=== PATIENT | male | born 1945 | race Caucasian/White ===

== ENCOUNTER 2020-11-17 13:34 | Emergency (ER) | payer OTHER ==
--- OUTSIDE RECORDS SUMMARY | 2020-11-17 13:42 | XMS REPORT | Continuity of Care Document ---
:1945 Author Organization [facility] t Address [address] [place] [address] Care Team Providers Name Role Phone Unavailable Unavailable Unavailable Problems Condition Condition Condition Status Onset Resolution Last Treating Co mments Source Name Details Category Date Date Treatment Clinician Date Incomplete Incomplete Diagnosis Active [facility] empt[facility]ying [facility] - of bladder of bladder Me moria l [facility] Elevated Elevated Diagnosis Active [facility] PSA PSA [facility] Allergies, Adverse Reactions, Alerts Allergy Allergy Status Severity Reaction(s) Onset Inactive Treating Comm ents Source Name Type Date Date Clinician Phenerga Adverse Active Info Not [facility] n Reaction Available [facility] Medications Ordered Filled Start Stop Current Ordering Indication Dosage Frequency Signature Comments Components Source Medication Medication Date Date Medication? Clinician (SIG) Name Name Gabapentin Gabapentin Yes Doris [address] [facility] [place] [facility] - [facility] Potassium Potassium Yes Doris [address] [facility] Bicarb-Citr Bicarb-Citr Luigi Lukes - ic Acid ic Acid Memoria l [facility] Losartan Losartan Yes Doris [address] Potassium-H Potassium-H [place] [facility] - CTZ CTZ Memoria l [facility] Coenzyme Coenzyme Yes Doris [address] Q-10 Q-10 [place] with a Lukes - meal Memoria l [facility] Tamsulosin Tamsulosin Yes Doris [address] HCl HCl [place] [facility] - [facility] Metoprolol Metoprolol Yes Doris [address] [facility] [address] Tartrate Tartrate [place] with food [facility] - Memoria l [facility] Zetia Zetia Yes Doris [address] [facility] [place] [facility] - [facility] Aspirin Aspirin Yes Doris [address] [facility] [place] [facility] - Memoria l [facility] Furosemide Furosemide Yes Doris [address] [facility] [place] [facility] Baclofen Baclofen Yes Doris not [facility] [place] defined [facility] Soma Soma Yes Doris not [facility] Compound Compound [place] defined [facility] Levothyroxi Levothyroxi Yes Doris [address] [facility] ne Sodium ne Sodium [place] on an [facility] - empty [facility] stomach [facility] Plavix Plavix Yes Doris [address] [facility] [place] [facility] Procedures This patient has no known procedures. Encounters Start End Encounter Admission Attending Care Care Encounter Source Date/Time Date/Time Type Type Clinicians Facility Department ID 2019-06-24 2019-06-24 Outpatient Iza Duron [id number] [facility] 13:15:00 13:15:00 t Specialty/U Suzanna kes - Specialty rology [facility] Results This patient has no known results.
--- NOTE | 2020-11-17 15:18 | RAD REPORT ---
EXAM DESCRIPTION: Gloria Single View11/17/2020 3:09 pm CLINICAL HISTORY: Shortness of breath COMPARISON: 2019 FINDINGS: The lungs appear grossly clear. Heart is normal size
[2020-11-17 15:33] LABS: Absolute Lymphocytes (CBC) 1.9 K/uL (0.7-4.9); Basophils % 0.9 % (0-1.3); Lymphocytes % 22.9 % (15.3-44.8); MPV 6.7 fL (7.6-11.3); RBC Red Blood Cell Count 4.11 M/uL (4.33-5.43)
[2020-11-17 15:45] LABS: Protime INR 1.03
[2020-11-17] MEDS ORDERED: Ringers Lactate 1,000 ML IV ONE (15:49)
[2020-11-17 15:50] LABS: ALT/SGPT 19 U/L (12-78); AST/SGOT 13 U/L (15-37); Albumin 3.1 g/dL (3.4-5.0); Alkaline Phosphatase 61 U/L (45-117); BUN Blood Urea Nitrogen 19 mg/dL (7-18); Bicarbonate 35 mmol/L (21-32); Bilirubin Direct 0.1 mg/dL (0-0.2); Bilirubin Total 0.4 mg/dL (0.2-1.0); Glucose Level 125 mg/dL (74-106); Magnesium 2.1 mg/dL (1.8-2.4); NT PRO-BNP 70 pg/mL (<450); Potassium 3.7 mmol/L (3.5-5.1); Protein, Total 7.5 g/dL (6.4-8.2); Sodium Level 135 mmol/L (136-145); Troponin (Emerg Dept Use Only) < 0.02 ng/mL (0.0-0.045)
[2020-11-17 16:22] LABS: Arterial Blood Carboxyhemoglob 1.3 % (0-1.5); Blood Gas Oxyhemoglobin 96.4 % (94-97); Blood O2 Saturation 98.7 % (92-98.5)
--- NOTE | 2020-11-17 17:23 | RAD REPORT ---
EXAM DESCRIPTION: CT - Abdomen Pelvis W Contrast - 11/17/2020 4:56 pm CLINICAL HISTORY: Abdominal pain COMPARISON: none. TECHNIQUE: Computed axial tomography of the abdomen pelvis was obtained. 100 cc Isovue-300 was admin istered intravenously. Oral contrast was not requested which limits evaluation of bowel. All CT scans are performed using dose optimization technique as appropriate and may include automated exposure control or mA/KV adjustment according to patient size. FINDINGS: Images are degraded by patient motion artifact The liver, spleen, pancreas, adrenal and right kidney appear unremarkable. 2.8 centimeter left renal cyst. There is no evidence of diverticulitis. Normal appendix. Post surgical changes involve the spine. Degenerative changes Increased density is present within the posterior subcutaneous tissues in the perianal region. IMPRESSION: Increased density is present within the posterior subcutaneous tissues in the perianal r egion. This may indicate inflammation and should be correlated clinically
--- NOTE | 2020-11-17 18:08 | EDPHYS ---
Physician Documentation [facility] Name: Alessandro Mckeon Age: 75 yrs Sex: Male : 1945 Arrival Date: 11/17/2020 Time: 13:37 Bed 26 Private MD: ED Physician Antolin Mcqueen HPI: 11/17 15:48 This 75 yrs old Male presents to ER via Wheelchair with complaints of General jr8 Weakness, Diarrhea. 15:48 For the past month patient has been suffering from persistent diarrhea. Stated that he jr8 has taken a round of Abx by PCP and had a telemedicine visit with Dr. Lombardo. Has not been able to produce stool sample for them for culture. Now to the point where he is getting short of breath at rest and very fatigued . Severity of symptoms: At their worst the symptoms were moderate in the emergency department the symptoms are unchanged. The patient has not experienced similar symptoms in the past. The patient has been recently seen by a physician:. Historical: - Allergies: 13:54 promethazine HCl; ll1 13:54 Phenergan; ll1 - PMHx: 13:54 Hypothyroidism; Hypertensive disorder; ll1 - PSHx: 13:54 7 heart stents; ll1 - Immunization history:: Flu vaccine is not up to date. - Social history:: Smoking status: Patient denies any tobacco usage or history of. ROS: 15:48 Eyes: Negative for injury, pain, redness, and discharge, ENT: Negative for injury, jr8 pain, and discharge, Neck: Negative for injury, pain, and swelling, Cardiovascular: Negative for chest pain, palpitations, and edema, Back: Negative for injury and pain, MS/Extremity: Negative for injury and deformity, Skin: Negative for injury, rash, and discoloration. 15:48 Neuro: Negative for headache, focal weakness, numbness, tingling, and seizure. 15:48 Constitutional: Positive for fatigue, malaise. 15:48 Respiratory: Positive for shortness of breath, at rest. 15:48 Abdomen/GI: Positive for diarrhea, abdominal cramps, Negative for nausea, vomiting. Exam: 15:48 Eyes: Pupils equal round and reactive to light, extra-ocular motions intact. Lids and jr8 lashes normal. Conjunctiva and sclera are non-icteric and not injected. Cornea within normal limits. Periorbital areas with no swelling, redness, or edema. ENT: Nares patent. No nasal discharge, no septal abnormalities noted. Tympanic membranes are normal and external auditory canals are clear. Oropharynx with no redness, swelling, or masses, exudates, or evidence of obstruction, uvula midline. Mucous membranes moist. Neck: Trachea midline, no thyromegaly or masses palpated, and no cervical lymphadenopathy. Supple, full range of motion without nuchal rigidity, or vertebral point tenderness. No Meningismus. Cardiovascular: Regular rate and rhythm with a normal S1 and S2. No gallops, murmurs, or rubs. Normal PMI, no JVD. No pulse deficits. Respiratory: Lungs have equal breath sounds bilaterally, clear to auscultation and percussion. No rales, rhonchi or wheezes noted. No increased work of breathing, no retractions or nasal flaring. Abdomen/GI: Soft, non-tender, with normal bowel sounds. No distension or tympany. No guarding or rebound. No evidence of tenderness throughout. Skin: Warm, dry with normal turgor. Normal color with no rashes, no lesions, and no evidence of cellulitis. Decubitus wound with dressing noted to buttock MS/ Extremity: Pulses equal, no cyanosis. Neurovascular intact. Full, normal range of motion. Neuro: Awake and alert, GCS 15, oriented to person, place, time, and situation. Cranial nerves II-XII grossly intact. Motor strength 5/5 in all extremities. Sensory grossly intact. Vital Signs: 13:56 BP 108 / 52; Pulse 73; Resp 20; Temp 96.4(O); Pulse Ox 91% ; Weight 113.4 kg; Height 5 ll1 ft. 11 in. (180.34 cm); Pain 6/10; 14:35 BP 124 / 74; Pulse 65; Resp 20; Pulse Ox 91% on 2 lpm NC; zb 15:36 BP 105 / 58; Pulse 55; Resp 18; Pulse Ox 92% on 2 lpm NC; zb 17:38 Pulse 70; Resp 18; Pulse Ox 96% on 2 lpm NC; zb 17:45 BP 126 / 61; Pulse 78; Resp 20; Pulse Ox 96% 2 lpm ; zb 13:56 Body Mass Index 34.87 (113.40 kg, 180.34 cm) ll1 MDM: 14:22 Patient medically screened. jr8 18:03 Data reviewed: vital signs, nurses notes, lab test result(s), EKG, radiologic studies, jr8 CT scan, plain films. Data interpreted: Pulse oximetry: on room air is 95 %. Interpretation: acceptable. 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 Response to treatment: the patient's symptoms have mildly improved after treatment. ED course: Patient hydrated for clinical concern for dehydration. No extreme electrolyte abnormality noted. Renal function stable. No cardiac or other blood work findings noted to suggest symptoms. CT without acute bowel process. Rest of imaging and ECG stable. Patient feeling slightly better. Could not give us a stool sample while here. Discussed with them that there is nothing we can admit on currently. Needs to eat and get that stool sample to Dr. Lombardo. If he were to worsen to come back and we would reevaluate. Patient and son understands and are good with plan . 11/17 14:43 Order name: Basic Metabolic Panel; Complete Time: 15:55 11/17 14:43 Order name: CBC with Diff; Complete Time: 15:46 11/17 14:43 Order name: LFT's; Complete Time: 15:55 11/17 14:43 Order name: Magnesium; Complete Time: 15:55 11/17 14:43 Order name: NT PRO-BNP; Complete Time: 15:55 11/17 14:43 Order name: PT-INR; Complete Time: 15:46 11/17 14:43 Order name: Troponin (emerg Dept Use Only); Complete Time: 15:55 11/17 14:43 Order name: XRAY Chest (1 view); Complete Time: 15:38 11/17 14:43 Order name: EKG; Complete Time: 14:44 11/17 14:43 Order name: Cardiac monitoring; Complete Time: 15:32 11/17 15:55 Order name: ABG; Complete Time: 16:58 11/17 16:31 Order name: CT Abd/Pelvis - IV Contrast Only; Complete Time: 17:31 11/17 14:43 Order name: EKG - Nurse/Tech; Complete Time: 15:32 11/17 14:43 Order name: IV Saline Lock; Complete Time: 15:32 11/17 14:43 Order name: Labs collected and sent; Complete Time: 15:32 11/17 14:43 Order name: O2 Per Protocol; Complete Time: 15:32 11/17 14:43 Order name: O2 Sat Monitoring; Complete Time: 15:32 Administered Medications: 15:29 Drug: Ringers - Lactated Ringers Solution 1000 ml Route: IV; Rate: bolus; Site: right zb antecubital; 18:25 Follow up: Response: No adverse reaction; IV Status: Completed infusion; IV Intake: zb 1000ml Disposition Summary: 11/17/20 18:07 Discharge Ordered Location: Home [facility] Problem: new jr8 Symptoms: have improved jr8 Condition: Stable jr8 Diagnosis - Diarrhea, unspecified jr8 - Dehydration jr8 Followup: jr8 - With: Shaheed Lombardo MD - When: 2 - 3 days - Reason: Recheck today's complaints, Continuance of care, Re-evaluation by your physician Discharge Instructions: - Discharge Summary Sheet jr8 - Dehydration, Adult jr8 - Diarrhea, Adult jr8 Forms: - Medication Reconciliation Form jr8 - Thank You Letter jr8 - Antibiotic Education jr8 - Prescription Opioid Use jr8 Addendum: 11/20/2020 13:49 Co-signature as Attending Physician, Antolin Mcqueen MD I agree with the assessment and k dr plan of care. Signatures: Dispatcher [employer] EDFL Antolin Mcqueen MD MD kdr Roszak, Josh, PA PA jr8 Marcel Baker RN RN ll1 Betina Arreola RN RN zb Corrections: (The following items were deleted from the chart) 11/17 14:54 14:44 Chest Single View+RAD.RAD.BRZ ordered. EDFL EDMS 15:55 15:48 Eyes: Pupils equal round and reactive to light, extra-ocular motions intact. Lids jr8 and lashes normal. Conjunctiva and sclera are non-icteric and not injected. Cornea within normal limits. Periorbital areas with no swelling, redness, or edema. ENT: Nares patent. No nasal discharge, no septal abnormalities noted. Tympanic membranes are normal and external auditory canals are clear. Oropharynx with no redness, swelling, or masses, exudates, or evidence of obstruction, uvula midline. Mucous membranes moist. Neck: Trachea midline, no thyromegaly or masses palpated, and no cervical lymphadenopathy. Supple, full range of motion without nuchal rigidity, or vertebral point tenderness. No Meningismus. Cardiovascular: Regular rate and rhythm with a normal S1 and S2. No gallops, murmurs, or rubs. Normal PMI, no JVD. No pulse deficits. Respiratory: Lungs have equal breath sounds bilaterally, clear to auscultation and percussion. No rales, rhonchi or wheezes noted. No increased work of breathing, no retractions or nasal flaring. Abdomen/GI: Soft, non-tender, with normal bowel sounds. No distension or tympany. No guarding or rebound. No evidence of tenderness throughout. Skin: Warm, dry with normal turgor. Normal color with no rashes, no lesions, and no evidence of cellulitis. MS/ Extremity: Pulses equal, no cyanosis. Neurovascular intact. Full, normal range of motion. Neuro: Awake and alert, GCS 15, oriented to person, place, time, and situation. Cranial nerves II-XII grossly intact. Motor strength 5/5 in all extremities. Sensory grossly intact. jr8 16:14 15:56 Abdomen Pelvis W Con+CT.RAD.BRZ ordered. EDMS EDMS
--- NOTE | 2020-11-17 18:08 | ER ---
Nurse's Notes [facility] Name: Alessandro Mckeon Age: 75 yrs Sex: Male : 1945 Arrival Date: 11/17/2020 Time: 13:37 Bed 26 Private MD: Diagnosis: Diarrhea, unspecified;Dehydration Presentation: 11/17 13:56 Chief complaint: Patient states: Weakness, fatigue, diarrhea for 3 days. Chronic ll1 buttocks wound he gets wound care for. Labored breathing noted per son. Coronavirus screen: Client denies travel out of the [place] in the last 14 days. At this time, the client does not indicate any symptoms associated with coronavirus-19. Ebola Screen: Patient denies travel to an Ebola-affected area in the 21 days before illness onset. Initial Sepsis Screen: Does the patient meet any 2 criteria? No. Patient's initial sepsis screen is negative. Does the patient have a suspected source of infection? No. Patient's initial sepsis screen is negative. Risk Assessment: Do you want to hurt yourself or someone else? Patient reports no desire to harm self or others. Onset of symptoms was November 15, 2020. 13:56 Method Of Arrival: Wheelchair ll1 13:56 Acuity: RAVEN 3 ll1 Historical: - Allergies: 13:54 promethazine HCl; ll1 13:54 Phenergan; ll1 - PMHx: 13:54 Hypothyroidism; Hypertensive disorder; ll1 - PSHx: 13:54 7 heart stents; ll1 - Immunization history:: Flu vaccine is not up to date. - Social history:: Smoking status: Patient denies any tobacco usage or history of. Screenin:16 Abuse screen: Denies threats or abuse. Denies injuries from another. Nutritional zb screening: No deficits noted. Tuberculosis screening: No symptoms or risk factors identified. Fall Risk Fall in past 12 months (25 points). Secondary diagnosis (15 points) impaired mobility, IV access (20 points). Ambulatory Aid- None/Bed Rest/Nurse Assist (0 pts). Gait- Normal/Bed Rest/Wheelchair (0 pts) Mental Status- Oriented to own ability (0 pts). Total Saldaña Fall Scale indicates High Risk Score (45 or more points). Fall prevention measures have been instituted. Side Rails Up X 2 Placed Close to Nursing Station Frequent Obs/Assessments Occuring Family Present and informed to notify staff if the need to leave the bedside As available patient and family educated on Fall Prevention Program and Strategies. Assessment: 14:17 General: Appears in no apparent distress. Behavior is calm, cooperative, appropriate zb for age, Reports fatigue for >3 days. Pain: Complains of pain in buttocks and abdomen Pain began gradually, 4 weeks. Neuro: Level of Consciousness is awake, alert, obeys commands, Oriented to person, place, time, situation. Cardiovascular: Patient's skin is warm and dry. Respiratory: Airway is patent Respiratory effort is labored, Respiratory pattern is regular, symmetrical. GI: Abdomen is round distended, Abd is soft and non tender X 4 quads. Reports diarrhea. Derm: Skin is intact, is healthy with good turgor, Skin is dry, Skin is normal. Derm: Decubitus located on sacrum approximately 2.6 cm to 7.5 cm is stage III has erythematous edges is draining moderate amount serosanguinous. Musculoskeletal:. 14:37 Reassessment: ECP at bedside. zb 14:53 Reassessment: x-ray at bedside. zb 15:32 Reassessment: Patient appears in no apparent distress at this time. Patient and/or zb family updated on plan of care and expected duration. Pain level reassessed. family remains at bedside. patient remains on 2 litters of oxygen. EKG given to ECP. IV fluid intact. no issues at this time. 16:45 Reassessment: Patient appears in no apparent distress at this time. Patient and/or zb family updated on plan of care and expected duration. Pain level reassessed. 17:45 Reassessment: Patient appears in no apparent distress at this time. Patient and/or zb family updated on plan of care and expected duration. Pain level reassessed. family remains at bedside. 17:58 Reassessment: ECP at bedside discussing care with patient. zb Vital Signs: 13:56 BP 108 / 52; Pulse 73; Resp 20; Temp 96.4(O); Pulse Ox 91% ; Weight 113.4 kg; Height 5 ll1 ft. 11 in. (180.34 cm); Pain 6/10; 14:35 BP 124 / 74; Pulse 65; Resp 20; Pulse Ox 91% on 2 lpm NC; zb 15:36 BP 105 / 58; Pulse 55; Resp 18; Pulse Ox 92% on 2 lpm NC; zb 17:38 Pulse 70; Resp 18; Pulse Ox 96% on 2 lpm NC; zb 17:45 BP 126 / 61; Pulse 78; Resp 20; Pulse Ox 96% 2 lpm ; zb 13:56 Body Mass Index 34.87 (113.40 kg, 180.34 cm) ll1 ED Course: 13:37 Patient arrived in ED. wm 13:54 Arm band placed on Patient placed in an exam room, on a stretcher. ll1 13:58 Triage completed. ll1 14:00 Betina Arreola, MARY is Primary Nurse. zb 14:22 J Carlos Monroe PA is PHCP. jr8 14:22 Antolin Mcqueen MD is Attending Physician. jr8 15:09 XRAY Chest (1 view) In Process Unspecified. EDMS 15:28 Patient has correct armband on for positive identification. Call light in reach. Side zb rails up X 1. property assessment monitor on. Pulse ox on. NIBP on. Door closed. Noise minimized. 15:28 Initial lab(s) drawn, by me, sent to lab. EKG done, by ED staff, reviewed by J Carlos TALAMANTES. Inserted saline lock: 20 gauge in right antecubital area, using aseptic technique. Blood collected. 16:56 CT Abd/Pelvis - IV Contrast Only In Process Unspecified. EDMS 18:06 Shaheed Lombardo MD is Referral Physician. jr8 18:25 No provider procedures requiring assistance completed. IV discontinued, intact, zb bleeding controlled, No redness/swelling at site. Pressure dressing applied. Administered Medications: 15:29 Drug: Ringers - Lactated Ringers Solution 1000 ml Route: IV; Rate: bolus; Site: right zb antecubital; 18:25 Follow up: Response: No adverse reaction; IV Status: Completed infusion; IV Intake: zb 1000ml Intake: 18:25 IV: 1000ml; Total: 1000ml. zb Outcome: 18:07 Discharge ordered by . jr8 18:25 Discharged to home ambulatory. zb 18:25 Condition: stable 18:25 Discharge instructions given to patient, family, Instructed on discharge instructions, follow up and referral plans. Demonstrated understanding of instructions, follow-up care. 18:25 Patient left the ED. mikael Signatures: Dispatcher [employer] EDMS J Carlos Monroe PA PA jr8 Marcel Baker RN RN ll1 Betina Arreola RN RN Queenie Elizabeth
[2020-11-17 18:34] VITALS: TEMP 96.4
[2020-11-17 18:39] VITALS: O2SAT 96
[2020-11-17 18:41] VITALS: BP 126/61
--- NOTE | 2020-11-21 16:16 | EKG ---
Test Date: 2020-11-17 Test Time: 15:13:17 Material Hauler: KVNG MEASUREMENT RESULTS: Intervals: Rate: 58 [place]: 196 QRSD: 130 QT: 432 QTc: 424 [place]: P: 70 [place]: 196 QRS: 79 T: 43 INTERPRETIVE STATEMENTS: Sinus bradycardia Right bundle branch block Inferior infarct, age undetermined Abnormal ECG Compared to ECG 02/05/2017 10:44:57 Right bundle-branch block now present Sinus arrhythmia no longer present First degree AV block no longer present Myocardial infarct finding still present Electronically Signed On 11-21-20 16:09:18 CDT by Bob Galdamez
== END 2020-11-17 18:25 | disposition home or self-care (01) ==
LOC: ER 13:34
DX: E86.0 Dehydration (principal); I10 Essential (primary) hypertension; Z95.818 Presence of other cardiac implants and grafts; Z88.8 Allergy status to other drugs, medicaments and biological substances
CPT/HCPCS: 96365; 93005; 85025; 80048; 36415; 83735; 85610; 80076; 84484; 83880; 74177; 71045; 82805; 99284; 96366; Q9967; J7120

== ENCOUNTER 2020-11-29 11:17 | Inpatient (IN) | payer OTHER ==
--- OUTSIDE RECORDS SUMMARY | 2020-11-29 11:21 | XMS REPORT | Continuity of Care Document ---
:1945 Author Organization [facility] t Address [address] [place] [address] Care Team Providers Name Role Phone Unavailable Unavailable Unavailable Problems Condition Condition Condition Status Onset Resolution Last Treating Co mments Source Name Details Category Date Date Treatment Clinician Date Incomplete Incomplete Diagnosis Active [facility] emptying emptying [facility]ukes - of bladder of bladder Me moria l [facility] Elevated Elevated Diagnosis Active [facility] PSA PSA [facility] Allergies, Adverse Reactions, Alerts Allergy Allergy Status Severity Reaction(s) Onset Inactive Treating Comm ents Source Name Type Date Date Clinician Phenerga Adverse Active Info Not [facility] n Reaction Available [facility] Medications Ordered Filled Start Stop Current Ordering Indication Dosage Frequency Signature Comments Components Source Medication Medication Date Date Medication? Clinician (SIG) Name Name Gabapentin Gabapentin Yes Doris [address] [place] [facility] - [facility] Potassium Potassium Yes Doris [address] Bicarb-Citr Bicarb-Citr Luigi Lukes - ic Acid ic Acid Memoria l [facility] Losartan Losartan Yes Doris [address] Potassium-H Potassium-H Luigi Lukes - CTZ CTZ Memoria l [facility] Coenzyme Coenzyme Yes Doris [address] Q-10 Q-10 Luigi with a Lukes - meal Memoria l [facility] Tamsulosin Tamsulosin Yes Doris [address] HCl HCl [place] [facility] - [facility] Metoprolol Metoprolol Yes Doris [address] Tartrate Tartrate [place] with food [facility]ukes - Memoria l [facility] Zetia Zetia Yes Doris [address] [facility] [place] [facility] - [facility] Aspirin Aspirin Yes Doris [address] [facility] [place] [facility] - [facility] Furosemide Furosemide Yes Doris [address] [facility] [place] [facility] Baclofen Baclofen Yes Doris not [facility] [place] defined [facility] Soma Soma Yes Doris not [facility] Compound Compound [place] defined [facility] Levothyroxi Levothyroxi Yes Doris [address] [facility] ne Sodium ne Sodium [place] on an [facility] - empty [facility] stomach in l [facility] Plavix Plavix Yes Doris [address] [facility] [place] [facility] Procedures This patient has no known procedures. Encounters Start End Encounter Admission Attending Care Care Encounter Source Date/Time Date/Time Type Type Clinicians Facility Department ID 2019-06-24 2019-06-24 Outpatient Iza Duron [id number] [facility] 13:15:00 13:15:00 t Specialty/U Suzanna kes - Specialty ro[facility] Results This patient has no known results.
[2020-11-29 15:29] LABS: Absolute Lymphocytes (CBC) 2.4 K/uL (0.7-4.9); Basophils % 0.4 % (0-1.3); Hematocrit 38.6 % (39.6-49.0); Lymphocytes % 21.4 % (15.3-44.8); MPV 7.2 fL (7.6-11.3); RBC Red Blood Cell Count 4.23 M/uL (4.33-5.43)
[2020-11-29 15:30] LABS: Protime INR 1.18
--- NOTE | 2020-11-29 16:02 | EDPHYS ---
Physician Documentation [facility] Name: Alessandro Mckeon Age: 75 yrs Sex: Male : 1945 Arrival Date: 11/29/2020 Time: 11:18 Bed 26 Private MD: Leonardo Camara B ED Physician Antolin Mcqueen HPI: 11/29 14:00 This 75 yrs old Male presents to ER via Wheelchair with complaints of Wound cp Check. 14:00 decubitus ulcer. cp 14:00 Onset: The symptoms/episode began/occurred 3 month(s) ago. Associated signs and cp symptoms: Pertinent positives: drainage, Pertinent negatives: fever. patient with chronic decubitus ulcer to coccyx area for past [address] Hunter today at wound care and referred to ED for admission. Historical: - Allergies: 12:15 Phenergan; jl7 12:15 promethazine HCl; jl7 - PMHx: 12:15 Hypertensive disorder; Hypothyroidism; jl7 13:24 weakness; ap3 - PSHx: 12:15 7 heart stents; jl7 - Immunization history:: Adult Immunizations not up to date, Client reports having NOT received the Covid vaccine. - Social history:: Smoking status: Patient denies any tobacco usage or history of. ROS: 14:05 Constitutional: Negative for body aches, chills, fever, poor PO intake. cp 14:05 Eyes: Negative for injury, pain, redness, and discharge. cp 14:05 ENT: Negative for ear pain, sore throat, difficulty swallowing, difficulty handling secretions. 14:05 Cardiovascular: Negative for chest pain, palpitations. 14:05 Respiratory: Negative for cough, shortness of breath, wheezing. 14:05 Abdomen/GI: Positive for abdominal pain, Negative for vomiting, diarrhea, constipation, black/tarry stool, rectal bleeding. 14:05 : Negative for urinary symptoms. 14:05 Skin: Positive for of the coccyx, pressure ulcer. 14:05 Neuro: Negative for altered mental status. 14:05 All other systems are negative. Exam: 14:10 Constitutional: The patient appears in no acute distress, alert, awake, cp non-diaphoretic, non-toxic, well developed, well nourished. 14:10 Head/Face: Normocephalic, atraumatic. cp 14:10 Eyes: Periorbital structures: appear normal, Conjunctiva: normal, no exudate, no injection, Sclera: no appreciated abnormality, Lids and lashes: appear normal, bilaterally. 14:10 ENT: External ear(s): are unremarkable, Nose: is normal, Mouth: Lips: moist, Oral mucosa: moist, Posterior pharynx: Airway: no evidence of obstruction, patent. 14:10 Chest/axilla: Inspection: normal, Palpation: is normal, no crepitus, no tenderness. 14:10 Cardiovascular: Rate: normal. 14:10 Respiratory: the patient does not display signs of respiratory distress, Respirations: normal, no use of accessory muscles, no retractions, labored breathing, is not present, Breath sounds: are clear throughout, no decreased breath sounds. 14:10 Abdomen/GI: Inspection: abdomen appears normal, Bowel sounds: active, all quadrants, Palpation: abdomen is soft and non-tender, in all quadrants. 14:10 Skin: stage 3-4 pressure ulcer noted to area of coccyx with open area the size approximately of golf ball, scant drainage noted, moderate surrounding erythema. 14:10 Neuro: Orientation: to person, place \T\ time. Mentation: is normal. Vital Signs: 12:14 BP 131 / 64; Pulse 78; Resp 17; Temp 97.4; Pulse Ox 99% ; Weight 113.4 kg; Height 6 ft. jl7 (182.88 cm); Pain 8/10; 13:26 BP 94 / 65; Pulse 66; Resp 19; Pulse Ox 96% on R/A; Pain 8/10; ap3 14:30 BP 127 / 79; Pulse 70; Resp 18; Pulse Ox 97% on R/A; ap3 16:07 BP 107 / 73; Pulse 72; Resp 21; Pulse Ox 94% on R/A; ap3 17:54 BP 137 / 68; Pulse 68; Resp 16; Pulse Ox 99% on R/A; ap3 18:38 BP 124 / 63; Pulse 78; Resp 19; Pulse Ox 96% on R/A; ap3 20:17 BP 117 / 64; Pulse 71; Resp 16; Temp 98(O); Pulse Ox 97% on R/A; ak2 12:14 Body Mass Index 33.91 (113.40 kg, 182.88 cm) jl7 MDM: 13:46 Patient medically screened. cp 16:00 Data reviewed: vital signs, nurses notes, lab test result(s). 11/29 13:58 Order name: Basic Metabolic Panel 11/29 13:58 Order name: CBC with Diff; Complete Time: 00:12 11/30 00:12 Interpretation: Normal except: WBC 11.10; RBC 4.23; HGB 12.7; HCT 38.6; MPV 7.2; MN% cp 14.1; MNA 1.6. 11/29 13:58 Order name: LFT's; Complete Time: 00:12 11/30 00:12 Interpretation: Normal except: TP 8.4; ALB 3.0; GLOB 5.4; A/G 0.6. 11/29 13:58 Order name: Magnesium; Complete Time: 00:12 11/29 13:58 Order name: NT PRO-BNP; Complete Time: 00:12 11/29 13:58 Order name: PT-INR; Complete Time: 00:12 11/29 13:58 Order name: Troponin (emerg Dept Use Only); Complete Time: 00:12 11/29 13:58 Order name: Basic Metabolic Panel; Complete Time: 00:12 EDMS 11/30 00:12 Interpretation: Normal except: NA 134; CL 94; CO2 35; BUN 22. 11/29 14:00 Order name: Wound Culture 11/29 14:00 Order name: Procalcitonin; Complete Time: 00:12 11/29 14:00 Order name: Lactate; Complete Time: 00:12 11/29 14:00 Order name: Blood Culture Adult (2) 11/29 14:20 Order name: Urine Microscopic Only; Complete Time: 00:12 11/30 00:13 Interpretation: Normal except: UWBC TNTC; UBACT LOADED. 11/29 17:04 Order name: Urine Dipstick-Ancillary; Complete Time: 00:12 EDMS 11/30 00:13 Interpretation: Normal except: UBLD Trace-intact; U NIT Positive; UESTR 2+. 11/29 17:57 Order name: Vancomycin Level Trough; Complete Time: 00:12 EDMS 11/29 18:45 Order name: SARS-COV-2 RT PCR; Complete Time: 00:12 EDMS 11/30 04:08 Order name: CBC with Automated Diff EDMS 11/30 04:16 Order name: Lipid Profile EDMS 11/30 04:35 Order name: Protime (+INR) EDMS 11/30 12:32 Order name: CORONAVIRUS EDMS 11/30 13:30 Order name: SARS-COV-2 RT PCR EDMS 11/30 14:53 Order name: Hemoglobin A1c EDMS 12/01 06:29 Order name: CBC with Automated Diff EDMS 12/01 06:35 Order name: Basic Metabolic Panel EDMS 12/01 06:35 Order name: Phosphorus EDMS 12/01 06:35 Order name: NT PRO-BNP EDMS 12/01 06:35 Order name: Magnesium EDMS 12/01 07:29 Order name: Protime (+INR) EDMS 12/01 07:29 Order name: PTT, Activated Partial Thromb EDMS 11/29 13:58 Order name: XRAY Chest (1 view); Complete Time: 00:12 cp 11/29 13:58 Order name: EKG; Complete Time: 13:59 cp 11/29 13:58 Order name: Cardiac monitoring; Complete Time: 16:11 cp 11/29 13:58 Order name: EKG - Nurse/Tech; Complete Time: 17:54 cp 11/29 13:58 Order name: IV Saline Lock; Complete Time: 15:20 cp 11/29 13:58 Order name: Labs collected and sent; Complete Time: 15:20 11/29 13:58 Order name: O2 Per Protocol; Complete Time: 13:58 cp 11/29 13:58 Order name: O2 Sat Monitoring; Complete Time: 13:58 cp 11/29 14:51 Order name: CT Abd/Pelvis - IV Contrast Only 11/29 16:55 Order name: CT; Complete Time: 00:12 EDMS 12/01 07:52 Order name: Procalcitonin EDMS 12/01 08:12 Order name: Manual Differential EDMS 12/01 08:43 Order name: Urine Culture EDMS 12/01 11:27 Order name: Creatinine EDMS 12/01 11:27 Order name: Vancomycin Level Trough EDMS 12/01 17:36 Order name: MRI EDMS 12/02 06:03 Order name: Sedimentation Rate, [place] EDMS 12/02 06:08 Order name: CBC with Automated Diff EDMD 12/02 06:12 Order name: Basic Metabolic Panel EDMD 12/02 06:12 Order name: NT PRO-BNP EDMD 12/02 06:12 Order name: Magnesium EDMD 12/02 06:29 Order name: RAD EDMD 12/02 08:11 Order name: Procalcitonin EDMD 12/02 10:22 Order name: Wound Culture EDMD 12/02 13:51 Order name: Anaerobic Culture EDMD 12/03 09:35 Order name: CORONAVIRUS EDMD 12/03 10:30 Order name: SARS-COV-2 RT PCR EDMD 12/03 10:51 Order name: Vancomycin Level Trough EDMD 11/29 14:07 Order name: Shirley; Complete Time: 14:58 ap3 11/29 14:20 Order name: Urine Dipstick-Ancillary (obtain specimen); Complete Time: 17:07 cp Administered Medications: 15:40 Drug: NS 0.9% 500 ml Route: IV; Rate: 500 ml/hr; Site: right antecubital; ap3 17:54 Follow up: IV Status: Completed infusion; IV Intake: 500ml ap3 18:41 Follow up: IV Status: Completed infusion; IV Intake: 500ml ap3 18:37 Not Given (Physician Discretion): vancoMYCIN 1 grams IVPB once over 2 hrs ap3 18:37 Not Given (Physician Discretion): Zosyn (piperacillin-tazobactam) 3.375 grams IVPB once ap3 over 60 mins; (mix in NS 100 mL) Disposition: 12/04 06:52 Co-signature as Attending Physician, Antolin Mcqueen MD I agree with the assessment and kdr plan of care. Disposition Summary: 11/29/20 16:01 Hospitalization Ordered Hospitalization Status: Inpatient Admission cp Provider: Alona Allen cp Condition: Stable cp Problem: an ongoing problem cp Symptoms: have improved cp Bed/Room Type: Standard cp Location: Telemetry/MedSurg (Inpatient)(12/03/20 13:38) dw Room Assignment: 214(12/03/20 13:38) dw Diagnosis - Unspecified open wound of unspecified buttock, initial encounter cp - UTI/ Urinary tract infection, site not specified cp Discharge Instructions: - Discharge Summary Sheet ss Forms: - Medication Reconciliation Form cp - SBAR form cp Signatures: Dispatcher [employer] EDMS Sarah Obregon RN RN Parisa Davidson, RN RN dw Antolin Mcqueen MD MD kdr Page, Corey, PA PA cp Leal, Jahala RN RN jl7 Tequila Cross RN RN ap3 Corrections: (The following items were deleted from the chart) 11/29 14:20 14:07 Shirley ordered. [facility] 15:50 14:00 CORONAVIRUS+MR.LAB.BRZ ordered. EDMS EDMS :14 16:01 Telemetry/MedSurg (Inpatient) [facility] 20:14 16:01 [facility] 12/03 13:38 11/29 20:14 BR ER HOLD [facility] 12/03 13:38 11/29 20:14 ERHOLD- [facility]
--- NOTE | 2020-11-29 16:02 | ER ---
Nurse's Notes [facility] Name: Alessandro Mckeon Age: 75 yrs Sex: Male : 1945 Arrival Date: 11/29/2020 Time: 11:18 Bed 26 Private MD: Leonardo Camara B Diagnosis: Unspecified open wound of unspecified buttock, initial encounter;UTI/ Urinary tract infection, site not specified Presentation: 11/29 12:14 Chief complaint: Spouse and/or significant other states: Sent by Dr. Hunter for jl7 sacral wound that's not healing. Coronavirus screen: Client denies travel out of the [place] in the last 14 days. At this time, the client does not indicate any symptoms associated with coronavirus-19. Ebola Screen: No symptoms or risks identified at this time. Initial Sepsis Screen: Does the patient meet any 2 criteria? No. Patient's initial sepsis screen is negative. Does the patient have a suspected source of infection? No. Patient's initial sepsis screen is negative. Risk Assessment: Do you want to hurt yourself or someone else? Patient reports no desire to harm self or others. Onset of symptoms was August 29, 2020. 12:14 Method Of Arrival: Wheelchair jl7 12:14 Acuity: RAVEN 3 jl7 Triage Assessment: 12:15 General: Appears in no apparent distress. uncomfortable, Behavior is calm, cooperative, jl7 appropriate for age. Pain: Complains of pain in buttocks Pain currently is 8 out of 10 on a pain scale. Historical: - Allergies: 12:15 Phenergan; jl7 12:15 promethazine HCl; jl7 - PMHx: 12:15 Hypertensive disorder; Hypothyroidism; jl7 13:24 weakness; ap3 - PSHx: 12:15 7 heart stents; jl7 - Immunization history:: Adult Immunizations not up to date, Client reports having NOT received the Covid vaccine. - Social history:: Smoking status: Patient denies any tobacco usage or history of. Screenin:24 Abuse screen: Denies threats or abuse. Nutritional screening: No deficits noted. ap3 Tuberculosis screening: No symptoms or risk factors identified. Fall Risk Fall in past 12 months (25 points). Secondary diagnosis (15 points) impaired mobility, No IV (0 pts). Ambulatory Aid- Crutches/Cane/Walker (15 pts). Gait- Impaired (20 pts.). Mental Status- Oriented to own ability (0 pts). Total Saldaña Fall Scale indicates High Risk Score (45 or more points). Fall prevention measures have been instituted. Side Rails Up X 2 Placed Close to Nursing Station Frequent Obs/Assessments Occuring Family Present and informed to notify staff if the need to leave the bedside As available patient and family educated on Fall Prevention Program and Strategies. Assessment: 13:22 General: Appears in no apparent distress. Behavior is calm, cooperative, appropriate ap3 for age. Pain: Complains of pain in coccyx Pain does not radiate. Pain currently is 8 out of 10 on a pain scale. Pain began gradually, over the last couple of months Is chronic. Neuro: Level of Consciousness is awake, alert, obeys commands, Oriented to person, place, time, situation. Cardiovascular: Denies chest pain, shortness of breath, Capillary refill < 3 seconds Patient's skin is warm and dry. Respiratory: Airway is patent Respiratory effort is even, unlabored, Respiratory pattern is regular, symmetrical. GI: Patient currently denies diarrhea, nausea. : Reports inability to void, patient self caths to void. EENT: No signs and/or symptoms were reported regarding the EENT system. Derm: Wound noted coccyx. 16:06 Reassessment: Patient and/or family updated on plan of care and expected duration. Pain ap3 level reassessed. Patient is alert, oriented x 3, equal unlabored respirations, skin warm/dry/pink. 17:55 Reassessment: Patient and/or family updated on plan of care and expected duration. Pain ap3 level reassessed. pt resting. eyes closed. respirations even and unlabored. patients son is at the bedside. 20:17 General: Pan Mckeon (son):[phone]. ak2 20:59 Reassessment: clean of bm. pt wound dressed.. ak2 21:38 General: report given to rn. ak2 Vital Signs: 12:14 BP 131 / 64; Pulse 78; Resp 17; Temp 97.4; Pulse Ox 99% ; Weight 113.4 kg; Height 6 ft. jl7 (182.88 cm); Pain 8/10; 13:26 BP 94 / 65; Pulse 66; Resp 19; Pulse Ox 96% on R/A; Pain 8/10; ap3 14:30 BP 127 / 79; Pulse 70; Resp 18; Pulse Ox 97% on R/A; ap3 16:07 BP 107 / 73; Pulse 72; Resp 21; Pulse Ox 94% on R/A; ap3 17:54 BP 137 / 68; Pulse 68; Resp 16; Pulse Ox 99% on R/A; ap3 18:38 BP 124 / 63; Pulse 78; Resp 19; Pulse Ox 96% on R/A; ap3 20:17 BP 117 / 64; Pulse 71; Resp 16; Temp 98(O); Pulse Ox 97% on R/A; ak2 12:14 Body Mass Index 33.91 (113.40 kg, 182.88 cm) jl7 ED Course: 11:18 Patient arrived in ED. am2 11:18 Leonardo Camara MD is Private Physician. am2 12:15 Triage completed. jl7 12:15 Arm band placed on right wrist. Patient placed in waiting room, Patient notified of jl7 wait time. 13:11 Tequila Cross, MARY is Primary Nurse. ap3 13:25 Patient has correct armband on for positive identification. Bed in low position. Call ap3 light in reach. Side rails up X2. Adult w/ patient. Pulse ox on. NIBP on. Door closed. Noise minimized. Warm blanket given. 13:27 Epifanio Go PA is PHCP. cp 13:27 Antolin Mcqueen MD is Attending Physician. cp 13:33 Pt visited by son. ap3 13:47 Nurse Practitioner and/or Physician Manager Home Improvement to see patient. ap3 15:30 XRAY Chest (1 view) In Process Unspecified. EDMS 15:59 Alona Allen MD is Hospitalizing Provider. cp 16:17 Patient moved to [place] via wheelchair. ap3 Administered Medications: 15:40 Drug: NS 0.9% 500 ml Route: IV; Rate: 500 ml/hr; Site: right antecubital; ap3 17:54 Follow up: IV Status: Completed infusion; IV Intake: 500ml ap3 18:41 Follow up: IV Status: Completed infusion; IV Intake: 500ml ap3 18:37 Not Given (Physician Discretion): vancoMYCIN 1 grams IVPB once over 2 hrs ap3 18:37 Not Given (Physician Discretion): Zosyn (piperacillin-tazobactam) 3.375 grams IVPB once ap3 over 60 mins; (mix in NS 100 mL) Intake: 17:54 IV: 500ml; Total: 500ml. ap3 18:41 IV: 500ml; Total: 1000ml. ap3 Outcome: 16:01 Decision to Hospitalize by Provider. cp 12/03 14:42 Patient left the ED. ll1 Signatures: Dispatcher [employer] EDMS Epifanio Go PA PA cp Dorie Morales, RN RN jl7 Tequila Scott Amanda, RN RN ap3 Marcel Baker RN RN ll1 Alan Turpin
[2020-11-29 16:06] LABS: ALT/SGPT 22 U/L (12-78); AST/SGOT 17 U/L (15-37); Alkaline Phosphatase 72 U/L (45-117); BUN Blood Urea Nitrogen 22 mg/dL (7-18); Bicarbonate 35 mmol/L (21-32); Bilirubin Direct 0.2 mg/dL (0-0.2); Bilirubin Total 0.6 mg/dL (0.2-1.0); Glucose Level 106 mg/dL (74-106); Magnesium 2.3 mg/dL (1.8-2.4); NT PRO-BNP 107 pg/mL (<450); Protein, Total 8.4 g/dL (6.4-8.2); Sodium Level 134 mmol/L (136-145); Troponin (Emerg Dept Use Only) < 0.02 ng/mL (0.0-0.045)
[2020-11-29] MEDS ORDERED: NA CHLORIDE 0.9% 500 ML ONE (16:08)
[2020-11-29] MEDS ORDERED: ACETAMINOPHEN 500 MG TAB PO PRN (16:13)
[2020-11-29] MEDS ORDERED: ONDANSETRON 4 MG/2 ML VIAL IV PRN (16:13)
--- NOTE | 2020-11-29 16:25 | P.HP ---
Certification for Inpatient Patient admitted to: Inpatient With expected LOS: >2 Midnights Patient will require the following post-hospital care: None Practitioner: I am a practitioner with admitting privileges, knowledge of patient current condition, hospital course, and medical plan of care. Services: Services provided to patient in accordance with Admission requirements found in Title 42 Section 412.3 of the Code of Federal Regulations <Perla Sawyer Bridger - Last Filed: 11/30/20 04:24> Patient History Date of Service: 11/29/20 Reason for admission: Sacral wound History of Present Illness: Patient is a 75-year-old male with a past medical history significant for hypothyroidism, GERD, hypertension, obesity, CAD, neuropathy who presents with complaint of sacral wound. Patient reports that he has been having decubitus ulcer in the coccyx since August 29, 2020. Patient follows up with surgeon at the wound care center. Patient also have ulcers under his right leg and upper back. Patient followed up with surgeon at the wound care center today and was referred to the hospital for possible incision and debridement. Patient reports associated signs and symptoms of low-grade fever, sacral pain, weakness and fatigue. Patient denies any other signs or symptoms. Symptoms are aggravated or relieved by nothing. Patient decided to present to the hospital as directed by his wound care doctor. Home medications list reviewed: No - Past Medical/Surgical History Diabetic: No -: Hypothyroidism -: GERD -: HTN -: Neuropathy -: Obesity -: Claustrophobia -: CAD -: back surgery -: bilateral knee surgery -: endartarectomy -: heart stents x7 -: bladder sx - Family History Mother -: Heart disease, Diabetes Father -: Hypertension - Social History Smoking Status: Never smoker Alcohol use: No CD- Drugs: No Caffeine use: Yes Place of Residence: Home <Perla Sawyer - Last Filed: 11/30/20 04:24> Date of Service: 11/29/20 <Alona Allen - Last Filed: 12/01/20 23:48> Allergies promethazine HCl [From Phenergan] Adverse Reaction (Verified 07/04/15 05:05) "makes me go crazy" Home Medications: Clopidogrel Bisulfate [Plavix*] 75 mg PO DAILY 07/04/15 Ezetimibe [Zetia*] 10 mg PO DAILY 07/04/15 Furosemide [Lasix] 40 mg PO BID 09/07/19 Levothyroxine Sodium [Synthroid] 175 mcg PO DAILY 09/07/19 Cholestyramine/Aspartame [Cholestyramine Light Packet] 2 packet PO BEDTIME 11/30/20 Famotidine 1 tab PO BEDTIME 11/30/20 Hydralazine [Apresoline*] 1 tab PO TID 11/30/20 Metoprolol Tartrate 1 tab PO DAILY 11/30/20 Tamsulosin [Flomax*] 1 cap PO DAILY 11/30/20 Review of Systems General: Fever, Weakness, Other (Fatigue ) Eyes: Unremarkable ENT: Unremarkable Respiratory: Unremarkable Cardiovascular: Unremarkable Gastrointestinal: Unremarkable Genitourinary: Unremarkable Musculoskeletal: Unremarkable Integumentary: Unremarkable Neurological: Weakness Lymphatics: Unremarkable <Perla Sawyer E - Last Filed: 11/30/20 04:24> Physical Examination - Physical Exam General: Alert, Oriented x3 HEENT: Atraumatic, PERRLA, Mucous membr. moist/pink, EOMI, Sclerae nonicteric Neck: Supple, 2+ carotid pulse no bruit, No LAD, Without JVD or thyroid abnormality Respiratory: Clear to auscultation bilaterally, Normal air movement Cardiovascular: No edema, Regular rate/rhythm, Normal S1 S2 Capillary refill: <2 Seconds Gastrointestinal: Normal bowel sounds, No tenderness Musculoskeletal: No clubbing, No tenderness Integumentary: No rashes, Skin breakdown, Pressure ulcer Neurological: Normal gait, Normal speech, Normal strength at 5/5 x4 extr, Normal tone, Normal affect Lymphatics: No axilla or inguinal lymphadenopathy Urinary: Shirley catheter External genitalia: Deferred Rectal: Deferred - Studies Laboratory Data (last 24 hrs) 11/29/20 15:12: PT 13.6 H, INR 1.18 11/29/20 15:12: WBC 11.10 H D, Hgb 12.7 L, Hct 38.6 L, Plt Count 328 11/29/20 15:12: Sodium 134 L, Potassium 4.0, BUN 22 H, Creatinine 0.80, Glucose 106, Magnesium 2.3, Total Bilirubin 0.6, AST 17, ALT 22, Alkaline Phosphatase 72 <Perla Sawyer E - Last Filed: 11/30/20 04:24> - Studies Microbiology Data (last 24 hrs): 11/29/20 14:17 Wound - Coccyx Gram Stain - Final <Alona Allen - Last Filed: 12/01/20 23:48> Assessment and Plan - Plan --Decubitus ulcer. Blood and wound cultures pending. Patient sent from surgeon's clinic for possible I&D. Surgeon consulted. Patient placed on antibiotics. Will await further recommendations from surgeon. --Acute pain. We will manage pain with current pain medication regimen. --Hypertension. Stable. Continue home medications. --GERD. Continue Home medications. --Class I obesity. Likely secondary to excess calories intake. Patient co unseled on diet and exercise therapy. --Hypothyroidism. Continue Synthroid. --History of CAD with stents. Continue aspirin and Plavix when appropriate --Peripheral neuropathy. Continue gabapentin. --DVT prophylaxis with heparin subQ. Discharge Plan: Home Plan to discharge in: Greater than 2 days - Advance Directives Does patient have a Living Will: No Does patient have a Durable POA for Healthcare: No - Code Status/Comfort Care Code Status Assessed: Yes Code Status: Full Code Physician Review: Patient Assessed, Agree with Above Assessment and Plan Critical Care: No <Perla Sawyer - Last Filed: 11/30/20 04:24> - Problems (Diagnosis) (1) Pressure ulcer of coccygeal region, stage 3 Current Visit: No Status: Ruled-out (2) CAD (coronary artery disease) Current Visit: No Status: Acute (3) GERD (gastroesophageal reflux disease) Current Visit: No Status: Acute (4) Hx of heart artery stent Current Visit: No Status: Acute (5) Hypertension Current Visit: No Status: Acute (6) Hypothyroidism Current Visit: No Status: Acute (7) Obesity (BMI 30.0-34.9) Current Visit: No Status: Acute <Alona Allen - Last Filed: 12/01/20 23:48> Date of Service: 11/29/20 Chart reviewed; events of the last 24 hr noted. Spoke with General surgery Dr. Hunter he wants to admit the patient to the hospital for possible debridement of the wound. However, patient will need continued IV antibiotic therapy. Will Consul wound healing for assistance with management of the wound. Patient's also who recently need really does not have anyone to care for him. Patient may benefit from going to a nursing facility for shelter care including physical therapy and wound healing. <Alona Allen - Last Filed: 12/01/20 23:48>
--- NOTE | 2020-11-29 16:54 | RAD REPORT ---
EXAM DESCRIPTION: CT - Abdomen Pelvis W Contrast - 11/29/2020 4:27 pm CLINICAL HISTORY: Abdominal pain COMPARISON: none. TECHNIQUE: Computed axial tomography of the abdomen pelvis was obtained. 100 cc Isovue-300 was admin istered intravenously. Oral contrast was not requested which limits evaluation of bowel. All CT scans are performed using dose optimization technique as appropriate and may include automated exposure control or mA/KV adjustment according to patient size. FINDINGS: Decubitus ulcer posterior lower pelvis. No abscess seen The liver, spleen, pancreas, adrenal and right kidney appear unremarkable. 2.8 centimeter left renal cyst. There is no evidence of diverticulitis. Normal appendix. Post surgical changes involve the spine. Degenerative changes Shirley catheter within the the bladder. The bladder wall is thickened. IMPRESSION: Decubitus ulcer posterior lower pelvis. No abscess seen
--- NOTE | 2020-11-29 16:57 | RAD REPORT ---
EXAM DESCRIPTION: Gloria Single View11/29/2020 3:31 pm CLINICAL HISTORY: Abdominal pain COMPARISON: none FINDINGS: The lungs appear clear of acute infiltrate. The heart is normal size IMPRESSION: No acute abnormalities displayed
[2020-11-29] MEDS: HEPARIN 5000 UNIT/ML 1 ML VIAL SQ SCH (17:00)
[2020-11-29 17:04] LABS: Urine Blood Trace-intact (Negative); Urine Glucose Negative (Negative); Urine Protein Negative (Negative); Urine Specific Gravity 1.015 (1.005-1.030); Urine pH 5.5 (5.0-7.0)
[2020-11-29 17:31] LABS: Urine Bacteria LOADED /HPF (NONE SEEN); Urine RBC <5 /HPF (NONE SEEN)
[2020-11-29] MEDS ORDERED: CEFEPIME/SWI 1gm 10 ML IVP SCH (21:00)
[2020-11-29] MEDS ORDERED: CEFEPIME 1 GM/VIAL IV SCH (21:00)
[2020-11-29] MEDS ORDERED: VANCOMYCIN 1.25 GM in NA CHLORIDE 0.9% 250 ML IVPB SCH (21:00)
[2020-11-29] MEDS ORDERED: VANCOMYCIN 1 GM/VIAL ONE (22:32)
[2020-11-29] MEDS ORDERED: NA CHLORIDE 0.9% 250 ML ONE (22:32)
[2020-11-30] MEDS: HEPARIN 5000 UNIT/ML 1 ML VIAL SQ SCH ×3 (00:26→16:42)
[2020-11-30] MEDS ORDERED: HEPARIN 5000 UNIT/ML 1 ML VIAL ONE ×3 (01:22→14:02)
[2020-11-30] MEDS ORDERED: MORPHINE 4 MG/ML SYR ONE ×3 (03:42→20:42)
[2020-11-30] MEDS: MORPHINE 4 MG/ML SYR IV PRN ×3 (03:50→20:24)
[2020-11-30 03:58] LABS: Absolute Lymphocytes (CBC) 1.8 K/uL (0.7-4.9); Basophils % 0.4 % (0-1.3); Hematocrit 34.2 % (39.6-49.0); Lymphocytes % 20.9 % (15.3-44.8); MPV 7.5 fL (7.6-11.3); RBC Red Blood Cell Count 3.77 M/uL (4.33-5.43)
[2020-11-30 04:00] LABS: Protime INR 1.22
[2020-11-30] MEDS: VANCOMYCIN 2 GM in NA CHLORIDE 0.9% 500 ML IVPB SCH ×2 (10:19→23:00)
--- NOTE | 2020-11-30 17:28 | P.PN ---
Subjective Date of Service: 11/30/20 Subjective: No new changes, No C/O voiced, Improving Patient scheduled for debridement in the morning. Continue wound healing; possible placement at nursing facility. Review of Systems 10-point ROS is otherwise unremarkable Physical Examination - Vital Signs Temperature: 97.7 F Blood Pressure: 135/50 Pulse: 84 Respirations: 18 Pulse Ox (%): 98 - Physical Exam General: Alert, In no apparent distress, Oriented x3 Cardiovascular: Regular rate/rhythm, Normal S1 S2, Systolic murmur Gastrointestinal: Normal bowel sounds, Soft and benign, Non-distended, No tenderness Musculoskeletal: No clubbing, No swelling, Tenderness (Spinal tenderness) Neurological: Sensation intact, Cranial nerves 3-12 intact - Studies Laboratory Data (last 24 hrs) 11/30/20 03:09: Triglycerides 101, Cholesterol 170, HDL Cholesterol 33 L, Cholesterol/HDL Ratio 5.15 11/30/20 03:09: PT 14.1 H, INR 1.22 11/30/20 03:09: WBC 8.60 D, Hgb 11.6 L, Hct 34.2 L, Plt Count 299 11/29/20 15:12: Sodium Cancelled, Potassium Cancelled, BUN Cancelled, Creatinine Cancelled, Glucose Cancelled Microbiology Data (last 24 hrs): 11/29/20 14:17 Wound - Coccyx Gram Stain - Final Medications List Reviewed: Yes Assessment & Plan - Problems (Diagnosis) (1) Pressure ulcer of coccygeal region, stage 3 Current Visit: No Status: Ruled-out (2) CAD (coronary artery disease) Current Visit: No Status: Acute (3) GERD (gastroesophageal reflux disease) Current Visit: No Status: Acute (4) Hx of heart artery stent Current Visit: No Status: Acute (5) Hypertension Current Visit: No Status: Acute (6) Hypothyroidism Current Visit: No Status: Acute (7) Obesity (BMI 30.0-34.9) Current Visit: No Status: Acute - Plan 1. Continue with IV antibiotic 2. Continue with local wound care 3. Wound care consultation/surgical consultation appreciated 4. Gentle IV hydration 5. Monitor CBC 6. Strict blood sugar monitoring 7. Pain control 8. GI and DVT prophylaxis Discharge Plan: Home Plan to discharge in: Greater than 2 days - Advance Directives Does patient have a Living Will: Yes Does patient have a Durable POA for Healthcare: No - Code Status/Comfort Care Code Status: Full Code Physician Review: Patient Assessed, Agree with Above Assessment and Plan Critical Care: No Time Spent Managing PTS Care (In Minutes): 45
[2020-11-30 20:29] VITALS: BMI 33.9
[2020-11-30] MEDS ORDERED: MELATONIN 5 MG TABLET PO ONE (21:51)
[2020-11-30] MEDS ORDERED: NA CHLORIDE 0.9% 500 ML ONE ×3 (22:59→23:36)
[2020-11-30] MEDS ORDERED: VANCOMYCIN 1 GM/VIAL ONE ×2 (22:59→23:05)
[2020-12-01] MEDS: HEPARIN 5000 UNIT/ML 1 ML VIAL SQ SCH ×3 (01:00→17:00)
[2020-12-01] MEDS: NA CHLORIDE 0.9% 1,000 ML IV SCH ×2 (02:00→13:05)
[2020-12-01] MEDS ORDERED: HEPARIN 5000 UNIT/ML 1 ML VIAL ONE (02:43)
[2020-12-01] MEDS ORDERED: NA CHLORIDE 0.9% 1,000 ML ONE (02:43)
[2020-12-01 06:14] LABS: Absolute Lymphocytes (CBC) 1.4 K/uL (0.7-4.9); Basophils % 0.5 % (0-1.3); Hematocrit 32.4 % (39.6-49.0); MPV 6.9 fL (7.6-11.3); RBC Red Blood Cell Count 3.52 M/uL (4.33-5.43)
[2020-12-01 06:27] LABS: BUN Blood Urea Nitrogen 15 mg/dL (7-18); Bicarbonate 31 mmol/L (21-32); Glucose Level 118 mg/dL (74-106); Magnesium 2.1 mg/dL (1.8-2.4); NT PRO-BNP 188 pg/mL (<450); Phosphorus 3.4 mg/dL (2.5-4.9); Potassium 4.1 mmol/L (3.5-5.1); Sodium Level 133 mmol/L (136-145)
[2020-12-01 07:27] LABS: Protime INR 1.16
[2020-12-01 08:12] LABS: Blood Morphology Comment NOT SEEN (NOT SEEN); Platelet Estimate ADEQ
[2020-12-01] MEDS ORDERED: ACETAMINOPHEN 500 MG TAB ONE (11:27)
[2020-12-01] MEDS: VANCOMYCIN 2 GM in NA CHLORIDE 0.9% 500 ML IVPB SCH (11:44)
[2020-12-01] MEDS: BUPIVACAINE 0.5% PF 10 ML VIAL ONE ×2 (12:19→13:20)
[2020-12-01] MEDS ORDERED: ONDANSETRON 4 MG/2 ML VIAL ONE (12:54)
[2020-12-01] MEDS ORDERED: propofoL 200 MG/20 ML VIAL IV ONE (12:54)
[2020-12-01] MEDS ORDERED: LIDOCAINE 2% MPF 5 ML VIAL ONE (12:54)
[2020-12-01] MEDS ORDERED: FENTANYL CITR 100 MCG/2 ML ONE (12:54)
--- NOTE | 2020-12-01 13:00 | CON ---
Date of Consultation: 11/30/2020 This patient was seen at the ER. History Of Present Illness: This is the case of a 75-year-old patient, known by us due to history of sacral ulcer. Unfortunately in the last few months, he lost his where she used to be very atte ntive with him. Since then, his wounds are getting worse. [facility], we noticed the area is getting worse with foul smelling and need debridement. So, t he patient was admitted to the hospital with infected ulcer and plan for surgical debridement. Past Medical History: Includes thyroid disease, high blood pressure. Please see my history and phys ical [facility] with details about the history in the past. Past Surgical History: Surgeries include cardiac stents. Peripheral vascular disease. Medications: Reviewed. Allergies: PROMETHAZINE AND PHENERGAN. Review of Systems: Denied any shortness of breath, any chest pain. Ten points otherwise unremarkable. Physical Examination: General: The patient is awake, alert. HEENT: Pupils anicteric. Chest: Clear. Abdomen: Soft and depressible. Integumentary: The patient has a stage IV necrotic and infected circular ulcer. Extremities: Good capillary refill. Laboratory Data: Previous blood work reviewed. Assessment: Necrotic infected ulcer of sacral, stage IV. Procedure is excisional debridement with b enefits, alternatives, and risks including, but not limited to infection, bleeding, damage to adjacen t structures, nonhealing wound, [place], and even . He also understands the importance of nutrition, offloading and well healed this wound before, so he is capable of doing so, but obviously we underst and the social issues that happened, although sad, we still have to get control of this wound and we are going to ask him to be a little bit more attentive of the pressure. HM/MODL Voice ID: [id number] Report ID: [id number]
--- NOTE | 2020-12-01 13:00 | P.BOP ---
Preoperative diagnosis: necrotic infected sacral decubitus ulcer Postoperative diagnosis: same Primary procedure: 1. Excisional debridement necrotic infected sacral decubitus ulcer Secondary procedure: 6 x 6 x 2.5 cm Other procedure(s): 2. Pulse lavage Estimated blood loss: < 10cc Specimen: culture, necrotic tissue Findings: see dicta Anesthesia: General Complications: None Drain(s): Other Transferred to: Recovery Room Condition: Good
[2020-12-01] MEDS ORDERED: ESMOLOL HCL 10 ML IV ONE (13:45)
[2020-12-01] MEDS: ENSURE HIGH PROTEIN 237 ML CAN PO SCH ×2 (15:45→21:00)
[2020-12-01] MEDS: JUVEN PACKET PO SCH ×2 (15:45→21:00)
--- NOTE | 2020-12-01 17:35 | RAD REPORT ---
EXAM DESCRIPTION: MRI - Sacrum/Coccyx Wo Cont - 12/01/2020 5:19 pm CLINICAL HISTORY: osteo Pain and swelling to sacrum and coccyx. COMPARISON: No comparisons FINDINGS: A large, deep posterior soft tissue ulceration is present. The ulceration is 4 cm in anter ior posterior dimension, 3.5 cm transverse dimension and approximately 3 cm depth. Irregular edematou s tissue is seen extending the from the large ulceration into the presacral space. The coccygeal segm ents demonstrate diminished T1 signal with elevated T2/IR signal present. This likely indicates mild osteomyelitis. No localized fluid collection to suggest abscess. IMPRESSION: Mild osteomyelitis of the residual coccygeal segments suspected. Large posterior soft tissue ulceration.
--- NOTE | 2020-12-01 23:52 | OP ---
Date of Procedure: 12/01/2020 Surgeon: Anthony Hunter MD Preoperative Diagnosis: Necrotic infected sacral decubitus ulcer. Postoperative Diagnosis: Necrotic infected sacral decubitus ulcer. Procedure: Excisional debridement of necrotic infected decubitus ulcer on the sacrum. It is about 6 x 6 x 2.5 cm with pulse lavage treatment. Anesthesia: General plus local. Packing: Wet-to-dry. Indications: This is a case of a 75-year-old patient with necrotic sacral wound. I fully explained the benefits, alternatives, and risks of excisional debridement, which include, but not limited to in fection, bleeding, damage to adjacent structures, anesthesia complication, nonhealing wound, [place], and even . He also understands this may not relieve his symptoms. He might need more than one surg ical intervention. He will require wound care. He also require offloading and good nutrition. Procedure In Detail: The patient was brought to the operating room, placed in supine position. Anes thesia was done without complication. The patient was placed in lateral decubitus position with prop er protection. Time-out was called. An incision was made over the area. Necrotic tissue was remove d. This goes all the way to almost sacrum. All the necrotic tissue was removed and then we proceede d to use pulse lavage to help with debridement. Area was irrigated. Hemostasis was obtained. The area was packed with wet-to-dry dressing. The patient was sent to Recovery in stable condition. LEANDRO/ALISSON Voice ID: [id number] Report ID: [id number]
--- NOTE | 2020-12-02 00:02 | P.PN ---
Date of Service: 12/01/20 Subjective Patient's clinical symptoms are improving. Patient had debridement today and wound almost to the bone per General Surgeon. MRI of the sacrum detected osteomyelitis. Patient will need PICC line and IV antibiotic therapy along with long-term wound care. At this time, were working on [facility] facility placement but may benefit from going to a long-term acute care hospital. Review of Systems 10-point ROS is otherwise unremarkable Physical Examination - Vital Signs Reviewed - Physical Exam General: Alert, In no apparent distress, Oriented x3 Cardiovascular: Regular rate/rhythm, Normal S1 S2, Systolic murmur Gastrointestinal: Normal bowel sounds, Soft and benign, Non-distended, No tenderness Musculoskeletal: No clubbing, No swelling, Tenderness (Spinal tenderness) Neurological: Sensation intact, Cranial nerves 3-12 intact Assessment & Plan - Problems (Diagnosis) (1) Pressure ulcer of coccygeal region, stage 3/osteomyelitis Current Visit: No Status: Ruled-out (2) History of COVID-19 infection Current Visit: No Status: Chronic (3) GERD (gastroesophageal reflux disease) Current Visit: No Status: Chronic (4) CAD (coronary artery disease) w/ Coronary artery stent Current Visit: No Status: Chronic (5) Hypertension Current Visit: No Status: Chronic (6) Hypothyroidism Current Visit: No Status: Chronic (7) Obesity (BMI 30.0-34.9) Current Visit: No Status: Chronic - Plan Continue with plan of care as mentioned below: 1. Continue with IV antibiotic; will arrange for PICC line placement 2. Continue with local wound care 3. Wound care consultation/surgical consultation appreciated; will also get infectious disease consultation. Patient may need long-term acute care hospital placement. Will discuss with case management 4. Gentle IV hydration 5. Monitor CBC 6. Strict blood sugar monitoring 7. Pain control 8. GI and DVT prophylaxis
[2020-12-02] MEDS ORDERED: NA CHLORIDE 0.9% 500 ML ONE (00:26)
[2020-12-02] MEDS ORDERED: VANCOMYCIN 1 GM/VIAL ONE (00:26)
[2020-12-02] MEDS ORDERED: NA CHLORIDE 0.9% 1,000 ML ONE (00:38)
[2020-12-02] MEDS: HEPARIN 5000 UNIT/ML 1 ML VIAL SQ SCH ×3 (00:41→21:00)
[2020-12-02] MEDS: NA CHLORIDE 0.9% 1,000 ML IV SCH (00:41)
[2020-12-02] MEDS: VANCOMYCIN 1.5 GM in NA CHLORIDE 0.9% 500 ML IVPB SCH ×3 (00:42→23:00)
[2020-12-02] MEDS: Levofloxacin500mg IV 500 MG/100 ML BAG IV SCH (02:38)
[2020-12-02] MEDS ORDERED: Levofloxacin500mg IV 500 MG/100 ML BAG IV ONE (02:52)
[2020-12-02 06:07] LABS: Absolute Lymphocytes (CBC) 1.4 K/uL (0.7-4.9); Basophils % 0.5 % (0-1.3); Hematocrit 29.9 % (39.6-49.0); Lymphocytes % 15.5 % (15.3-44.8); RBC Red Blood Cell Count 3.25 M/uL (4.33-5.43)
[2020-12-02 06:12] LABS: BUN Blood Urea Nitrogen 18 mg/dL (7-18); Bicarbonate 33 mmol/L (21-32); Glucose Level 110 mg/dL (74-106); NT PRO-BNP 296 pg/mL (<450); Potassium 4.4 mmol/L (3.5-5.1); Sodium Level 135 mmol/L (136-145)
--- NOTE | 2020-12-02 06:16 | P.PN ---
Subjective Date of Service: 12/02/20 Chief Complaint: Sacral wound Subjective: Other (Patient doing well. Shirley catheter in place. Has wheelchair. PICC line in place) Physical Examination - Vital Signs Temperature: 97.5 F Blood Pressure: 124/57 Pulse: 101 Respirations: 20 Pulse Ox (%): 99 - Studies Microbiology Data (last 24 hrs): 11/29/20 14:17 Wound - Coccyx Gram Stain - Final Medications List Reviewed: Yes Assessment & Plan Discharge Plan: Other (Long-term acute care facility versus shelter facility) Plan to discharge in: 72 Hours Physician Review Additional Text: CT Scan: COMPARISON: none. TECHNIQUE: Computed axial tomography of the abdomen pelvis was obtained. 100 cc Isovue-300 was administered intravenously. Oral contrast was not requested which limits evaluation of bowel. All CT scans are performed using dose optimization technique as appropriate and may include automated exposure control or mA/KV adjustment according to patient size. FINDINGS: Decubitus ulcer posterior lower pelvis. No abscess seen The liver, spleen, pancreas, adrenal and right kidney appear unremarkable. 2.8 centimeter left renal cyst. There is no evidence of diverticulitis. Normal appendix. Post surgical changes involve the spine. Degenerative changes Shirley catheter within the the bladder. The bladder wall is thickened. IMPRESSION: Decubitus ulcer posterior lower pelvis. No abscess seen MRI Sacrum: COMPARISON: No comparisons FINDINGS: A large, deep posterior soft tissue ulceration is present. The ulceration is 4 cm in anterior posterior dimension, 3.5 cm transverse dimension and approximately 3 cm depth. Irregular edematous tissue is seen extending the from the large ulceration into the presacral space. The coccygeal segments demonstrate diminished T1 signal with elevated T2/IR signal present. This likely indicates mild osteomyelitis. No localized fluid collection to suggest abscess. IMPRESSION: Mild osteomyelitis of the residual coccygeal segments suspected. Large posterior soft tissue ulceration. Surgery: Date: 12/01/20 12:59 Preoperative diagnosis: necrotic infected sacral decubitus ulcer Postoperative diagnosis: same Primary procedure: 1. Excisional debridement necrotic infected sacral decubitus ulcer Secondary procedure: 6 x 6 x 2.5 cm Other procedure(s): 2. Pulse lavage Estimated blood loss: < 10cc Specimen: culture, necrotic tissue Findings: see dicta Anesthesia: General Complications: None Drain(s): Other Physical exam: General: Alert, In no apparent distress, Oriented x3 Cardiovascular: Regular rate/rhythm, Normal S1 S2, Systolic murmur Gastrointestinal: Normal bowel sounds, Soft and benign, Non-distended, No tenderness Musculoskeletal: No clubbing, No swelling, Tenderness (Spinal tenderness), wheelchair at bedside. Neurological: Sensation intact, Cranial nerves 3-12 intact Impression: Necrotic infected sacral decubitus ulcer stage III with osteomyelitis status post excisional debridement CAD Hypertension Hyperlipidemia Hypothyroidism BPH Obesity, BMI 33.9 Plan: Necrotic infected sacral decubitus ulcer stage III with osteomyelitis status post excisional debridement: Patient status post excisional debridement. Patient doing well at this time. Pain well controlled. Will continue with medication for pain as needed. Patient on Levaquin 500 mg IV daily and vancomycin 1.5 g IV twice daily. Patient will need 6 to 8 weeks of IV antibiotic therapy. PICC line in place. Pharmacy to monitor and adjust medication. Spoke with son at length concerning plan of care. Son prefers patient to go to a long-term acute care facility but if this is not an option due to his insurance then skilled placement would be the next best option for him. Patient would benefit with long-term acute care facility placement for continued IV antibiotic therapy, aggressive wound care and hyperbarics. Will discuss with social welfare research worker. Continue to monitor the patient closely. Continue current wound care. Await recommendations by infectious disease. Physical therapy and Occupational Therapy ordered to evaluate patient. Patient with wheelchair. CAD: Continue with DVT prophylaxisheparin. Restart Plavix 75 mg daily. Hypertension: Restart hydralazine 25 mg 3 times a day and metoprolol 25 mg daily. Parameters in place. Hyperlipidemia: Restart Zetia 10 mg daily. Hypothyroidism: Restart Synthroid 175 mcg daily. BPH: Restart Flomax 0.4 mg daily Obesity, BMI 33.9: Continue to address lifestyle modification education. DVT prophylaxis: Heparin CODE STATUS: Full code Advance care [id number] minutes: Spoke with son at length. Son prefers patient to go to a long-term acute care facility versus skilled placement. Will discuss with social welfare research worker to help arrange. If denied by insurance next option would be skilled placement for continued IV antibiotic therapy, wound care. Time Spent Managing Pts Care (In Minutes): 55
--- NOTE | 2020-12-02 06:29 | RAD REPORT ---
EXAM DESCRIPTION: RAD - Chest Single View - 12/02/2020 12:44 am CLINICAL HISTORY: PICC placement Right arm COMPARISON: Chest Single View dated 11/29/2020; Chest Single View dated 11/17/2020; Chest Pa And Lat (2 Views) dated 10/19/2018; Chest Single View dated 02/05/2017 FINDINGS: No evidence of edema or pneumonia. The heart size is within normal limits.No acute osseous abnormality. No significant pleural effusions or pneumothorax. IMPRESSION: No acute cardiopulmonary disease. No significant change compared with 11/29/2020.
[2020-12-02] MEDS: JUVEN PACKET PO SCH ×2 (08:29→21:00)
[2020-12-02] MEDS: ENSURE HIGH PROTEIN 237 ML CAN PO SCH ×2 (08:29→21:00)
[2020-12-02] MEDS: COLLAGENASE 30 GM OINTMENT TOP SCH (09:12)
[2020-12-02] MEDS: METOPROLOL TAR 25 MG TAB PO SCH (09:13)
[2020-12-02] MEDS: TAMSULOSIN 0.4 MG SR CAP PO SCH (09:13)
[2020-12-02] MEDS: HYDRALAZINE HCL 25 MG TABLET PO SCH ×3 (09:14→21:00)
[2020-12-02] MEDS: CLOPIDOGREL 75 MG TABLET PO SCH (09:14)
[2020-12-02] MEDS ORDERED: HEPARIN 5000 UNIT/ML 1 ML VIAL ONE ×2 (09:29→21:12)
[2020-12-02] MEDS ORDERED: HYDRALAZINE HCL 25 MG TABLET ONE ×3 (09:30→21:12)
[2020-12-02] MEDS ORDERED: CLOPIDOGREL 75 MG TABLET ONE (09:30)
[2020-12-02] MEDS ORDERED: TAMSULOSIN 0.4 MG SR CAP ONE (09:30)
[2020-12-02] MEDS ORDERED: METOPROLOL TAR 25 MG TAB ONE (09:30)
[2020-12-02] MEDS: EZETIMIBE 10 MG TAB PO SCH (10:19)
[2020-12-02] MEDS: LEVOTHYROXINE SOD 0.05 MG TABLET PO SCH (10:19)
[2020-12-02] MEDS: CHOLESTYRAMINE/ASP 4 GM/PKT PO SCH (21:00)
[2020-12-03] MEDS ORDERED: NA CHLORIDE 0.9% 250 ML ONE (00:03)
[2020-12-03] MEDS ORDERED: VANCOMYCIN 1 GM/VIAL ONE ×2 (00:03→00:13)
[2020-12-03] MEDS ORDERED: CHOLESTYRAMINE/ASP 4 GM/PKT ONE (00:18)
[2020-12-03] MEDS ORDERED: ALTEPLASE 2 MG/VIAL IV ONE (00:59)
[2020-12-03] MEDS ORDERED: WATER FOR INJ,STERILE 10 ML ONE (01:00)
[2020-12-03] MEDS: Levofloxacin500mg IV 500 MG/100 ML BAG IV SCH (05:00)
[2020-12-03] MEDS ORDERED: Levofloxacin500mg IV 500 MG/100 ML BAG IV ONE (05:22)
--- NOTE | 2020-12-03 06:08 | P.PN ---
Subjective Date of Service: 12/03/20 Chief Complaint: Sacral wound Subjective: Doing well (No complaints) Physical Examination - Vital Signs Temperature: 97.8 F Blood Pressure: 104/73 Pulse: 103 Respirations: 19 Pulse Ox (%): 97 - Studies Microbiology Data (last 24 hrs): 11/29/20 14:17 Wound - Coccyx Gram Stain - Final 11/29/20 14:17 Wound - Coccyx Culture & Sensitivity - Final 11/29/20 17:01 Clean Catch Urine [place] Count - Final >100,000 CFU/ML. 11/29/20 17:01 Clean Catch Urine - Final Citrobacter Farmeri Gram Neg Lino Medications List Reviewed: Yes Assessment & Plan Discharge Plan: LTAC Plan to discharge in: 24 Hours Physician Review Additional Text: CT Scan: COMPARISON: none. TECHNIQUE: Computed axial tomography of the abdomen pelvis was obtained. 100 cc Isovue-300 was administered intravenously. Oral contrast was not requested which limits evaluation of bowel. All CT scans are performed using dose optimization technique as appropriate and may include automated exposure control or mA/KV adjustment according to patient size. FINDINGS: Decubitus ulcer posterior lower pelvis. No abscess seen The liver, spleen, pancreas, adrenal and right kidney appear unremarkable. 2.8 centimeter left renal cyst. There is no evidence of diverticulitis. Normal appendix. Post surgical changes involve the spine. Degenerative changes Shirley catheter within the the bladder. The bladder wall is thickened. IMPRESSION: Decubitus ulcer posterior lower pelvis. No abscess seen MRI Sacrum: COMPARISON: No comparisons FINDINGS: A large, deep posterior soft tissue ulceration is present. The ulceration is 4 cm in anterior posterior dimension, 3.5 cm transverse dimension and approximately 3 cm depth. Irregular edematous tissue is seen extending the from the large ulceration into the presacral space. The coccygeal segments demonstrate diminished T1 signal with elevated T2/IR signal present. This likely indicates mild osteomyelitis. No localized fluid collection to suggest abscess. IMPRESSION: Mild osteomyelitis of the residual coccygeal segments suspected. Large posterior soft tissue ulceration. Surgery: Date: 12/01/20 12:59 Preoperative diagnosis: necrotic infected sacral decubitus ulcer Postoperative diagnosis: same Primary procedure: 1. Excisional debridement necrotic infected sacral decubitus ulcer Secondary procedure: 6 x 6 x 2.5 cm Other procedure(s): 2. Pulse lavage Estimated blood loss: < 10cc Specimen: culture, necrotic tissue Findings: see dicta Anesthesia: General Complications: None Drain(s): Other Physical exam: General: Alert, In no apparent distress, Oriented x3 Cardiovascular: Regular rate/rhythm, Normal S1 S2, Systolic murmur Gastrointestinal: Normal bowel sounds, Soft and benign, Non-distended, No tenderness Musculoskeletal: No clubbing, No swelling, Tenderness (Spinal tenderness), wheelchair at bedside. Neurological: Sensation intact, Cranial nerves 3-12 intact Impression: Necrotic infected sacral decubitus ulcer stage III with osteomyelitis status post excisional debridement CAD Hypertension Hyperlipidemia Hypothyroidism BPH Obesity, BMI 33.9 Plan: Necrotic infected sacral decubitus ulcer stage III with osteomyelitis status post excisional debridement: Patient status post excisional debridement. Patient doing well at this time. Pain well controlled. Will continue with medication for pain as needed. Patient on Levaquin 500 mg IV daily and vancomycin 1.5 g IV twice daily. Patient will need 6 to 8 weeks of IV antibiotic therapy. PICC line in place. Pharmacy to monitor and adjust medication. Spoke with son at length yesterday concerning plan of care. Son prefers patient to go to a long-term acute care facility but if this is not an option due to his insurance then skilled placement would be the next best option for him. Patient would benefit with long-term acute care facility placement for continued IV antibiotic therapy, aggressive wound care and hyperbarics. Await approval for LTAC. Social service to continue to address. Continue current wound care-[place]. Await recommendations by infectious disease. Physical therapy and Occupational Therapy ordered to evaluate patient. Patient with wheelchair. CAD: Continue with DVT prophylaxisheparin. Continue with Plavix 75 mg daily. Hypertension: Continue with hydralazine 25 mg 3 times a day and metoprolol 25 mg daily. Parameters in place. Hyperlipidemia: Continue with Zetia 10 mg daily. Hypothyroidism: Continue with Synthroid 175 mcg daily. BPH: Continue with Flomax 0.4 mg daily Obesity, BMI 33.9: Continue to address lifestyle modification education. DVT prophylaxis: Heparin CODE STATUS: Full code Advance care minutes: Spoke with son at length yesterday. Son prefers patient to go to a long-term acute care facility versus skilled placement. If denied by insurance next option would be skilled placement for continued IV antibiotic therapy, wound care, but LTAC would be the better option. Time Spent Managing Pts Care (In Minutes): 55
[2020-12-03] MEDS ORDERED: HEPARIN 5000 UNIT/ML 1 ML VIAL ONE (07:31)
[2020-12-03] MEDS ORDERED: CLOPIDOGREL 75 MG TABLET ONE (07:31)
[2020-12-03] MEDS ORDERED: TAMSULOSIN 0.4 MG SR CAP ONE (07:31)
[2020-12-03] MEDS ORDERED: METOPROLOL TAR 25 MG TAB ONE (07:31)
[2020-12-03] MEDS ORDERED: HYDRALAZINE HCL 25 MG TABLET ONE ×2 (07:31→13:13)
[2020-12-03] MEDS: TAMSULOSIN 0.4 MG SR CAP PO SCH (08:09)
[2020-12-03] MEDS: LEVOTHYROXINE SOD 0.05 MG TABLET PO SCH (08:10)
[2020-12-03] MEDS: CLOPIDOGREL 75 MG TABLET PO SCH (08:10)
[2020-12-03] MEDS: HYDRALAZINE HCL 25 MG TABLET PO SCH ×3 (08:10→21:26)
[2020-12-03] MEDS: JUVEN PACKET PO SCH ×2 (08:11→21:28)
[2020-12-03] MEDS: HEPARIN 5000 UNIT/ML 1 ML VIAL SQ SCH ×2 (08:11→21:26)
[2020-12-03] MEDS: ENSURE HIGH PROTEIN 237 ML CAN PO SCH ×2 (08:11→21:28)
[2020-12-03] MEDS: EZETIMIBE 10 MG TAB PO SCH (08:12)
[2020-12-03] MEDS: COLLAGENASE 30 GM OINTMENT TOP SCH (08:12)
[2020-12-03] MEDS: METOPROLOL TAR 25 MG TAB PO SCH (08:23)
[2020-12-03] MEDS: VANCOMYCIN 1.5 GM in NA CHLORIDE 0.9% 500 ML IVPB SCH ×2 (11:15→23:58)
[2020-12-03] MEDS: MELATONIN 5 MG TABLET PO PRN (21:26)
[2020-12-03] MEDS: CHOLESTYRAMINE/ASP 4 GM/PKT PO SCH (23:59)
[2020-12-04] MEDS: Levofloxacin500mg IV 500 MG/100 ML BAG IV SCH ×2 (00:55→23:12)
[2020-12-04 05:29] LABS: Absolute Lymphocytes (CBC) 1.2 K/uL (0.7-4.9); Basophils % 0.4 % (0-1.3); Hematocrit 28.6 % (39.6-49.0); MPV 7.1 fL (7.6-11.3); RBC Red Blood Cell Count 3.12 M/uL (4.33-5.43)
[2020-12-04 05:44] LABS: BUN Blood Urea Nitrogen 13 mg/dL (7-18); Bicarbonate 34 mmol/L (21-32); Glucose Level 99 mg/dL (74-106); Potassium 4.1 mmol/L (3.5-5.1); Sodium Level 139 mmol/L (136-145)
[2020-12-04] MEDS: LEVOTHYROXINE SOD 0.075 MG TAB PO SCH (05:53)
[2020-12-04] MEDS: LEVOTHYROXINE SOD 0.1 MG TAB PO SCH (05:53)
[2020-12-04] MEDS: MORPHINE 2 MG/ML SYR IV PRN ×2 (05:57→22:03)
--- NOTE | 2020-12-04 06:05 | P.PN ---
Subjective Date of Service: 12/04/20 Chief Complaint: Sacral wound Subjective: Doing well Physical Examination - Vital Signs Temperature: 97.3 F Blood Pressure: 108/88 Pulse: 95 Respirations: 19 Pulse Ox (%): 93 - Studies Medications List Reviewed: Yes Assessment & Plan Discharge Plan: LTAC Plan to discharge in: 48 Hours Physician Review Additional Text: CT Scan: COMPARISON: none. TECHNIQUE: Computed axial tomography of the abdomen pelvis was obtained. 100 cc Isovue-300 was administered intravenously. Oral contrast was not requested which limits evaluation of bowel. All CT scans are performed using dose optimization technique as appropriate and may include automated exposure control or mA/KV adjustment according to patient size. FINDINGS: Decubitus ulcer posterior lower pelvis. No abscess seen The liver, spleen, pancreas, adrenal and right kidney appear unremarkable. 2.8 centimeter left renal cyst. There is no evidence of diverticulitis. Normal appendix. Post surgical changes involve the spine. Degenerative changes Shirley catheter within the the bladder. The bladder wall is thickened. IMPRESSION: Decubitus ulcer posterior lower pelvis. No abscess seen MRI Sacrum: COMPARISON: No comparisons FINDINGS: A large, deep posterior soft tissue ulceration is present. The ulceration is 4 cm in anterior posterior dimension, 3.5 cm transverse dimension and approximately 3 cm depth. Irregular edematous tissue is seen extending the from the large ulceration into the presacral space. The coccygeal segments demonstrate diminished T1 signal with elevated T2/IR signal present. This likely indicates mild osteomyelitis. No localized fluid collection to suggest abscess. IMPRESSION: Mild osteomyelitis of the residual coccygeal segments suspected. Large posterior soft tissue ulceration. Surgery: Date: 12/01/20 12:59 Preoperative diagnosis: necrotic infected sacral decubitus ulcer Postoperative diagnosis: same Primary procedure: 1. Excisional debridement necrotic infected sacral decubitus ulcer Secondary procedure: 6 x 6 x 2.5 cm Other procedure(s): 2. Pulse lavage Estimated blood loss: < 10cc Specimen: culture, necrotic tissue Findings: see dicta Anesthesia: General Complications: None Drain(s): Other Physical exam: General: Alert, In no apparent distress, Oriented x3 Cardiovascular: Regular rate/rhythm, Normal S1 S2, Systolic murmur Gastrointestinal: Normal bowel sounds, Soft and benign, Non-distended, No tenderness Musculoskeletal: No clubbing, No swelling, Tenderness (Spinal tenderness), wheelchair at bedside. Neurological: Sensation intact, Cranial nerves 3-12 intact Impression: Necrotic infected sacral decubitus ulcer stage III with osteomyelitis status post excisional debridement, wound culture positive for Enterobacter and Pseudomonas CAD Hypertension Hyperlipidemia Hypothyroidism BPH Obesity, BMI 33.9 Plan: Necrotic infected sacral decubitus ulcer stage III with osteomyelitis status post excisional debridement, wound culture positive for Enterobacter and Pseudomonas: Patient status post excisional debridement. Patient doing well at this time. Pain well controlled. Sensitivities reviewed. Continue with IV Levaquin 500 mg daily and vancomycin. Patient will need 6 to 8 weeks of IV antibiotic therapy. PICC line in place. Pharmacy to monitor and adjust medication. With son at length concerning patient. Son agrees with long-term acute care facility placement to continue aggressive wound care, IV antibiotic therapy and hyperbarics. If this option fails son would agree with skilled placement. Will discuss with infectious disease. Continue with current wound care instructions by infectious disease. Case discussed at length with case management. She is wheelchair-bound. CAD: Continue with DVT prophylaxisheparin. Continue with Plavix 75 mg daily. Hypertension: Continue with hydralazine 25 mg 3 times a day and metoprolol 25 mg daily. Parameters in place. Hyperlipidemia: Continue with Zetia 10 mg daily. Hypothyroidism: Continue with Synthroid 175 mcg daily. BPH: Continue with Flomax 0.4 mg daily Obesity, BMI 33.9: Continue to address lifestyle modification education. DVT prophylaxis: Heparin CODE STATUS: Full code Advance care [id number] minutes: Spoke with son with plan of care. Son prefers to go to a long-term acute care facility to continue therapy. If this option is denied then will proceed with skilled placement. Time Spent Managing Pts Care (In Minutes): 55
[2020-12-04] MEDS: HYDRALAZINE HCL 25 MG TABLET PO SCH ×3 (09:00→21:35)
[2020-12-04] MEDS: METOPROLOL TAR 25 MG TAB PO SCH (09:00)
[2020-12-04] MEDS: TAMSULOSIN 0.4 MG SR CAP PO SCH (09:27)
[2020-12-04] MEDS: CLOPIDOGREL 75 MG TABLET PO SCH (09:29)
[2020-12-04] MEDS: EZETIMIBE 10 MG TAB PO SCH (09:29)
[2020-12-04] MEDS: HEPARIN 5000 UNIT/ML 1 ML VIAL SQ SCH ×2 (09:30→21:36)
[2020-12-04] MEDS: JUVEN PACKET PO SCH ×2 (09:31→21:35)
[2020-12-04] MEDS: COLLAGENASE 30 GM OINTMENT TOP SCH (09:31)
[2020-12-04] MEDS: ENSURE HIGH PROTEIN 237 ML CAN PO SCH ×2 (09:31→21:35)
--- NOTE | 2020-12-04 09:52 | P.CNS ---
Date of Consult: 12/04/20 Chief Complaint: Sacral wound History of Present Illness: Patient is a 75-year-old male with a past medical history of hypothyroidism, GERD, hypertension, obesity, CAD, neuropathy who presents with a stage IV coccyx decubitus ulcer. Patient states that the ulcer has been present since August 29, 2020. Patient states that he [facility] up with [facility] Patient also reported low-grade fever, coccyx pain, and weakness. MRI confirmed osteomyelitis of coccyx area. Patient underwent a surgical excision debridement on 12/01. Patient empirically started on vancomycin and Levaquin, PICC line placed. Patient currently reports pain/tenderness to sacral coccyx area of. Patient denies nausea, vomiting, diarrhea, shortness breath, chest pain. Allergies promethazine HCl [From Phenergan] Adverse Reaction (Verified 07/04/15 05:05) "makes me go crazy" Home Medications: Clopidogrel Bisulfate [Plavix*] 75 mg PO DAILY 07/04/15 Ezetimibe [Zetia*] 10 mg PO DAILY 07/04/15 Furosemide [Lasix] 40 mg PO BID 09/07/19 Levothyroxine Sodium [Synthroid] 175 mcg PO DAILY 09/07/19 Cholestyramine/Aspartame [Cholestyramine Light Packet] 2 packet PO BEDTIME 11/30/20 Famotidine 1 tab PO BEDTIME 11/30/20 Hydralazine [Apresoline*] 1 tab PO TID 11/30/20 Metoprolol Tartrate 1 tab PO DAILY 11/30/20 Tamsulosin [Flomax*] 1 cap PO DAILY 11/30/20 - Past Medical/Surgical History Diabetic: No -: Hypothyroidism -: GERD -: HTN -: Neuropathy -: Obesity -: Claustrophobia -: CAD -: back surgery -: bilateral knee surgery -: endartarectomy -: heart stents x7 -: bladder sx - Family History Mother Medical History: Heart disease, Diabetes Father Medical History: Hypertension - Social History Alcohol use: No CD- Drugs: No Caffeine use: Yes Place of Residence: Home Review of Systems 10-point ROS is otherwise unremarkable Physical Examination Temp Pulse Resp BP Pulse Ox 97.6 F 85 20 104/51 L 98 12/04/20 08:00 12/04/20 09:00 12/04/20 08:00 12/04/20 09:00 12/04/20 08:00 General: Alert, In no apparent distress, Oriented x3, Obese HEENT: Atraumatic, Normocephalic Neck: Supple, 2+ carotid pulse no bruit Respiratory: Clear to auscultation bilaterally, Normal air movement Cardiovascular: Normal pulses, Regular rate/rhythm Capillary refill: <2 Seconds Gastrointestinal: Normal bowel sounds, Non-distended Musculoskeletal: No clubbing, No contractures Integumentary: Pressure ulcer (Stage IV coccyx ulcer: Luisa wound tissue red/purple discoloration. No slough noted to base of wound, no exudate) Laboratory Last Values WBC 8.60 K/uL (4.3-10.9) D 11/30/20 03:09 RBC 3.77 M/uL (4.33-5.43) L 11/30/20 03:09 Hgb 11.6 g/dL (13.6-17.9) L 11/30/20 03:09 Hct 34.2 % (39.6-49.0) L 11/30/20 03:09 MCV 90.7 fL (80-100) 11/30/20 03:09 MCH 30.9 pg (27.0-35.0) 11/30/20 03:09 MCHC 34.1 g/dL (32.0-36.0) 11/30/20 03:09 RDW 14.0 % (12.1-15.2) 11/30/20 03:09 Plt Count 299 K/uL (152-406) 11/30/20 03:09 MPV 7.5 fL (7.6-11.3) L 11/30/20 03:09 Neutrophils % 59.8 % (41.7-73.7) 11/30/20 03:09 Lymphocytes % 20.9 % (15.3-44.8) 11/30/20 03:09 Monocytes % 14.6 % (3.3-12.3) H 11/30/20 03:09 Eosinophils % 4.3 % (0-4.4) 11/30/20 03:09 Basophils % 0.4 % (0-1.3) 11/30/20 03:09 Absolute Neutrophils 5.2 K/uL (1.8-8.0) 11/30/20 03:09 Absolute Lymphocytes 1.8 K/uL (0.7-4.9) 11/30/20 03:09 Absolute Monocytes 1.3 K/uL (0.1-1.3) 11/30/20 03:09 Absolute Eosinophils 0.4 K/uL (0-0.5) 11/30/20 03:09 Absolute Basophils 0.0 K/uL (0-0.5) 11/30/20 03:09 PT 14.1 SECONDS (9.5-12.5) H 11/30/20 03:09 INR 1.22 11/30/20 03:09 Sodium 134 mmol/L (136-145) L 11/29/20 15:12 Sodium Cancelled 11/29/20 15:12 Potassium 4.0 mmol/L (3.5-5.1) 11/29/20 15:12 Potassium Cancelled 11/29/20 15:12 Chloride 94 mmol/L (98-107) L 11/29/20 15:12 Chloride Cancelled 11/29/20 15:12 Carbon Dioxide 35 mmol/L (21-32) H 11/29/20 15:12 Carbon Dioxide Cancelled 11/29/20 15:12 BUN 22 mg/dL (7-18) H 11/29/20 15:12 BUN Cancelled 11/29/20 15:12 Creatinine 0.80 mg/dL (0.55-1.3) 11/29/20 15:12 Creatinine Cancelled 11/29/20 15:12 Estimated GFR > 90 mL/min (=/>90) 11/29/20 15:12 Estimated GFR Cancelled 11/29/20 15:12 Glucose 106 mg/dL (74-106) 11/29/20 15:12 Glucose Cancelled 11/29/20 15:12 Hemoglobin A1c 5.8 % (4.2-6.3) 11/29/20 15:12 Lactic Acid 1.2 mmol/L (0.4-2.0) 11/29/20 15:11 Calcium 9.6 mg/dL (8.5-10.1) 11/29/20 15:12 Calcium Cancelled 11/29/20 15:12 Magnesium 2.3 mg/dL (1.8-2.4) 11/29/20 15:12 Total Bilirubin 0.6 mg/dL (0.2-1.0) 11/29/20 15:12 Direct Bilirubin 0.2 mg/dL (0-0.2) 11/29/20 15:12 AST 17 U/L (15-37) 11/29/20 15:12 ALT 22 U/L (12-78) 11/29/20 15:12 Alkaline Phosphatase 72 U/L (45-117) 11/29/20 15:12 Rapid Troponin I < 0.02 ng/mL (0.0-0.045) 11/29/20 15:12 NT-Pro-B Natriuret Pep 107 pg/mL (<450) 11/29/20 15:12 Serum Total Protein 8.4 g/dL (6.4-8.2) H 11/29/20 15:12 Albumin 3.0 g/dL (3.4-5.0) L 11/29/20 15:12 Globulin 5.4 g/dL (2.3-3.5) H 11/29/20 15:12 Albumin/Globulin Ratio 0.6 (1.1-1.8) L 11/29/20 15:12 Triglycerides 101 mg/dL (<150) 11/30/20 03:09 Cholesterol 170 mg/dL (<200) 11/30/20 03:09 LDL Cholesterol, Calc 117 (<130) 11/30/20 03:09 HDL Cholesterol 33 mg/dL (40-60) L 11/30/20 03:09 Cholesterol/HDL Ratio 5.15 11/30/20 03:09 Procalcitonin < 0.05 ng/mL (<0.050) 11/29/20 15:12 Urine pH 5.5 (5.0-7.0) 11/29/20 17:02 Ur Specific Man[place] 1.015 (1.005-1.030) 11/29/20 17:02 Glucose (UA)(Auto) Negative (Negative) 11/29/20 17:02 Urine Ketones Negative (Negative) 11/29/20 17:02 Urine Blood Trace-intact (Negative) H 11/29/20 17:02 Urine Nitrite Positive (Negative) H 11/29/20 17:02 Ur Leukocyte Esterase 2+ (Negative) H 11/29/20 17:02 Urine RBC <5 /HPF (NONE SEEN) 11/29/20 17:01 Urine WBC Tntc /HPF (<5) H 11/29/20 17:01 Ur Squamous Epith Cells <5 /HPF (NONE SEEN) 11/29/20 17:01 Urine Bacteria Loaded /HPF (NONE SEEN) H 11/29/20 17:01 Urine Culture Reflexed Reflexed 11/29/20 17:01 Urine Total Protein Negative (Negative) 11/29/20 17:02 Vancomycin Trough < 0.8 ug/mL (5.0-20.0) L 11/29/20 15:12 SARS-CoV-2 RNA (RT-PCR) Negative (NEGATIVE) 11/30/20 11:45 Conclusions/Impression: Antibiotics: Vancomycin Start: 12/01 stop: -- Levaquin Start: 12/02 stop: -- Assessment: 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 Patient underwent surgical debridement on 12/01. Wound care orders change from Santyl to Medihoney with alginate due to no necrotic/slough tissue being present on base of wound. Continue to offload wound and avoid direct pressure. Reposition patient in bed every 2 hr during waking hr. Recommend air mattress. -blood cultures: Performed on 11/29 no growth to date. Wound culture taken on 12/01: Growing Enterobacter colace and Pseudomonas aeruginosa. Urine culture obtained on 11/29: Growing Citrobacter farmeri. All cultures show susceptibility to Levaquin. -antibiotics: Continue on dual therapy IV antibiotics at this time. Continue to monitor renal function. -patient started on vitamins promote wound healing including vitamin-C and zinc -protein caloric malnutrition: Recommend supplemental Ensure protein drinks -recommend transferred to [facility] to continue on wound care treatment sick and utilize hyperbaric oxygen treatment. -medical management per primary team--continue monitor CBC and BMP -continue monitor for signs infection Plan of care discussed with Dr. Ospina Thank you for consultation
[2020-12-04] MEDS: VANCOMYCIN 1.5 GM in NA CHLORIDE 0.9% 500 ML IVPB SCH ×2 (10:00→22:45)
[2020-12-04] MEDS: CHOLESTYRAMINE/ASP 4 GM/PKT PO SCH (21:35)
[2020-12-04] MEDS: LACTOBACILLUS/ACIDOPHILUS TAB PO SCH (21:35)
[2020-12-04] MEDS ORDERED: NA CHLORIDE 0.9% 250 ML ONE (22:23)
[2020-12-05 05:12] LABS: Absolute Lymphocytes (CBC) 1.6 K/uL (0.7-4.9); Basophils % 1.2 % (0-1.3); Hematocrit 28.6 % (39.6-49.0); Lymphocytes % 28.2 % (15.3-44.8); MPV 6.6 fL (7.6-11.3); RBC Red Blood Cell Count 3.14 M/uL (4.33-5.43)
[2020-12-05 05:29] LABS: BUN Blood Urea Nitrogen 13 mg/dL (7-18); Bicarbonate 33 mmol/L (21-32); Glucose Level 86 mg/dL (74-106); Potassium 3.8 mmol/L (3.5-5.1); Sodium Level 138 mmol/L (136-145)
[2020-12-05] MEDS: LEVOTHYROXINE SOD 0.075 MG TAB PO SCH (05:49)
[2020-12-05] MEDS: LEVOTHYROXINE SOD 0.1 MG TAB PO SCH (05:49)
[2020-12-05] MEDS: MORPHINE 2 MG/ML SYR IV PRN ×2 (05:55→20:39)
--- NOTE | 2020-12-05 06:08 | P.PN ---
Subjective Date of Service: 12/05/20 Chief Complaint: Sacral wound Subjective: Doing well Physical Examination - Vital Signs Temperature: 97.6 F Blood Pressure: 141/66 Pulse: 89 Respirations: 18 Pulse Ox (%): 95 - Studies Microbiology Data (last 24 hrs): 11/29/20 15:12 Blood - Blood Aerobic Blood Culture - Final No growth in 5 days. 11/29/20 15:12 Blood - Blood Anaerobic Blood Culture - Final No growth in 5 days. 11/29/20 15:03 Blood - Blood Aerobic Blood Culture - Final No growth in 5 days. 11/29/20 15:03 Blood - Blood Anaerobic Blood Culture - Final No growth in 5 days. Medications List Reviewed: Yes Assessment & Plan Discharge Plan: LTAC Plan to discharge in: 24 Hours Physician Review Additional Text: CT Scan: COMPARISON: none. TECHNIQUE: Computed axial tomography of the abdomen pelvis was obtained. 100 cc Isovue-300 was administered intravenously. Oral contrast was not requested which limits evaluation of bowel. All CT scans are performed using dose optimization technique as appropriate and may include automated exposure control or mA/KV adjustment according to patient size. FINDINGS: Decubitus ulcer posterior lower pelvis. No abscess seen The liver, spleen, pancreas, adrenal and right kidney appear unremarkable. 2.8 centimeter left renal cyst. There is no evidence of diverticulitis. Normal appendix. Post surgical changes involve the spine. Degenerative changes Shirley catheter within the the bladder. The bladder wall is thickened. IMPRESSION: Decubitus ulcer posterior lower pelvis. No abscess seen MRI Sacrum: COMPARISON: No comparisons FINDINGS: A large, deep posterior soft tissue ulceration is present. The ulceration is 4 cm in anterior posterior dimension, 3.5 cm transverse dimension and approximately 3 cm depth. Irregular edematous tissue is seen extending the from the large ulceration into the presacral space. The coccygeal segments demonstrate diminished T1 signal with elevated T2/IR signal present. This likely indicates mild osteomyelitis. No localized fluid collection to suggest abscess. IMPRESSION: Mild osteomyelitis of the residual coccygeal segments suspected. Large posterior soft tissue ulceration. Surgery: Date: 12/01/20 12:59 Preoperative diagnosis: necrotic infected sacral decubitus ulcer Postoperative diagnosis: same Primary procedure: 1. Excisional debridement necrotic infected sacral decubitus ulcer Secondary procedure: 6 x 6 x 2.5 cm Other procedure(s): 2. Pulse lavage Estimated blood loss: < 10cc Specimen: culture, necrotic tissue Findings: see dicta Anesthesia: General Complications: None Drain(s): Other Physical exam: General: Alert, In no apparent distress, Oriented x3 Cardiovascular: Regular rate/rhythm, Normal S1 S2, Systolic murmur Gastrointestinal: Normal bowel sounds, Soft and benign, Non-distended, No tenderness Musculoskeletal: No clubbing, No swelling, Tenderness (Spinal tenderness), wheelchair at bedside. 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 Patient status post excisional debridement. Patient doing well at this time. Pain well controlled. Sensitivities reviewed. Continue with IV Levaquin 500 mg daily and vancomycin. Patient will need 6 to 8 weeks of IV antibiotic therapy. PICC line in place. Pharmacy to monitor and adjust medication. With son at length concerning patient. Son agrees with long-term acute care facility placement to continue aggressive wound care, IV antibiotic therapy and hyperbarics. If this option fails son would agree with skilled placement. Agree with infectious disease. Continue with current wound care instructions by infectious disease. Case discussed at length with case management. She is wheelchair-bound. CAD: Continue with DVT prophylaxisheparin. Continue with Plavix 75 mg daily. Hypertension: Continue with hydralazine 25 mg 3 times a day and metoprolol 25 mg daily. Parameters in place. Hyperlipidemia: Continue with Zetia 10 mg daily. Hypothyroidism: Continue with Synthroid 175 mcg daily. BPH: Continue with Flomax 0.4 mg daily Obesity, BMI 33.9: Continue to address lifestyle modification education. DVT prophylaxis: Heparin CODE STATUS: Full code Advance care minutes: Spoke with son with plan of care. Son prefers to go to a long-term acute care facility to continue therapy. Continue to pursue LTAC. If this option is denied then will proceed with skilled placement. Time Spent Managing Pts Care (In Minutes): 55
[2020-12-05] MEDS ORDERED: POTASSIUM CL SA 10 MEQ TAB PO ONE (09:00)
[2020-12-05] MEDS: LACTOBACILLUS/ACIDOPHILUS TAB PO SCH ×2 (10:23→20:42)
[2020-12-05] MEDS: HYDRALAZINE HCL 25 MG TABLET PO SCH ×3 (10:23→20:41)
[2020-12-05] MEDS: ASCORBIC ACID 500 MG TABLET PO SCH (10:24)
[2020-12-05] MEDS: METOPROLOL TAR 25 MG TAB PO SCH (10:24)
[2020-12-05] MEDS: ZINC SULFATE 220 MG CAP PO SCH (10:24)
[2020-12-05] MEDS: CLOPIDOGREL 75 MG TABLET PO SCH (10:25)
[2020-12-05] MEDS: TAMSULOSIN 0.4 MG SR CAP PO SCH (10:25)
[2020-12-05] MEDS: EZETIMIBE 10 MG TAB PO SCH (10:25)
[2020-12-05] MEDS: HEPARIN 5000 UNIT/ML 1 ML VIAL SQ SCH ×2 (10:25→20:40)
[2020-12-05] MEDS: ENSURE HIGH PROTEIN 237 ML CAN PO SCH ×2 (10:26→20:43)
[2020-12-05] MEDS: VANCOMYCIN 2 GM in NA CHLORIDE 0.9% 500 ML IVPB SCH (10:27)
[2020-12-05] MEDS: JUVEN PACKET PO SCH ×2 (10:27→20:43)
[2020-12-05] MEDS: COLLAGENASE 30 GM OINTMENT TOP SCH (10:28)
--- NOTE | 2020-12-05 11:02 | P.PN ---
Subjective Date of Service: 12/05/20 Chief Complaint: Sacral wound Patient seen examined at bedside, no acute complaints. Denies nausea, vomiting, diarrhea. Awaiting insurance approval for transfer to [facility] Review of Systems 10-point ROS is otherwise unremarkable Physical Examination - Vital Signs Temperature: 97.1 F Blood Pressure: 140/73 Pulse: 98 Respirations: 18 Pulse Ox (%): 97 - Studies Laboratory Last Values WBC 8.60 K/uL (4.3-10.9) D 11/30/20 03:09 RBC 3.77 M/uL (4.33-5.43) L 11/30/20 03:09 Hgb 11.6 g/dL (13.6-17.9) L 11/30/20 03:09 Hct 34.2 % (39.6-49.0) L 11/30/20 03:09 MCV 90.7 fL (80-100) 11/30/20 03:09 MCH 30.9 pg (27.0-35.0) 11/30/20 03:09 MCHC 34.1 g/dL (32.0-36.0) 11/30/20 03:09 RDW 14.0 % (12.1-15.2) 11/30/20 03:09 Plt Count 299 K/uL (152-406) 11/30/20 03:09 MPV 7.5 fL (7.6-11.3) L 11/30/20 03:09 Neutrophils % 59.8 % (41.7-73.7) 11/30/20 03:09 Lymphocytes % 20.9 % (15.3-44.8) 11/30/20 03:09 Monocytes % 14.6 % (3.3-12.3) H 11/30/20 03:09 Eosinophils % 4.3 % (0-4.4) 11/30/20 03:09 Basophils % 0.4 % (0-1.3) 11/30/20 03:09 Absolute Neutrophils 5.2 K/uL (1.8-8.0) 11/30/20 03:09 Absolute Lymphocytes 1.8 K/uL (0.7-4.9) 11/30/20 03:09 Absolute Monocytes 1.3 K/uL (0.1-1.3) 11/30/20 03:09 Absolute Eosinophils 0.4 K/uL (0-0.5) 11/30/20 03:09 Absolute Basophils 0.0 K/uL (0-0.5) 11/30/20 03:09 PT 14.1 SECONDS (9.5-12.5) H 11/30/20 03:09 INR 1.22 11/30/20 03:09 Sodium 134 mmol/L (136-145) L 11/29/20 15:12 Sodium Cancelled 11/29/20 15:12 Potassium 4.0 mmol/L (3.5-5.1) 11/29/20 15:12 Potassium Cancelled 11/29/20 15:12 Chloride 94 mmol/L (98-107) L 11/29/20 15:12 Chloride Cancelled 11/29/20 15:12 Carbon Dioxide 35 mmol/L (21-32) H 11/29/20 15:12 Carbon Dioxide Cancelled 11/29/20 15:12 BUN 22 mg/dL (7-18) H 11/29/20 15:12 BUN Cancelled 11/29/20 15:12 Creatinine 0.80 mg/dL (0.55-1.3) 11/29/20 15:12 Creatinine Cancelled 11/29/20 15:12 Estimated GFR > 90 mL/min (=/>90) 11/29/20 15:12 Estimated GFR Cancelled 11/29/20 15:12 Glucose 106 mg/dL (74-106) 11/29/20 15:12 Glucose Cancelled 11/29/20 15:12 Hemoglobin A1c 5.8 % (4.2-6.3) 11/29/20 15:12 Lactic Acid 1.2 mmol/L (0.4-2.0) 11/29/20 15:11 Calcium 9.6 mg/dL (8.5-10.1) 11/29/20 15:12 Calcium Cancelled 11/29/20 15:12 Magnesium 2.3 mg/dL (1.8-2.4) 11/29/20 15:12 Total Bilirubin 0.6 mg/dL (0.2-1.0) 11/29/20 15:12 Direct Bilirubin 0.2 mg/dL (0-0.2) 11/29/20 15:12 AST 17 U/L (15-37) 11/29/20 15:12 ALT 22 U/L (12-78) 11/29/20 15:12 Alkaline Phosphatase 72 U/L (45-117) 11/29/20 15:12 Rapid Troponin I < 0.02 ng/mL (0.0-0.045) 11/29/20 15:12 NT-Pro-B Natriuret Pep 107 pg/mL (<450) 11/29/20 15:12 Serum Total Protein 8.4 g/dL (6.4-8.2) H 11/29/20 15:12 Albumin 3.0 g/dL (3.4-5.0) L 11/29/20 15:12 Globulin 5.4 g/dL (2.3-3.5) H 11/29/20 15:12 Albumin/Globulin Ratio 0.6 (1.1-1.8) L 11/29/20 15:12 Triglycerides 101 mg/dL (<150) 11/30/20 03:09 Cholesterol 170 mg/dL (<200) 11/30/20 03:09 LDL Cholesterol, Calc 117 (<130) 11/30/20 03:09 HDL Cholesterol 33 mg/dL (40-60) L 11/30/20 03:09 Cholesterol/HDL Ratio 5.15 11/30/20 03:09 Procalcitonin < 0.05 ng/mL (<0.050) 11/29/20 15:12 Urine pH 5.5 (5.0-7.0) 11/29/20 17:02 Ur Specific [place] 1.015 (1.005-1.030) 11/29/20 17:02 Glucose (UA)(Auto) Negative (Negative) 11/29/20 17:02 Urine Ketones Negative (Negative) 11/29/20 17:02 Urine Blood Trace-intact (Negative) H 11/29/20 17:02 Urine Nitrite Positive (Negative) H 11/29/20 17:02 Ur Leukocyte Esterase 2+ (Negative) H 11/29/20 17:02 Urine RBC <5 /HPF (NONE SEEN) 11/29/20 17:01 Urine WBC Tntc /HPF (<5) H 11/29/20 17:01 Ur Squamous Epith Cells <5 /HPF (NONE SEEN) 11/29/20 17:01 Urine Bacteria Loaded /HPF (NONE SEEN) H 11/29/20 17:01 Urine Culture Reflexed Reflexed 11/29/20 17:01 Urine Total Protein Negative (Negative) 11/29/20 17:02 Vancomycin Trough < 0.8 ug/mL (5.0-20.0) L 11/29/20 15:12 SARS-CoV-2 RNA (RT-PCR) Negative (NEGATIVE) 11/30/20 11:45 Microbiology Data (last 24 hrs): 11/29/20 15:12 Blood - Blood Aerobic Blood Culture - Final No growth in 5 days. 11/29/20 15:12 Blood - Blood Anaerobic Blood Culture - Final No growth in 5 days. 11/29/20 15:03 Blood - Blood Aerobic Blood Culture - Final No growth in 5 days. 11/29/20 15:03 Blood - Blood Anaerobic Blood Culture - Final No growth in 5 days. Medications List Reviewed: Yes Assessment And Plan - Plan Physical Exam: General: Alert, In no apparent distress, Oriented x3, Obese HEENT: Atraumatic, Normocephalic Neck: Supple, 2+ carotid pulse no bruit Respiratory: Clear to auscultation bilaterally, Normal air movement Cardiovascular: Normal pulses, Regular rate/rhythm Capillary refill: <2 Seconds Gastrointestinal: Normal bowel sounds, Non-distended Musculoskeletal: No clubbing, No contractures Integumentary: Pressure ulcer (Stage IV coccyx ulcer: Luisa wound tissue red/purple discoloration. 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 Patient underwent surgical debridement on 12/01. Wound care orders change from Santyl to Medihoney with alginate due to no necrotic/slough tissue being present on base of wound. Pack with alginate. Continue to offload wound and avoid direct pressure. Reposition patient in bed every 2 hr during waking hr. Recommend air mattress. -blood cultures: Performed on 11/29 no growth to date. Wound culture taken on 12/01: Growing Enterobacter colace and Pseudomonas aeruginosa. Urine culture obtained on 11/29: Growing Citrobacter farmeri. All cultures show susceptibility to Levaquin. Started on probiotic -antibiotics: Continue on dual therapy IV antibiotics at this time. Continue to monitor renal function. -patient started on vitamins promote wound healing including vitamin-C and zinc -protein caloric malnutrition: Recommend supplemental Ensure protein drinks -recommend transferred to [facility] to continue on wound care treatment sick and utilize hyperbaric oxygen treatment--pending insurance approval. -medical management per primary team--continue monitor CBC and BMP -continue monitor for signs infection Plan of care discussed with Dr. Ospina Thank you for consultation Physician Review: Patient Assessed, Agree with Above Assessment and Plan Physician Review Additional Text: CT Scan: COMPARISON: none. TECHNIQUE: Computed axial tomography of the abdomen pelvis was obtained. 100 cc Isovue-300 was administered intravenously. Oral contrast was not requested which limits evaluation of bowel. All CT scans are performed using dose optimization technique as appropriate and may include automated exposure control or mA/KV adjustment according to patient size. FINDINGS: Decubitus ulcer posterior lower pelvis. No abscess seen The liver, spleen, pancreas, adrenal and right kidney appear unremarkable. 2.8 centimeter left renal cyst. There is no evidence of diverticulitis. Normal appendix. Post surgical changes involve the spine. Degenerative changes Shirley catheter within the the bladder. The bladder wall is thickened. IMPRESSION: Decubitus ulcer posterior lower pelvis. No abscess seen MRI Sacrum: COMPARISON: No comparisons FINDINGS: A large, deep posterior soft tissue ulceration is present. The ulceration is 4 cm in anterior posterior dimension, 3.5 cm transverse dimension and approximately 3 cm depth. Irregular edematous tissue is seen extending the from the large ulceration into the presacral space. The coccygeal segments demonstrate diminished T1 signal with elevated T2/IR signal present. This likely indicates mild osteomyelitis. No localized fluid collection to suggest abscess. IMPRESSION: Mild osteomyelitis of the residual coccygeal segments suspected. Large posterior soft tissue ulceration. Surgery: Date: 12/01/20 12:59 Preoperative diagnosis: necrotic infected sacral decubitus ulcer Postoperative diagnosis: same Primary procedure: 1. Excisional debridement necrotic infected sacral decubitus ulcer Secondary procedure: 6 x 6 x 2.5 cm Other procedure(s): 2. Pulse lavage Estimated blood loss: < 10cc Specimen: culture, necrotic tissue Findings: see dicta Anesthesia: General Complications: None Drain(s): Other Physical exam: General: Alert, In no apparent distress, Oriented x3 Cardiovascular: Regular rate/rhythm, Normal S1 S2, Systolic murmur Gastrointestinal: Normal bowel sounds, Soft and benign, Non-distended, No tenderness Musculoskeletal: No clubbing, No swelling, Tenderness (Spinal tenderness), wheelchair at bedside. Neurological: Sensation intact, Cranial nerves 3-12 intact Impression: Necrotic infected sacral decubitus ulcer stage III with osteomyelitis status post excisional debridement, wound culture positive for Enterobacter and Pseudomonas CAD Hypertension Hyperlipidemia Hypothyroidism BPH Obesity, BMI 33.9 Plan: Necrotic infected sacral decubitus ulcer stage III with osteomyelitis status post excisional debridement, wound culture positive for Enterobacter and Pseudomonas: Patient status post excisional debridement. Patient doing well at this time. Pain well controlled. Sensitivities reviewed. Continue with IV Levaquin 500 mg daily and vancomycin. Patient will need 6 to 8 weeks of IV antibiotic therapy. PICC line in place. Pharmacy to monitor and adjust medication. With son at length concerning patient. Son agrees with long-term acute care facility placement to continue aggressive wound care, IV antibiotic therapy and hyperbarics. If this option fails son would agree with skilled placement. Will discuss with infectious disease. Continue with current wound care instructions by infectious disease. Case discussed at length with case cosme cadet. She is wheelchair-bound. CAD: Continue with DVT prophylaxisheparin. Continue with Plavix 75 mg daily. Hypertension: Continue with hydralazine 25 mg 3 times a day and metoprolol 25 mg daily. Parameters in place. Hyperlipidemia: Continue with Zetia 10 mg daily. Hypothyroidism: Continue with Synthroid 175 mcg daily. BPH: Continue with Flomax 0.4 mg daily Obesity, BMI 33.9: Continue to address lifestyle modification education. DVT prophylaxis: Heparin CODE STATUS: Full code [facility] care [id number] minutes: Spoke with son with plan of care. Son prefers to go to a long-term acute care facility to continue therapy. If this option is denied then will proceed with skilled placement.
[2020-12-05] MEDS: MELATONIN 5 MG TABLET PO PRN (20:40)
[2020-12-05] MEDS: CHOLESTYRAMINE/ASP 4 GM/PKT PO SCH (20:41)
[2020-12-06] MEDS: Levofloxacin500mg IV 500 MG/100 ML BAG IV SCH (00:40)
[2020-12-06] MEDS: LEVOTHYROXINE SOD 0.075 MG TAB PO SCH (05:32)
[2020-12-06] MEDS: LEVOTHYROXINE SOD 0.1 MG TAB PO SCH (05:32)
[2020-12-06 06:00] LABS: Absolute Lymphocytes (CBC) 1.6 K/uL (0.7-4.9); Basophils % 0.7 % (0-1.3); Hematocrit 27.6 % (39.6-49.0); Lymphocytes % 27.1 % (15.3-44.8); MPV 6.7 fL (7.6-11.3); RBC Red Blood Cell Count 3.02 M/uL (4.33-5.43)
[2020-12-06 06:07] LABS: BUN Blood Urea Nitrogen 16 mg/dL (7-18); Bicarbonate 34 mmol/L (21-32); Glucose Level 97 mg/dL (74-106); Magnesium 1.9 mg/dL (1.8-2.4); Potassium 4.2 mmol/L (3.5-5.1); Sodium Level 138 mmol/L (136-145)
--- NOTE | 2020-12-06 06:07 | P.PN ---
Subjective Date of Service: 12/06/20 Chief Complaint: Sacral wound Subjective: Doing well Physical Examination - Vital Signs Temperature: 97.3 F Blood Pressure: 123/59 Pulse: 74 Respirations: 18 Pulse Ox (%): 97 - Studies Medications List Reviewed: Yes Assessment & Plan Discharge Plan: LTAC Plan to discharge in: 24 Hours Physician Review Additional Text: CT Scan: COMPARISON: none. TECHNIQUE: Computed axial tomography of the abdomen pelvis was obtained. 100 cc Isovue-300 was administered intravenously. Oral contrast was not requested which limits evaluation of bowel. All CT scans are performed using dose optimization technique as appropriate and may include automated exposure control or mA/KV adjustment according to patient size. FINDINGS: Decubitus ulcer posterior lower pelvis. No abscess seen The liver, spleen, pancreas, adrenal and right kidney appear unremarkable. 2.8 centimeter left renal cyst. There is no evidence of diverticulitis. Normal appendix. Post surgical changes involve the spine. Degenerative changes Shirley catheter within the the bladder. The bladder wall is thickened. IMPRESSION: Decubitus ulcer posterior lower pelvis. No abscess seen MRI Sacrum: COMPARISON: No comparisons FINDINGS: A large, deep posterior soft tissue ulceration is present. The ulceration is 4 cm in anterior posterior dimension, 3.5 cm transverse dimension and approximately 3 cm depth. Irregular edematous tissue is seen extending the from the large ulceration into the presacral space. The coccygeal segments demonstrate diminished T1 signal with elevated T2/IR signal present. This likely indicates mild osteomyelitis. No localized fluid collection to suggest abscess. IMPRESSION: Mild osteomyelitis of the residual coccygeal segments suspected. Large posterior soft tissue ulceration. Surgery: Date: 12/01/20 12:59 Preoperative diagnosis: necrotic infected sacral decubitus ulcer Postoperative diagnosis: same Primary procedure: 1. Excisional debridement necrotic infected sacral decubitus ulcer Secondary procedure: 6 x 6 x 2.5 cm Other procedure(s): 2. Pulse lavage Estimated blood loss: < 10cc Specimen: culture, necrotic tissue Findings: see dicta Anesthesia: General Complications: None Drain(s): Other Physical exam: General: Alert, In no apparent distress, Cardiovascular: Regular rate/rhythm, Normal S1 S2, Systolic murmur Gastrointestinal: Normal bowel sounds, Soft and benign, Non-distended, No tenderness Musculoskeletal: No clubbing, No swelling, Tenderness (Spinal tenderness), wheelchair at bedside. 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 Patient status post excisional debridement. Patient doing well at this time. Pain well controlled. Sensitivities reviewed. Continue with IV Levaquin 500 mg daily and vancomycin IV. Patient will need 6 to 8 weeks of IV antibiotic therapy. PICC line in place. Pharmacy to monitor and adjust medication. With son at length concerning patient. Son agrees with long-term acute care facility placement to continue aggressive wound care, IV antibiotic therapy and hyperbarics. If this option fails son would agree with skilled placement. Agree with infectious disease. Continue with current wound care instructions by infectious disease. Case discussed at length with case management. Patient is wheelchair-bound. CAD: Continue with DVT prophylaxisheparin. Continue with Plavix 75 mg daily. Hypertension: Continue with hydralazine 25 mg 3 times a day and metoprolol 25 mg daily. Parameters in place. Hyperlipidemia: Continue with Zetia 10 mg daily. Hypothyroidism: Continue with Synthroid 175 mcg daily. BPH: Continue with Flomax 0.4 mg daily Obesity, BMI 33.9: Continue to address lifestyle modification education. DVT prophylaxis: Heparin CODE STATUS: Full code [facility] care [id number] minutes: Continue to pursue long-term acute care facility placement for aggressive wound care, IV antibiotic therapy and hyperbarics. If denied then will need to pursue skilled placement. Time Spent Managing Pts Care (In Minutes): 55
[2020-12-06] MEDS: COLLAGENASE 30 GM OINTMENT TOP SCH (09:00)
--- NOTE | 2020-12-06 09:40 | P.PN ---
Subjective Date of Service: 12/06/20 Chief Complaint: Sacral wound Patient seen examined at bedside, wound examined, stable in condition. Continue current wound care treatment offload Review of Systems 10-point ROS is otherwise unremarkable Physical Examination - Vital Signs Temperature: 97.2 F Blood Pressure: 191/79 Pulse: 73 Respirations: 18 Pulse Ox (%): 99 - Studies Laboratory Last Values WBC 8.60 K/uL (4.3-10.9) D 11/30/20 03:09 RBC 3.77 M/uL (4.33-5.43) L 11/30/20 03:09 Hgb 11.6 g/dL (13.6-17.9) L 11/30/20 03:09 Hct 34.2 % (39.6-49.0) L 11/30/20 03:09 MCV 90.7 fL (80-100) 11/30/20 03:09 MCH 30.9 pg (27.0-35.0) 11/30/20 03:09 MCHC 34.1 g/dL (32.0-36.0) 11/30/20 03:09 RDW 14.0 % (12.1-15.2) 11/30/20 03:09 Plt Count 299 K/uL (152-406) 11/30/20 03:09 MPV 7.5 fL (7.6-11.3) L 11/30/20 03:09 Neutrophils % 59.8 % (41.7-73.7) 11/30/20 03:09 Lymphocytes % 20.9 % (15.3-44.8) 11/30/20 03:09 Monocytes % 14.6 % (3.3-12.3) H 11/30/20 03:09 Eosinophils % 4.3 % (0-4.4) 11/30/20 03:09 Basophils % 0.4 % (0-1.3) 11/30/20 03:09 Absolute Neutrophils 5.2 K/uL (1.8-8.0) 11/30/20 03:09 Absolute Lymphocytes 1.8 K/uL (0.7-4.9) 11/30/20 03:09 Absolute Monocytes 1.3 K/uL (0.1-1.3) 11/30/20 03:09 Absolute Eosinophils 0.4 K/uL (0-0.5) 11/30/20 03:09 Absolute Basophils 0.0 K/uL (0-0.5) 11/30/20 03:09 PT 14.1 SECONDS (9.5-12.5) H 11/30/20 03:09 INR 1.22 11/30/20 03:09 Sodium 134 mmol/L (136-145) L 11/29/20 15:12 Sodium Cancelled 11/29/20 15:12 Potassium 4.0 mmol/L (3.5-5.1) 11/29/20 15:12 Potassium Cancelled 11/29/20 15:12 Chloride 94 mmol/L (98-107) L 11/29/20 15:12 Chloride Cancelled 11/29/20 15:12 Carbon Dioxide 35 mmol/L (21-32) H 11/29/20 15:12 Carbon Dioxide Cancelled 11/29/20 15:12 BUN 22 mg/dL (7-18) H 11/29/20 15:12 BUN Cancelled 11/29/20 15:12 Creatinine 0.80 mg/dL (0.55-1.3) 11/29/20 15:12 Creatinine Cancelled 11/29/20 15:12 Estimated GFR > 90 mL/min (=/>90) 11/29/20 15:12 Estimated GFR Cancelled 11/29/20 15:12 Glucose 106 mg/dL (74-106) 11/29/20 15:12 Glucose Cancelled 11/29/20 15:12 Hemoglobin A1c 5.8 % (4.2-6.3) 11/29/20 15:12 Lactic Acid 1.2 mmol/L (0.4-2.0) 11/29/20 15:11 Calcium 9.6 mg/dL (8.5-10.1) 11/29/20 15:12 Calcium Cancelled 11/29/20 15:12 Magnesium 2.3 mg/dL (1.8-2.4) 11/29/20 15:12 Total Bilirubin 0.6 mg/dL (0.2-1.0) 11/29/20 15:12 Direct Bilirubin 0.2 mg/dL (0-0.2) 11/29/20 15:12 AST 17 U/L (15-37) 11/29/20 15:12 ALT 22 U/L (12-78) 11/29/20 15:12 Alkaline Phosphatase 72 U/L (45-117) 11/29/20 15:12 Rapid Troponin I < 0.02 ng/mL (0.0-0.045) 11/29/20 15:12 NT-Pro-B Natriuret Pep 107 pg/mL (<450) 11/29/20 15:12 Serum Total Protein 8.4 g/dL (6.4-8.2) H 11/29/20 15:12 Albumin 3.0 g/dL (3.4-5.0) L 11/29/20 15:12 Globulin 5.4 g/dL (2.3-3.5) H 11/29/20 15:12 Albumin/Globulin Ratio 0.6 (1.1-1.8) L 11/29/20 15:12 Triglycerides 101 mg/dL (<150) 11/30/20 03:09 Cholesterol 170 mg/dL (<200) 11/30/20 03:09 LDL Cholesterol, Calc 117 (<130) 11/30/20 03:09 HDL Cholesterol 33 mg/dL (40-60) L 11/30/20 03:09 Cholesterol/HDL Ratio 5.15 11/30/20 03:09 Procalcitonin < 0.05 ng/mL (<0.050) 11/29/20 15:12 Urine pH 5.5 (5.0-7.0) 11/29/20 17:02 Ur Specific [place] 1.015 (1.005-1.030) 11/29/20 17:02 Glucose (UA)(Auto) Negative (Negative) 11/29/20 17:02 Urine Ketones Negative (Negative) 11/29/20 17:02 Urine Blood Trace-intact (Negative) H 11/29/20 17:02 Urine Nitrite Positive (Negative) H 11/29/20 17:02 Ur Leukocyte Esterase 2+ (Negative) H 11/29/20 17:02 Urine RBC <5 /HPF (NONE SEEN) 11/29/20 17:01 Urine WBC Tntc /HPF (<5) H 11/29/20 17:01 Ur Squamous Epith Cells <5 /HPF (NONE SEEN) 11/29/20 17:01 Urine Bacteria Loaded /HPF (NONE SEEN) H 11/29/20 17:01 Urine Culture Reflexed Reflexed 11/29/20 17:01 Urine Total Protein Negative (Negative) 11/29/20 17:02 Vancomycin Trough < 0.8 ug/mL (5.0-20.0) L 11/29/20 15:12 SARS-CoV-2 RNA (RT-PCR) Negative (NEGATIVE) 11/30/20 11:45 Medications List Reviewed: Yes Assessment And Plan - Plan Physical Exam: General: Alert, In no apparent distress, Oriented x3, Obese HEENT: Atraumatic, Normocephalic Neck: Supple, 2+ carotid pulse no bruit Respiratory: Clear to auscultation bilaterally, Normal air movement Cardiovascular: Normal pulses, Regular rate/rhythm Capillary refill: <2 Seconds Gastrointestinal: Normal bowel sounds, Non-distended Musculoskeletal: No clubbing, No contractures Integumentary: Pressure ulcer (Stage IV coccyx ulcer: Luisa wound tissue red/purple discoloration. 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 Patient underwent surgical debridement on 12/01. Wound care orders change from Santyl to Medihoney with alginate due to no necrotic/slough tissue being present on base of wound. Pack with alginate. Continue to offload wound and avoid direct pressure. Reposition patient in bed every 2 hr during waking hr. Recommend air mattress. -blood cultures: Performed on 11/29 no growth to date. Wound culture taken on 12/01: Growing Enterobacter colace and Pseudomonas aeruginosa. Urine culture obtained on 11/29: Growing Citrobacter farmeri. All cultures show susceptibility to Levaquin. Started on probiotic -antibiotics: Continue on dual therapy IV antibiotics at this time. Continue to monitor renal function. Vancomycin trough goal of 15-20. Working with pharmacy to achieve therapeutic range. -patient started on vitamins promote wound healing including vitamin-C and zinc -protein caloric malnutrition: Recommend supplemental Ensure protein drinks -recommend transferred to [facility] to continue on wound care treatment sick and utilize hyperbaric oxygen treatment--pending insurance approval. -medical management per primary team--continue monitor CBC and BMP -continue monitor for signs infection Plan of care discussed with Dr. Ospina Thank you for consultation Physician Review: Patient Assessed, Agree with Above Assessment and Plan
[2020-12-06 09:48] LABS: Platelet Estimate ADEQ
[2020-12-06 09:49] LABS: Blood Morphology Comment NOT SEEN (NOT SEEN)
[2020-12-06] MEDS: VANCOMYCIN 2 GM in NA CHLORIDE 0.9% 500 ML IVPB SCH (10:16)
[2020-12-06] MEDS: ENSURE HIGH PROTEIN 237 ML CAN PO SCH ×2 (10:18→20:47)
[2020-12-06] MEDS: JUVEN PACKET PO SCH ×2 (10:18→21:00)
[2020-12-06] MEDS: ZINC SULFATE 220 MG CAP PO SCH (10:18)
[2020-12-06] MEDS: LACTOBACILLUS/ACIDOPHILUS TAB PO SCH ×2 (10:18→20:46)
[2020-12-06] MEDS: TAMSULOSIN 0.4 MG SR CAP PO SCH (10:18)
[2020-12-06] MEDS: HEPARIN 5000 UNIT/ML 1 ML VIAL SQ SCH ×2 (10:18→20:47)
[2020-12-06] MEDS: EZETIMIBE 10 MG TAB PO SCH (10:19)
[2020-12-06] MEDS: ASCORBIC ACID 500 MG TABLET PO SCH (10:19)
[2020-12-06] MEDS: CLOPIDOGREL 75 MG TABLET PO SCH (10:19)
[2020-12-06] MEDS: HYDRALAZINE HCL 25 MG TABLET PO SCH ×3 (10:19→20:47)
[2020-12-06] MEDS: METOPROLOL TAR 25 MG TAB PO SCH (10:19)
[2020-12-06] MEDS: MEDIHONEY 44 ML TOPICAL TUBE TOP SCH (10:20)
[2020-12-06] MEDS: CHOLESTYRAMINE/ASP 4 GM/PKT PO SCH (20:46)
[2020-12-06] MEDS: MELATONIN 5 MG TABLET PO PRN (21:10)
[2020-12-06] MEDS: MORPHINE 2 MG/ML SYR IV PRN (21:11)
[2020-12-07] MEDS: Levofloxacin500mg IV 500 MG/100 ML BAG IV SCH (01:48)
[2020-12-07] MEDS: MORPHINE 2 MG/ML SYR IV PRN ×2 (03:46→21:31)
--- NOTE | 2020-12-07 06:04 | P.PN ---
Subjective Date of Service: 12/07/20 Chief Complaint: Sacral wound Subjective: Doing well Physical Examination - Vital Signs Temperature: 97.9 F Blood Pressure: 147/69 Pulse: 87 Respirations: 17 Pulse Ox (%): 98 - Studies Medications List Reviewed: Yes Assessment & Plan Discharge Plan: LTAC Plan to discharge in: 24 Hours Physician Review Additional Text: CT Scan: COMPARISON: none. TECHNIQUE: Computed axial tomography of the abdomen pelvis was obtained. 100 cc Isovue-300 was administered intravenously. Oral contrast was not requested which limits evaluation of bowel. All CT scans are performed using dose optimization technique as appropriate and may include automated exposure control or mA/KV adjustment according to patient size. FINDINGS: Decubitus ulcer posterior lower pelvis. No abscess seen The liver, spleen, pancreas, adrenal and right kidney appear unremarkable. 2.8 centimeter left renal cyst. There is no evidence of diverticulitis. Normal appendix. Post surgical changes involve the spine. Degenerative changes Shirley catheter within the the bladder. The bladder wall is thickened. IMPRESSION: Decubitus ulcer posterior lower pelvis. No abscess seen MRI Sacrum: COMPARISON: No comparisons FINDINGS: A large, deep posterior soft tissue ulceration is present. The ulceration is 4 cm in anterior posterior dimension, 3.5 cm transverse dimension and approximately 3 cm depth. Irregular edematous tissue is seen extending the from the large ulceration into the presacral space. The coccygeal segments demonstrate diminished T1 signal with elevated T2/IR signal present. This likely indicates mild osteomyelitis. No localized fluid collection to suggest abscess. IMPRESSION: Mild osteomyelitis of the residual coccygeal segments suspected. Large posterior soft tissue ulceration. Surgery: Date: 12/01/20 12:59 Preoperative diagnosis: necrotic infected sacral decubitus ulcer Postoperative diagnosis: same Primary procedure: 1. Excisional debridement necrotic infected sacral decubitus ulcer Secondary procedure: 6 x 6 x 2.5 cm Other procedure(s): 2. Pulse lavage Estimated blood loss: < 10cc Specimen: culture, necrotic tissue Findings: see dicta Anesthesia: General Complications: None Drain(s): Other Physical exam: General: Alert, In no apparent distress, Cardiovascular: Regular rate/rhythm, Normal S1 S2, Systolic murmur Gastrointestinal: Normal bowel sounds, Soft and benign, Non-distended, No tenderness Musculoskeletal: No clubbing, No swelling, Tenderness (Spinal tenderness), wheelchair at bedside. 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 Patient status post excisional debridement. Patient doing well at this time. Pain well controlled. Sensitivities reviewed. Continue with IV Levaquin 500 mg daily and vancomycin IV. Patient will need 6 to 8 weeks of IV antibiotic therapy. PICC line in place. Pharmacy to monitor and adjust medication. Infectious disease recommends long-term acute care facility placement for aggressive wound care, IV antibiotic therapy and hyperbarics. Await approval for long-term acute care facility placement. If this is denied then will consider skilled placement. CAD: Continue with DVT prophylaxisheparin. Continue with Plavix 75 mg daily. Hypertension: Continue with hydralazine 25 mg 3 times a day and metoprolol 25 mg daily. Parameters in place. Hyperlipidemia: Continue with Zetia 10 mg daily. Hypothyroidism: Continue with Synthroid 175 mcg daily. BPH: Continue with Flomax 0.4 mg daily Obesity, BMI 33.9: Continue to address lifestyle modification education. DVT prophylaxis: Heparin CODE STATUS: Full code Advance care [id number] minutes: Continue to pursue long-term acute care facility placement for aggressive wound care, IV antibiotic therapy and hyperbarics. If denied then will need to pursue skilled placement. Time Spent Managing Pts Care (In Minutes): 55
[2020-12-07] MEDS: LEVOTHYROXINE SOD 0.1 MG TAB PO SCH (06:30)
[2020-12-07] MEDS: LEVOTHYROXINE SOD 0.075 MG TAB PO SCH (06:30)
[2020-12-07] MEDS: ASCORBIC ACID 500 MG TABLET PO SCH (08:26)
[2020-12-07] MEDS: JUVEN PACKET PO SCH ×2 (08:26→21:00)
[2020-12-07] MEDS: HYDRALAZINE HCL 25 MG TABLET PO SCH ×3 (08:26→21:31)
[2020-12-07] MEDS: CLOPIDOGREL 75 MG TABLET PO SCH (08:26)
[2020-12-07] MEDS: EZETIMIBE 10 MG TAB PO SCH (08:26)
[2020-12-07] MEDS: LACTOBACILLUS/ACIDOPHILUS TAB PO SCH ×2 (08:26→21:31)
[2020-12-07] MEDS: ENSURE HIGH PROTEIN 237 ML CAN PO SCH ×2 (08:26→21:00)
[2020-12-07] MEDS: METOPROLOL TAR 25 MG TAB PO SCH (08:27)
[2020-12-07] MEDS: ZINC SULFATE 220 MG CAP PO SCH (08:27)
[2020-12-07] MEDS: HEPARIN 5000 UNIT/ML 1 ML VIAL SQ SCH ×2 (08:28→21:31)
[2020-12-07] MEDS: TAMSULOSIN 0.4 MG SR CAP PO SCH (08:28)
[2020-12-07] MEDS: MEDIHONEY 44 ML TOPICAL TUBE TOP SCH (08:28)
[2020-12-07] MEDS: VANCOMYCIN 2 GM in NA CHLORIDE 0.9% 500 ML IVPB SCH (09:00)
--- NOTE | 2020-12-07 09:40 | P.PN ---
Subjective Date of Service: 12/07/20 Chief Complaint: Sacral wound Patient seen examined at bedside, tolerating antibiotics well, no nausea vomiting or diarrhea. Vancomycin trough on 12/07 12.5, below therapeutic range. Patient noted she has elevated eosinophils on most recent blood work. Review of Systems 10-point ROS is otherwise unremarkable Physical Examination - Vital Signs Temperature: 98.4 F Blood Pressure: 135/73 Pulse: 97 Respirations: 18 Pulse Ox (%): 99 - Studies Laboratory Last Values WBC 8.60 K/uL (4.3-10.9) D 11/30/20 03:09 RBC 3.77 M/uL (4.33-5.43) L 11/30/20 03:09 Hgb 11.6 g/dL (13.6-17.9) L 11/30/20 03:09 Hct 34.2 % (39.6-49.0) L 11/30/20 03:09 MCV 90.7 fL (80-100) 11/30/20 03:09 MCH 30.9 pg (27.0-35.0) 11/30/20 03:09 MCHC 34.1 g/dL (32.0-36.0) 11/30/20 03:09 RDW 14.0 % (12.1-15.2) 11/30/20 03:09 Plt Count 299 K/uL (152-406) 11/30/20 03:09 MPV 7.5 fL (7.6-11.3) L 11/30/20 03:09 Neutrophils % 59.8 % (41.7-73.7) 11/30/20 03:09 Lymphocytes % 20.9 % (15.3-44.8) 11/30/20 03:09 Monocytes % 14.6 % (3.3-12.3) H 11/30/20 03:09 Eosinophils % 4.3 % (0-4.4) 11/30/20 03:09 Basophils % 0.4 % (0-1.3) 11/30/20 03:09 Absolute Neutrophils 5.2 K/uL (1.8-8.0) 11/30/20 03:09 Absolute Lymphocytes 1.8 K/uL (0.7-4.9) 11/30/20 03:09 Absolute Monocytes 1.3 K/uL (0.1-1.3) 11/30/20 03:09 Absolute Eosinophils 0.4 K/uL (0-0.5) 11/30/20 03:09 Absolute Basophils 0.0 K/uL (0-0.5) 11/30/20 03:09 PT 14.1 SECONDS (9.5-12.5) H 11/30/20 03:09 INR 1.22 11/30/20 03:09 Sodium 134 mmol/L (136-145) L 11/29/20 15:12 Sodium Cancelled 11/29/20 15:12 Potassium 4.0 mmol/L (3.5-5.1) 11/29/20 15:12 Potassium Cancelled 11/29/20 15:12 Chloride 94 mmol/L (98-107) L 11/29/20 15:12 Chloride Cancelled 11/29/20 15:12 Carbon Dioxide 35 mmol/L (21-32) H 11/29/20 15:12 Carbon Dioxide Cancelled 11/29/20 15:12 BUN 22 mg/dL (7-18) H 11/29/20 15:12 BUN Cancelled 11/29/20 15:12 Creatinine 0.80 mg/dL (0.55-1.3) 11/29/20 15:12 Creatinine Cancelled 11/29/20 15:12 Estimated GFR > 90 mL/min (=/>90) 11/29/20 15:12 Estimated GFR Cancelled 11/29/20 15:12 Glucose 106 mg/dL (74-106) 11/29/20 15:12 Glucose Cancelled 11/29/20 15:12 Hemoglobin A1c 5.8 % (4.2-6.3) 11/29/20 15:12 Lactic Acid 1.2 mmol/L (0.4-2.0) 11/29/20 15:11 Calcium 9.6 mg/dL (8.5-10.1) 11/29/20 15:12 Calcium Cancelled 11/29/20 15:12 Magnesium 2.3 mg/dL (1.8-2.4) 11/29/20 15:12 Total Bilirubin 0.6 mg/dL (0.2-1.0) 11/29/20 15:12 Direct Bilirubin 0.2 mg/dL (0-0.2) 11/29/20 15:12 AST 17 U/L (15-37) 11/29/20 15:12 ALT 22 U/L (12-78) 11/29/20 15:12 Alkaline Phosphatase 72 U/L (45-117) 11/29/20 15:12 Rapid Troponin I < 0.02 ng/mL (0.0-0.045) 11/29/20 15:12 NT-Pro-B Natriuret Pep 107 pg/mL (<450) 11/29/20 15:12 Serum Total Protein 8.4 g/dL (6.4-8.2) H 11/29/20 15:12 Albumin 3.0 g/dL (3.4-5.0) L 11/29/20 15:12 Globulin 5.4 g/dL (2.3-3.5) H 11/29/20 15:12 Albumin/Globulin Ratio 0.6 (1.1-1.8) L 11/29/20 15:12 Triglycerides 101 mg/dL (<150) 11/30/20 03:09 Cholesterol 170 mg/dL (<200) 11/30/20 03:09 LDL Cholesterol, Calc 117 (<130) 11/30/20 03:09 HDL Cholesterol 33 mg/dL (40-60) L 11/30/20 03:09 Cholesterol/HDL Ratio 5.15 11/30/20 03:09 Procalcitonin < 0.05 ng/mL (<0.050) 11/29/20 15:12 Urine pH 5.5 (5.0-7.0) 11/29/20 17:02 Ur Specific [place] 1.015 (1.005-1.030) 11/29/20 17:02 Glucose (UA)(Auto) Negative (Negative) 11/29/20 17:02 Urine Ketones Negative (Negative) 11/29/20 17:02 Urine Blood Trace-intact (Negative) H 11/29/20 17:02 Urine Nitrite Positive (Negative) H 11/29/20 17:02 Ur Leukocyte Esterase 2+ (Negative) H 11/29/20 17:02 Urine RBC <5 /HPF (NONE SEEN) 11/29/20 17:01 Urine WBC Tntc /HPF (<5) H 11/29/20 17:01 Ur Squamous Epith Cells <5 /HPF (NONE SEEN) 11/29/20 17:01 Urine Bacteria Loaded /HPF (NONE SEEN) H 11/29/20 17:01 Urine Culture Reflexed Reflexed 11/29/20 17:01 Urine Total Protein Negative (Negative) 11/29/20 17:02 Vancomycin Trough < 0.8 ug/mL (5.0-20.0) L 11/29/20 15:12 SARS-CoV-2 RNA (RT-PCR) Negative (NEGATIVE) 11/30/20 11:45 Medications List Reviewed: Yes Assessment And Plan - Plan Physical Exam: General: Alert, In no apparent distress, Oriented x3, Obese HEENT: Atraumatic, Normocephalic Neck: Supple, 2+ carotid pulse no bruit Respiratory: Clear to auscultation bilaterally, Normal air movement Cardiovascular: Normal pulses, Regular rate/rhythm Capillary refill: <2 Seconds Gastrointestinal: Normal bowel sounds, Non-distended Musculoskeletal: No clubbing, No contractures Integumentary: Pressure ulcer (Stage IV coccyx ulcer: Luisa wound tissue red/purple discoloration. 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 Patient underwent surgical debridement on 12/01. Wound care orders change from [facility] to [facility] with alginate due to no necrotic/slough tissue being present on base of wound. Pack with alginate. Continue to offload wound and avoid direct pressure. Reposition patient in bed every 2 hr during waking hr. Recommend air mattress. -blood cultures: Performed on 11/29 no growth to date. Wound culture taken on 12/01: Growing Enterobacter colace and Pseudomonas aeruginosa. Urine culture obtained on 11/29: Growing Citrobacter farmeri. All cultures show susceptibility to Levaquin. Started on probiotic -antibiotics: Continue on dual therapy IV antibiotics at this time. Continue to monitor renal function. Vancomycin trough goal of 15-20. Working with paulino aguayo to achieve therapeutic range. -patient started on vitamins promote wound healing including vitamin-C and zinc -protein caloric malnutrition: Recommend supplemental Ensure protein drinks -recommend transferred to [facility] to continue on wound care treatment sick and utilize hyperbaric oxygen treatment--pending insurance approval. -medical management per primary team--continue monitor CBC and BMP -continue monitor for signs infection Plan of care discussed with Dr. Ospina Thank you for consultation Physician Review: Patient Assessed, Agree with Above Assessment and Plan
[2020-12-07] MEDS: MELATONIN 5 MG TABLET PO PRN (21:31)
[2020-12-07] MEDS: CHOLESTYRAMINE/ASP 4 GM/PKT PO SCH (21:31)
[2020-12-08] MEDS: Levofloxacin500mg IV 500 MG/100 ML BAG IV SCH
[2020-12-08] MEDS: MORPHINE 2 MG/ML SYR IV PRN ×3 (02:01→19:40)
[2020-12-08] MEDS: LEVOTHYROXINE SOD 0.1 MG TAB PO SCH (05:44)
[2020-12-08] MEDS: LEVOTHYROXINE SOD 0.075 MG TAB PO SCH (05:44)
--- NOTE | 2020-12-08 05:56 | P.PN ---
Subjective Date of Service: 12/08/20 Chief Complaint: Sacral wound Subjective: Doing well Physical Examination - Vital Signs Temperature: 99.5 F Blood Pressure: 128/59 Pulse: 62 Respirations: 16 Pulse Ox (%): 94 - Studies Medications List Reviewed: Yes Assessment & Plan Discharge Plan: LTAC Plan to discharge in: 24 Hours Physician Review Additional Text: COVID: 11/29 positive, 11/30 negative, 12/[address] Scan: COMPARISON: none. TECHNIQUE: Computed axial tomography of the abdomen pelvis was obtained. 100 cc Isovue-300 was administered intravenously. Oral contrast was not requested which limits evaluation of bowel. All CT scans are performed using dose optimization technique as appropriate and may include automated exposure control or mA/KV adjustment according to patient size. FINDINGS: Decubitus ulcer posterior lower pelvis. No abscess seen The liver, spleen, pancreas, adrenal and right kidney appear unremarkable. 2.8 centimeter left renal cyst. There is no evidence of diverticulitis. Normal appendix. Post surgical changes involve the spine. Degenerative changes Shirley catheter within the the bladder. The bladder wall is thickened. IMPRESSION: Decubitus ulcer posterior lower pelvis. No abscess seen MRI Sacrum: COMPARISON: No comparisons FINDINGS: A large, deep posterior soft tissue ulceration is present. The ulceration is 4 cm in anterior posterior dimension, 3.5 cm transverse dimension and approximately 3 cm depth. Irregular edematous tissue is seen extending the from the large ulceration into the presacral space. The coccygeal segments demonstrate diminished T1 signal with elevated T2/IR signal present. This likely indicates mild osteomyelitis. No localized fluid collection to suggest abscess. IMPRESSION: Mild osteomyelitis of the residual coccygeal segments suspected. Large posterior soft tissue ulceration. Surgery: Date: 12/01/20 12:59 Preoperative diagnosis: necrotic infected sacral decubitus ulcer Postoperative diagnosis: same Primary procedure: 1. Excisional debridement necrotic infected sacral decubitus ulcer Secondary procedure: 6 x 6 x 2.5 cm Other procedure(s): 2. Pulse lavage Estimated blood loss: < 10cc Specimen: culture, necrotic tissue Findings: see dicta Anesthesia: General Complications: None Drain(s): Other Physical exam: General: Alert, In no apparent distress, Cardiovascular: Regular rate/rhythm, Normal S1 S2, Systolic murmur Gastrointestinal: Normal bowel sounds, Soft and benign, Non-distended, No tenderness Musculoskeletal: No clubbing, No swelling, Tenderness (Spinal tenderness), wheelchair at bedside. 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 Still waiting approval for LTAC. Patient status post excisional debridement. Patient doing well at this time. Pain well controlled. Sensitivities reviewed. Continue with IV Levaquin 500 mg daily and vancomycin IV. Patient will need 6 to 8 weeks of IV antibiotic therapy. PICC line in place. Pharmacy to monitor and adjust medication. Infectious disease recommends long-term acute care facility placement for aggressive wound care, IV antibiotic therapy and hyperbarics. Await approval for long-term acute care facility placement. If this is denied then will consider skilled placement. CAD: Continue with DVT prophylaxisheparin. Continue with Plavix 75 mg daily. Hypertension: Continue with hydralazine 25 mg 3 times a day and metoprolol 25 mg daily. Parameters in place. Hyperlipidemia: Continue with Zetia 10 mg daily. Hypothyroidism: Continue with Synthroid 175 mcg daily. BPH: Continue with Flomax 0.4 mg daily COVID: 11/29 positive, 11/30 negative, 12/03 negative Obesity, BMI 33.9: Continue to address lifestyle modification education. DVT prophylaxis: Heparin CODE STATUS: Full code Advance care [id number] minutes: Continue to pursue long-term acute care facility placement for aggressive wound care, IV antibiotic therapy and hyperbarics. If denied then will need to pursue skilled placement. Time Spent Managing Pts Care (In Minutes): 55
[2020-12-08] MEDS ORDERED: ALTEPLASE 2 MG/VIAL IV SCH (06:00)
[2020-12-08] MEDS ORDERED: WATER FOR INJ,STERILE 10 ML ONE (06:17)
[2020-12-08] MEDS: JUVEN PACKET PO SCH ×2 (09:00→20:54)
[2020-12-08] MEDS: HEPARIN 5000 UNIT/ML 1 ML VIAL SQ SCH ×2 (09:00→21:00)
[2020-12-08] MEDS: VANCOMYCIN 2 GM in NA CHLORIDE 0.9% 500 ML IVPB SCH (09:08)
[2020-12-08] MEDS: ASCORBIC ACID 500 MG TABLET PO SCH (09:10)
[2020-12-08] MEDS: METOPROLOL TAR 25 MG TAB PO SCH (09:10)
[2020-12-08] MEDS: HYDRALAZINE HCL 25 MG TABLET PO SCH ×3 (09:10→20:53)
[2020-12-08] MEDS: EZETIMIBE 10 MG TAB PO SCH (09:10)
[2020-12-08] MEDS: TAMSULOSIN 0.4 MG SR CAP PO SCH (09:10)
[2020-12-08] MEDS: ZINC SULFATE 220 MG CAP PO SCH (09:10)
[2020-12-08] MEDS: CLOPIDOGREL 75 MG TABLET PO SCH (09:10)
[2020-12-08] MEDS: LACTOBACILLUS/ACIDOPHILUS TAB PO SCH ×2 (09:10→20:53)
[2020-12-08] MEDS: ENSURE HIGH PROTEIN 237 ML CAN PO SCH ×2 (09:11→20:53)
[2020-12-08] MEDS: MEDIHONEY 44 ML TOPICAL TUBE TOP SCH (09:11)
--- NOTE | 2020-12-08 11:04 | P.PN ---
Subjective Date of Service: 12/08/20 Chief Complaint: Sacral wound Patient seen examined at bedside, patient was denied transfer to [facility]. Patient and family have agreed upon transferred to [facility] Review of Systems 10-point ROS is otherwise unremarkable Physical Examination - Vital Signs Temperature: 99.5 F Blood Pressure: 128/59 Pulse: 62 Respirations: 16 Pulse Ox (%): 94 - Studies Laboratory Last Values WBC 8.60 K/uL (4.3-10.9) D 11/30/20 03:09 RBC 3.77 M/uL (4.33-5.43) L 11/30/20 03:09 Hgb 11.6 g/dL (13.6-17.9) L 11/30/20 03:09 Hct 34.2 % (39.6-49.0) L 11/30/20 03:09 MCV 90.7 fL (80-100) 11/30/20 03:09 MCH 30.9 pg (27.0-35.0) 11/30/20 03:09 MCHC 34.1 g/dL (32.0-36.0) 11/30/20 03:09 RDW 14.0 % (12.1-15.2) 11/30/20 03:09 Plt Count 299 K/uL (152-406) 11/30/20 03:09 MPV 7.5 fL (7.6-11.3) L 11/30/20 03:09 Neutrophils % 59.8 % (41.7-73.7) 11/30/20 03:09 Lymphocytes % 20.9 % (15.3-44.8) 11/30/20 03:09 Monocytes % 14.6 % (3.3-12.3) H 11/30/20 03:09 Eosinophils % 4.3 % (0-4.4) 11/30/20 03:09 Basophils % 0.4 % (0-1.3) 11/30/20 03:09 Absolute Neutrophils 5.2 K/uL (1.8-8.0) 11/30/20 03:09 Absolute Lymphocytes 1.8 K/uL (0.7-4.9) 11/30/20 03:09 Absolute Monocytes 1.3 K/uL (0.1-1.3) 11/30/20 03:09 Absolute Eosinophils 0.4 K/uL (0-0.5) 11/30/20 03:09 Absolute Basophils 0.0 K/uL (0-0.5) 11/30/20 03:09 PT 14.1 SECONDS (9.5-12.5) H 11/30/20 03:09 INR 1.22 11/30/20 03:09 Sodium 134 mmol/L (136-145) L 11/29/20 15:12 Sodium Cancelled 11/29/20 15:12 Potassium 4.0 mmol/L (3.5-5.1) 11/29/20 15:12 Potassium Cancelled 11/29/20 15:12 Chloride 94 mmol/L (98-107) L 11/29/20 15:12 Chloride Cancelled 11/29/20 15:12 Carbon Dioxide 35 mmol/L (21-32) H 11/29/20 15:12 Carbon Dioxide Cancelled 11/29/20 15:12 BUN 22 mg/dL (7-18) H 11/29/20 15:12 BUN Cancelled 11/29/20 15:12 Creatinine 0.80 mg/dL (0.55-1.3) 11/29/20 15:12 Creatinine Cancelled 11/29/20 15:12 Estimated GFR > 90 mL/min (=/>90) 11/29/20 15:12 Estimated GFR Cancelled 11/29/20 15:12 Glucose 106 mg/dL (74-106) 11/29/20 15:12 Glucose Cancelled 11/29/20 15:12 Hemoglobin A1c 5.8 % (4.2-6.3) 11/29/20 15:12 Lactic Acid 1.2 mmol/L (0.4-2.0) 11/29/20 15:11 Calcium 9.6 mg/dL (8.5-10.1) 11/29/20 15:12 Calcium Cancelled 11/29/20 15:12 Magnesium 2.3 mg/dL (1.8-2.4) 11/29/20 15:12 Total Bilirubin 0.6 mg/dL (0.2-1.0) 11/29/20 15:12 Direct Bilirubin 0.2 mg/dL (0-0.2) 11/29/20 15:12 AST 17 U/L (15-37) 11/29/20 15:12 ALT 22 U/L (12-78) 11/29/20 15:12 Alkaline Phosphatase 72 U/L (45-117) 11/29/20 15:12 Rapid Troponin I < 0.02 ng/mL (0.0-0.045) 11/29/20 15:12 NT-Pro-B Natriuret Pep 107 pg/mL (<450) 11/29/20 15:12 Serum Total Protein 8.4 g/dL (6.4-8.2) H 11/29/20 15:12 Albumin 3.0 g/dL (3.4-5.0) L 11/29/20 15:12 Globulin 5.4 g/dL (2.3-3.5) H 11/29/20 15:12 Albumin/Globulin Ratio 0.6 (1.1-1.8) L 11/29/20 15:12 Triglycerides 101 mg/dL (<150) 11/30/20 03:09 Cholesterol 170 mg/dL (<200) 11/30/20 03:09 LDL Cholesterol, Calc 117 (<130) 11/30/20 03:09 HDL Cholesterol 33 mg/dL (40-60) L 11/30/20 03:09 Cholesterol/HDL Ratio 5.15 11/30/20 03:09 Procalcitonin < 0.05 ng/mL (<0.050) 11/29/20 15:12 Urine pH 5.5 (5.0-7.0) 11/29/20 17:02 Ur Specific [place] 1.015 (1.005-1.030) 11/29/20 17:02 Glucose (UA)(Auto) Negative (Negative) 11/29/20 17:02 Urine Ketones Negative (Negative) 11/29/20 17:02 Urine Blood Trace-intact (Negative) H 11/29/20 17:02 Urine Nitrite Positive (Negative) H 11/29/20 17:02 Ur Leukocyte Esterase 2+ (Negative) H 11/29/20 17:02 Urine RBC <5 /HPF (NONE SEEN) 11/29/20 17:01 Urine WBC Tntc /HPF (<5) H 11/29/20 17:01 Ur Squamous Epith Cells <5 /HPF (NONE SEEN) 11/29/20 17:01 Urine Bacteria Loaded /HPF (NONE SEEN) H 11/29/20 17:01 Urine Culture Reflexed Reflexed 11/29/20 17:01 Urine Total Protein Negative (Negative) 11/29/20 17:02 Vancomycin Trough < 0.8 ug/mL (5.0-20.0) L 11/29/20 15:12 SARS-CoV-2 RNA (RT-PCR) Negative (NEGATIVE) 11/30/20 11:45 Medications List Reviewed: Yes Assessment And Plan - Plan Physical Exam: General: Alert, In no apparent distress, Oriented x3, Obese HEENT: Atraumatic, Normocephalic Neck: Supple, 2+ carotid pulse no bruit Respiratory: Clear to auscultation bilaterally, Normal air movement Cardiovascular: Normal pulses, Regular rate/rhythm Capillary refill: <2 Seconds Gastrointestinal: Normal bowel sounds, Non-distended Musculoskeletal: No clubbing, No contractures Integumentary: Pressure ulcer (Stage IV coccyx ulcer: Luisa wound tissue red/purple discoloration. 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 Patient underwent surgical debridement on 12/01. Wound care orders [facility] from [facility] to [facility] with alginate due to no necrotic/slough tissue being present on base of wound. Pack with alginate. Continue to offload wound and avoid direct pressure. Reposition patient in bed every 2 hr during waking hr. Recommend air mattress. -blood cultures: Performed on 11/29 no growth to date. Wound culture taken on 12/01: Growing Enterobacter colace and Pseudomonas aeruginosa. Urine culture obtained on 11/29: Growing Citrobacter farmeri. All cultures show susceptibility to Levaquin. Started on probiotic -antibiotics: Continue on dual therapy IV antibiotics at this time. Continue to monitor renal function. Vancomycin trough goal of 15-20. Working with pharmacy to achieve therapeutic range. -patient started on vitamins promote wound healing including vitamin-C and zinc -protein caloric malnutrition: Recommend supplemental Ensure protein drinks -insurance denied transfer to [facility], patient and I have agreed up on SNIFF -medical management per primary team--continue monitor CBC and BMP -continue monitor for signs infection Plan of care discussed with Dr. Ospina Thank you for consultation Physician Review: Patient Assessed, Agree with Above Assessment and Plan
[2020-12-08] MEDS: CHOLESTYRAMINE/ASP 4 GM/PKT PO SCH (20:53)
[2020-12-09] MEDS: Levofloxacin500mg IV 500 MG/100 ML BAG IV SCH ×2 (00:16→23:53)
[2020-12-09] MEDS ORDERED: WATER FOR INJ,STERILE 10 ML ONE (00:56)
[2020-12-09] MEDS: ALTEPLASE 2 MG/VIAL IV SCH ×2 (01:00→23:52)
[2020-12-09] MEDS: MORPHINE 2 MG/ML SYR IV PRN ×2 (01:40→08:28)
[2020-12-09] MEDS: LEVOTHYROXINE SOD 0.075 MG TAB PO SCH (05:06)
[2020-12-09] MEDS: LEVOTHYROXINE SOD 0.1 MG TAB PO SCH (05:06)
--- NOTE | 2020-12-09 06:00 | P.PN ---
Subjective Date of Service: 12/09/20 Chief Complaint: Sacral wound Subjective: Improving, Doing well Physical Examination - Vital Signs Temperature: 97.8 F Blood Pressure: 143/67 Pulse: 94 Respirations: 18 Pulse Ox (%): 98 - Studies Medications List Reviewed: Yes Assessment & Plan Discharge Plan: Other (correction facility) Plan to discharge in: 24 Hours Physician Review Additional Text: COVID: 11/29 positive, 11/30 negative, 12/[address] Scan: COMPARISON: none. TECHNIQUE: Computed axial tomography of the abdomen pelvis was obtained. 100 cc Isovue-300 was administered intravenously. Oral contrast was not requested which limits evaluation of bowel. All CT scans are performed using dose optimization technique as appropriate and may include automated exposure control or mA/KV adjustment according to patient size. FINDINGS: Decubitus ulcer posterior lower pelvis. No abscess seen The liver, spleen, pancreas, adrenal and right kidney appear unremarkable. 2.8 centimeter left renal cyst. There is no evidence of diverticulitis. Normal appendix. Post surgical changes involve the spine. Degenerative changes Shirley catheter within the the bladder. The bladder wall is thickened. IMPRESSION: Decubitus ulcer posterior lower pelvis. No abscess seen MRI Sacrum: COMPARISON: No comparisons FINDINGS: A large, deep posterior soft tissue ulceration is present. The ulceration is 4 cm in anterior posterior dimension, 3.5 cm transverse dimension and approximately 3 cm depth. Irregular edematous tissue is seen extending the from the large ulceration into the presacral space. The coccygeal segments demonstrate diminished T1 signal with elevated T2/IR signal present. This likely indicates mild osteomyelitis. No localized fluid collection to suggest abscess. IMPRESSION: Mild osteomyelitis of the residual coccygeal segments suspected. Large posterior soft tissue ulceration. Surgery: Date: 12/01/20 12:59 Preoperative diagnosis: necrotic infected sacral decubitus ulcer Postoperative diagnosis: same Primary procedure: 1. Excisional debridement necrotic infected sacral decubitus ulcer Secondary procedure: 6 x 6 x 2.5 cm Other procedure(s): 2. Pulse lavage Estimated blood loss: < 10cc Specimen: culture, necrotic tissue Findings: see dicta Anesthesia: General Complications: None Drain(s): Other Physical exam: General: Alert, In no apparent distress, Cardiovascular: Regular rate/rhythm, Normal S1 S2, Systolic murmur Gastrointestinal: Normal bowel sounds, Soft and benign, Non-distended, No tenderness Musculoskeletal: No clubbing, No swelling, Tenderness (Spinal tenderness), wheelchair at bedside. 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 Patient was denied LTAC. Spoke with dental assistant medical assistant for insurance. Patient more appropriate for skilled placement. Family has decided on skilled placement. Await approval. Patient status post excisional debridement. Pain well controlled. Pain medications adjusted. Infectious disease has adjusted IV antibiotic therapy for skilled placement. Continue with IV Levaquin 500 mg daily. Patient will need 6 to 8 weeks of IV antibiotic therapy. PICC line in place. Pharmacy to monitor and adjust medication. Await approval for skilled placement facility. CAD: Continue with DVT prophylaxisheparin. Continue with Plavix 75 mg daily. Hypertension: Continue with hydralazine 25 mg 3 times a day and metoprolol 25 mg daily. Parameters in place. Hyperlipidemia: Continue with Zetia 10 mg daily. Hypothyroidism: Continue with Synthroid 175 mcg daily. BPH: Continue with Flomax 0.4 mg daily COVID: 11/29 positive, 11/30 negative, 12/03 negative Obesity, BMI 33.9: Continue to address lifestyle modification education. DVT prophylaxis: Heparin CODE STATUS: Full code [facility] care [id number] minutes: Await approval for skilled placement. Time Spent Managing Pts Care (In Minutes): 55
[2020-12-09] MEDS: ZINC SULFATE 220 MG CAP PO SCH (08:27)
[2020-12-09] MEDS: METOPROLOL TAR 25 MG TAB PO SCH (08:27)
[2020-12-09] MEDS: LACTOBACILLUS/ACIDOPHILUS TAB PO SCH ×2 (08:27→19:52)
[2020-12-09] MEDS: ASCORBIC ACID 500 MG TABLET PO SCH (08:27)
[2020-12-09] MEDS: HYDRALAZINE HCL 25 MG TABLET PO SCH ×3 (08:27→19:52)
[2020-12-09] MEDS: EZETIMIBE 10 MG TAB PO SCH (08:27)
[2020-12-09] MEDS: HEPARIN 5000 UNIT/ML 1 ML VIAL SQ SCH ×2 (08:27→19:53)
[2020-12-09] MEDS: TAMSULOSIN 0.4 MG SR CAP PO SCH (08:27)
[2020-12-09] MEDS: CLOPIDOGREL 75 MG TABLET PO SCH (08:27)
[2020-12-09] MEDS: JUVEN PACKET PO SCH ×2 (08:28→19:54)
[2020-12-09] MEDS: ENSURE HIGH PROTEIN 237 ML CAN PO SCH ×2 (08:28→19:54)
[2020-12-09] MEDS: MEDIHONEY 44 ML TOPICAL TUBE TOP SCH (08:28)
[2020-12-09] MEDS: HYDROCODONE/APAP 5/325 MG TAB PO PRN ×2 (14:22→19:53)
[2020-12-09] MEDS: CHOLESTYRAMINE/ASP 4 GM/PKT PO SCH (19:52)
[2020-12-10] MEDS: MELATONIN 5 MG TABLET PO PRN (00:10)
[2020-12-10] MEDS: HYDROCODONE/APAP 5/325 MG TAB PO PRN ×3 (01:15→19:43)
--- NOTE | 2020-12-10 05:56 | P.PN ---
Subjective Date of Service: 12/10/20 Chief Complaint: Sacral wound Subjective: Improving, Doing well Physical Examination - Vital Signs Temperature: 97.1 F Blood Pressure: 120/56 Pulse: 85 Respirations: 18 Pulse Ox (%): 97 - Studies Medications List Reviewed: Yes Assessment & Plan Discharge Plan: Other ([facility] facility) Plan to discharge in: 24 Hours Physician Review Additional Text: COVID: 11/29 positive, 11/30 negative, 12/[address] Scan: COMPARISON: none. TECHNIQUE: Computed axial tomography of the abdomen pelvis was obtained. 100 cc Isovue-300 was administered intravenously. Oral contrast was not requested which limits evaluation of bowel. All CT scans are performed using dose optimization technique as appropriate and may include automated exposure control or mA/KV adjustment according to patient size. FINDINGS: Decubitus ulcer posterior lower pelvis. No abscess seen The liver, spleen, pancreas, adrenal and right kidney appear unremarkable. 2.8 centimeter left renal cyst. There is no evidence of diverticulitis. Normal appendix. Post surgical changes involve the spine. Degenerative changes Shirley catheter within the the bladder. The bladder wall is thickened. IMPRESSION: Decubitus ulcer posterior lower pelvis. No abscess seen MRI Sacrum: COMPARISON: No comparisons FINDINGS: A large, deep posterior soft tissue ulceration is present. The ulceration is 4 cm in anterior posterior dimension, 3.5 cm transverse dimension and approximately 3 cm depth. Irregular edematous tissue is seen extending the from the large ulceration into the presacral space. The coccygeal segments demonstrate diminished T1 signal with elevated T2/IR signal present. This likely indicates mild osteomyelitis. No localized fluid collection to suggest abscess. IMPRESSION: Mild osteomyelitis of the residual coccygeal segments suspected. Large posterior soft tissue ulceration. Surgery: Date: 12/01/20 12:59 Preoperative diagnosis: necrotic infected sacral decubitus ulcer Postoperative diagnosis: same Primary procedure: 1. Excisional debridement necrotic infected sacral decubitus ulcer Secondary procedure: 6 x 6 x 2.5 cm Other procedure(s): 2. Pulse lavage Estimated blood loss: < 10cc Specimen: culture, necrotic tissue Findings: see dicta Anesthesia: General Complications: None Drain(s): Other Physical exam: General: Alert, In no apparent distress, Cardiovascular: Regular rate/rhythm, Normal S1 S2, Systolic murmur Gastrointestinal: Normal bowel sounds, Soft and benign, Non-distended, No tenderness Musculoskeletal: No clubbing, No swelling, Tenderness (Spinal tenderness), wheelchair at bedside. 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 Patient was denied LTAC. Spoke with hospital medical assistant for insurance. Patient more appropriate for skilled placement. Family has decided on skilled placement. Await approval, this will likely occur tomorrow.. Patient status post excisional debridement. Pain well controlled. Pain medications adjusted. Infectious disease has adjusted IV antibiotic therapy for skilled placement. Continue with IV Levaquin 500 mg daily. Patient will need 6 to 8 weeks of IV antibiotic therapy. PICC line in place. Cathflo provided this morning. May need to have PICC line nurse evaluate PICC line. Pharmacy to monitor and adjust medication. Await approval for skilled placement facility. I will turn the service over to the hospitalist team tomorrow. I will go plan of care with him. CAD: Continue with DVT prophylaxisheparin. Continue with Plavix 75 mg daily. Hypertension: Continue with hydralazine 25 mg 3 times a day and metoprolol 25 mg daily. Parameters in place. Hyperlipidemia: Continue with Zetia 10 mg daily. Hypothyroidism: Continue with Synthroid 175 mcg daily. BPH: Continue with Flomax 0.4 mg daily COVID: 11/29 positive, 11/30 negative, 12/03 negative Obesity, BMI 33.9: Continue to address lifestyle modification education. DVT prophylaxis: Heparin CODE STATUS: Full code [facility] minutes: Await approval for skilled placement. Time Spent Managing Pts Care (In Minutes): 55
[2020-12-10] MEDS: LEVOTHYROXINE SOD 0.075 MG TAB PO SCH (06:07)
[2020-12-10] MEDS: LEVOTHYROXINE SOD 0.1 MG TAB PO SCH (06:07)
[2020-12-10] MEDS: TAMSULOSIN 0.4 MG SR CAP PO SCH (09:25)
[2020-12-10] MEDS: CLOPIDOGREL 75 MG TABLET PO SCH (09:25)
[2020-12-10] MEDS: EZETIMIBE 10 MG TAB PO SCH (09:25)
[2020-12-10] MEDS: ZINC SULFATE 220 MG CAP PO SCH (09:25)
[2020-12-10] MEDS: ASCORBIC ACID 500 MG TABLET PO SCH (09:25)
[2020-12-10] MEDS: METOPROLOL TAR 25 MG TAB PO SCH (09:25)
[2020-12-10] MEDS: LACTOBACILLUS/ACIDOPHILUS TAB PO SCH ×2 (09:26→19:43)
[2020-12-10] MEDS: HEPARIN 5000 UNIT/ML 1 ML VIAL SQ SCH ×2 (09:26→19:44)
[2020-12-10] MEDS: JUVEN PACKET PO SCH ×2 (09:26→19:44)
[2020-12-10] MEDS: HYDRALAZINE HCL 25 MG TABLET PO SCH ×3 (09:26→19:44)
[2020-12-10] MEDS: ENSURE HIGH PROTEIN 237 ML CAN PO SCH ×2 (09:26→19:44)
[2020-12-10] MEDS: MEDIHONEY 44 ML TOPICAL TUBE TOP SCH (09:27)
[2020-12-10] MEDS: CHOLESTYRAMINE/ASP 4 GM/PKT PO SCH (19:43)
[2020-12-10] MEDS ORDERED: LORazepam 2 MG/ML VIAL IV ONE (22:08)
[2020-12-10] MEDS: Levofloxacin500mg IV 500 MG/100 ML BAG IV SCH (23:56)
[2020-12-11] MEDS: LEVOTHYROXINE SOD 0.075 MG TAB PO SCH (05:20)
[2020-12-11] MEDS: LEVOTHYROXINE SOD 0.1 MG TAB PO SCH (05:20)
[2020-12-11] MEDS: ASCORBIC ACID 500 MG TABLET PO SCH (09:00)
[2020-12-11] MEDS: TAMSULOSIN 0.4 MG SR CAP PO SCH (09:00)
[2020-12-11] MEDS: ENSURE HIGH PROTEIN 237 ML CAN PO SCH ×2 (09:00→20:45)
[2020-12-11] MEDS: CLOPIDOGREL 75 MG TABLET PO SCH (09:00)
[2020-12-11] MEDS: JUVEN PACKET PO SCH ×2 (09:00→20:45)
[2020-12-11] MEDS: METOPROLOL TAR 25 MG TAB PO SCH (09:00)
[2020-12-11] MEDS: ZINC SULFATE 220 MG CAP PO SCH (09:00)
[2020-12-11] MEDS: MEDIHONEY 44 ML TOPICAL TUBE TOP SCH (09:00)
[2020-12-11] MEDS: LACTOBACILLUS/ACIDOPHILUS TAB PO SCH ×2 (09:00→20:45)
[2020-12-11] MEDS: HEPARIN 5000 UNIT/ML 1 ML VIAL SQ SCH ×2 (09:00→20:45)
[2020-12-11] MEDS: EZETIMIBE 10 MG TAB PO SCH (09:00)
[2020-12-11] MEDS: HYDRALAZINE HCL 25 MG TABLET PO SCH ×3 (09:00→20:45)
--- NOTE | 2020-12-11 11:00 | P.PN ---
Subjective Date of Service: 12/11/20 Chief Complaint: Sacral wound Patient seen examined at bedside, awaiting transfer. Review of Systems 10-point ROS is otherwise unremarkable Physical Examination - Vital Signs Temperature: 98.6 F Blood Pressure: 124/65 Pulse: 107 Respirations: 17 Pulse Ox (%): 98 - Studies Laboratory Last Values WBC 8.60 K/uL (4.3-10.9) D 11/30/20 03:09 RBC 3.77 M/uL (4.33-5.43) L 11/30/20 03:09 Hgb 11.6 g/dL (13.6-17.9) L 11/30/20 03:09 Hct 34.2 % (39.6-49.0) L 11/30/20 03:09 MCV 90.7 fL (80-100) 11/30/20 03:09 MCH 30.9 pg (27.0-35.0) 11/30/20 03:09 MCHC 34.1 g/dL (32.0-36.0) 11/30/20 03:09 RDW 14.0 % (12.1-15.2) 11/30/20 03:09 Plt Count 299 K/uL (152-406) 11/30/20 03:09 MPV 7.5 fL (7.6-11.3) L 11/30/20 03:09 Neutrophils % 59.8 % (41.7-73.7) 11/30/20 03:09 Lymphocytes % 20.9 % (15.3-44.8) 11/30/20 03:09 Monocytes % 14.6 % (3.3-12.3) H 11/30/20 03:09 Eosinophils % 4.3 % (0-4.4) 11/30/20 03:09 Basophils % 0.4 % (0-1.3) 11/30/20 03:09 Absolute Neutrophils 5.2 K/uL (1.8-8.0) 11/30/20 03:09 Absolute Lymphocytes 1.8 K/uL (0.7-4.9) 11/30/20 03:09 Absolute Monocytes 1.3 K/uL (0.1-1.3) 11/30/20 03:09 Absolute Eosinophils 0.4 K/uL (0-0.5) 11/30/20 03:09 Absolute Basophils 0.0 K/uL (0-0.5) 11/30/20 03:09 PT 14.1 SECONDS (9.5-12.5) H 11/30/20 03:09 INR 1.22 11/30/20 03:09 Sodium 134 mmol/L (136-145) L 11/29/20 15:12 Sodium Cancelled 11/29/20 15:12 Potassium 4.0 mmol/L (3.5-5.1) 11/29/20 15:12 Potassium Cancelled 11/29/20 15:12 Chloride 94 mmol/L (98-107) L 11/29/20 15:12 Chloride Cancelled 11/29/20 15:12 Carbon Dioxide 35 mmol/L (21-32) H 11/29/20 15:12 Carbon Dioxide Cancelled 11/29/20 15:12 BUN 22 mg/dL (7-18) H 11/29/20 15:12 BUN Cancelled 11/29/20 15:12 Creatinine 0.80 mg/dL (0.55-1.3) 11/29/20 15:12 Creatinine Cancelled 11/29/20 15:12 Estimated GFR > 90 mL/min (=/>90) 11/29/20 15:12 Estimated GFR Cancelled 11/29/20 15:12 Glucose 106 mg/dL (74-106) 11/29/20 15:12 Glucose Cancelled 11/29/20 15:12 Hemoglobin A1c 5.8 % (4.2-6.3) 11/29/20 15:12 Lactic Acid 1.2 mmol/L (0.4-2.0) 11/29/20 15:11 Calcium 9.6 mg/dL (8.5-10.1) 11/29/20 15:12 Calcium Cancelled 11/29/20 15:12 Magnesium 2.3 mg/dL (1.8-2.4) 11/29/20 15:12 Total Bilirubin 0.6 mg/dL (0.2-1.0) 11/29/20 15:12 Direct Bilirubin 0.2 mg/dL (0-0.2) 11/29/20 15:12 AST 17 U/L (15-37) 11/29/20 15:12 ALT 22 U/L (12-78) 11/29/20 15:12 Alkaline Phosphatase 72 U/L (45-117) 11/29/20 15:12 Rapid Troponin I < 0.02 ng/mL (0.0-0.045) 11/29/20 15:12 NT-Pro-B Natriuret Pep 107 pg/mL (<450) 11/29/20 15:12 Serum Total Protein 8.4 g/dL (6.4-8.2) H 11/29/20 15:12 Albumin 3.0 g/dL (3.4-5.0) L 11/29/20 15:12 Globulin 5.4 g/dL (2.3-3.5) H 11/29/20 15:12 Albumin/Globulin Ratio 0.6 (1.1-1.8) L 11/29/20 15:12 Triglycerides 101 mg/dL (<150) 11/30/20 03:09 Cholesterol 170 mg/dL (<200) 11/30/20 03:09 LDL Cholesterol, Calc 117 (<130) 11/30/20 03:09 HDL Cholesterol 33 mg/dL (40-60) L 11/30/20 03:09 Cholesterol/HDL Ratio 5.15 11/30/20 03:09 Procalcitonin < 0.05 ng/mL (<0.050) 11/29/20 15:12 Urine pH 5.5 (5.0-7.0) 11/29/20 17:02 Ur Specific [place] 1.015 (1.005-1.030) 11/29/20 17:02 Glucose (UA)(Auto) Negative (Negative) 11/29/20 17:02 Urine Ketones Negative (Negative) 11/29/20 17:02 Urine Blood Trace-intact (Negative) H 11/29/20 17:02 Urine Nitrite Positive (Negative) H 11/29/20 17:02 Ur Leukocyte Esterase 2+ (Negative) H 11/29/20 17:02 Urine RBC <5 /HPF (NONE SEEN) 11/29/20 17:01 Urine WBC Tntc /HPF (<5) H 11/29/20 17:01 Ur Squamous Epith Cells <5 /HPF (NONE SEEN) 11/29/20 17:01 Urine Bacteria Loaded /HPF (NONE SEEN) H 11/29/20 17:01 Urine Culture Reflexed Reflexed 11/29/20 17:01 Urine Total Protein Negative (Negative) 11/29/20 17:02 Vancomycin Trough < 0.8 ug/mL (5.0-20.0) L 11/29/20 15:12 SARS-CoV-2 RNA (RT-PCR) Negative (NEGATIVE) 11/30/20 11:45 Medications List Reviewed: Yes Assessment And Plan - Plan Physical Exam: General: Alert, In no apparent distress, Oriented x3, Obese HEENT: Atraumatic, Normocephalic Neck: Supple, 2+ carotid pulse no bruit Respiratory: Clear to auscultation bilaterally, Normal air movement Cardiovascular: Normal pulses, Regular rate/rhythm Capillary refill: <2 Seconds Gastrointestinal: Normal bowel sounds, Non-distended Musculoskeletal: No clubbing, No contractures Integumentary: Pressure ulcer (Stage IV coccyx ulcer: Luisa wound tissue red/purple discoloration. 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 Patient underwent surgical debridement on 12/01. Wound care orders change from Santyl to Medihoney with alginate due to no necrotic/slough tissue being present on base of wound. Pack with alginate. Continue to offload wound and avoid direct pressure. Reposition patient in bed every 2 hr during waking hr. Recommend air mattress. -blood cultures: Performed on 11/29 no growth to date. Wound culture taken on 12/01: Growing Enterobacter colace and Pseudomonas aeruginosa. Urine culture obtained on 11/29: Growing Citrobacter farmeri. All cultures show aquino sceptibility to Levaquin. Started on probiotic -antibiotics: Continue on dual therapy IV antibiotics at this time. Continue to monitor renal function. Vancomycin trough goal of 15-20. Working with pharmacy to achieve therapeutic range. -patient started on vitamins promote wound healing including vitamin-C and zinc -protein caloric malnutrition: Recommend supplemental Ensure protein drinks -insurance denied transfer to [facility] [employer], patient and I have agreed on SNIFF -medical management per primary team--continue monitor CBC and BMP -continue monitor for signs infection Plan of care discussed with Dr. Ospina Thank you for consultation Physician Review: Patient Assessed, Agree with Above Assessment and Plan
[2020-12-11] MEDS: HYDROCODONE/APAP 5/325 MG TAB PO PRN ×2 (15:42→22:24)
[2020-12-11] MEDS: CHOLESTYRAMINE/ASP 4 GM/PKT PO SCH (20:46)
[2020-12-11] MEDS: MELATONIN 5 MG TABLET PO PRN (22:24)
[2020-12-12] MEDS: Levofloxacin500mg IV 500 MG/100 ML BAG IV SCH
[2020-12-12] MEDS: TRAMADOL HCL 50 MG TAB PO PRN ×2 (03:38→18:15)
[2020-12-12] MEDS: HYDROCODONE/APAP 5/325 MG TAB PO PRN ×3 (04:38→22:36)
[2020-12-12] MEDS: LEVOTHYROXINE SOD 0.1 MG TAB PO SCH (05:59)
[2020-12-12] MEDS: LEVOTHYROXINE SOD 0.075 MG TAB PO SCH (05:59)
[2020-12-12] MEDS: JUVEN PACKET PO SCH ×2 (09:00→22:33)
[2020-12-12] MEDS: ENSURE HIGH PROTEIN 237 ML CAN PO SCH ×2 (09:00→22:33)
[2020-12-12] MEDS: TAMSULOSIN 0.4 MG SR CAP PO SCH (09:07)
[2020-12-12] MEDS: LACTOBACILLUS/ACIDOPHILUS TAB PO SCH ×2 (09:07→22:32)
[2020-12-12] MEDS: ZINC SULFATE 220 MG CAP PO SCH (09:07)
[2020-12-12] MEDS: HYDRALAZINE HCL 25 MG TABLET PO SCH ×3 (09:07→22:32)
[2020-12-12] MEDS: ASCORBIC ACID 500 MG TABLET PO SCH (09:08)
[2020-12-12] MEDS: CLOPIDOGREL 75 MG TABLET PO SCH (09:08)
[2020-12-12] MEDS: METOPROLOL TAR 25 MG TAB PO SCH (09:08)
[2020-12-12] MEDS: HEPARIN 5000 UNIT/ML 1 ML VIAL SQ SCH ×2 (09:08→22:32)
[2020-12-12] MEDS: EZETIMIBE 10 MG TAB PO SCH (09:08)
[2020-12-12] MEDS: MEDIHONEY 44 ML TOPICAL TUBE TOP SCH (09:09)
--- NOTE | 2020-12-12 10:15 | P.PN ---
Subjective Date of Service: 12/12/20 Chief Complaint: Sacral wound Patient seen examined at bedside, states he is feeling well denies any acute complaints. Does state he is having some constipation, would like to try prune juice. Review of Systems 10-point ROS is otherwise unremarkable Physical Examination - Vital Signs Temperature: 97.3 F Blood Pressure: 136/61 Pulse: 73 Respirations: 18 Pulse Ox (%): 96 - Studies Laboratory Last Values WBC 8.60 K/uL (4.3-10.9) D 11/30/20 03:09 RBC 3.77 M/uL (4.33-5.43) L 11/30/20 03:09 Hgb 11.6 g/dL (13.6-17.9) L 11/30/20 03:09 Hct 34.2 % (39.6-49.0) L 11/30/20 03:09 MCV 90.7 fL (80-100) 11/30/20 03:09 MCH 30.9 pg (27.0-35.0) 11/30/20 03:09 MCHC 34.1 g/dL (32.0-36.0) 11/30/20 03:09 RDW 14.0 % (12.1-15.2) 11/30/20 03:09 Plt Count 299 K/uL (152-406) 11/30/20 03:09 MPV 7.5 fL (7.6-11.3) L 11/30/20 03:09 Neutrophils % 59.8 % (41.7-73.7) 11/30/20 03:09 Lymphocytes % 20.9 % (15.3-44.8) 11/30/20 03:09 Monocytes % 14.6 % (3.3-12.3) H 11/30/20 03:09 Eosinophils % 4.3 % (0-4.4) 11/30/20 03:09 Basophils % 0.4 % (0-1.3) 11/30/20 03:09 Absolute Neutrophils 5.2 K/uL (1.8-8.0) 11/30/20 03:09 Absolute Lymphocytes 1.8 K/uL (0.7-4.9) 11/30/20 03:09 Absolute Monocytes 1.3 K/uL (0.1-1.3) 11/30/20 03:09 Absolute Eosinophils 0.4 K/uL (0-0.5) 11/30/20 03:09 Absolute Basophils 0.0 K/uL (0-0.5) 11/30/20 03:09 PT 14.1 SECONDS (9.5-12.5) H 11/30/20 03:09 INR 1.22 11/30/20 03:09 Sodium 134 mmol/L (136-145) L 11/29/20 15:12 Sodium Cancelled 11/29/20 15:12 Potassium 4.0 mmol/L (3.5-5.1) 11/29/20 15:12 Potassium Cancelled 11/29/20 15:12 Chloride 94 mmol/L (98-107) L 11/29/20 15:12 Chloride Cancelled 11/29/20 15:12 Carbon Dioxide 35 mmol/L (21-32) H 11/29/20 15:12 Carbon Dioxide Cancelled 11/29/20 15:12 BUN 22 mg/dL (7-18) H 11/29/20 15:12 BUN Cancelled 11/29/20 15:12 Creatinine 0.80 mg/dL (0.55-1.3) 11/29/20 15:12 Creatinine Cancelled 11/29/20 15:12 Estimated GFR > 90 mL/min (=/>90) 11/29/20 15:12 Estimated GFR Cancelled 11/29/20 15:12 Glucose 106 mg/dL (74-106) 11/29/20 15:12 Glucose Cancelled 11/29/20 15:12 Hemoglobin A1c 5.8 % (4.2-6.3) 11/29/20 15:12 Lactic Acid 1.2 mmol/L (0.4-2.0) 11/29/20 15:11 Calcium 9.6 mg/dL (8.5-10.1) 11/29/20 15:12 Calcium Cancelled 11/29/20 15:12 Magnesium 2.3 mg/dL (1.8-2.4) 11/29/20 15:12 Total Bilirubin 0.6 mg/dL (0.2-1.0) 11/29/20 15:12 Direct Bilirubin 0.2 mg/dL (0-0.2) 11/29/20 15:12 AST 17 U/L (15-37) 11/29/20 15:12 ALT 22 U/L (12-78) 11/29/20 15:12 Alkaline Phosphatase 72 U/L (45-117) 11/29/20 15:12 Rapid Troponin I < 0.02 ng/mL (0.0-0.045) 11/29/20 15:12 NT-Pro-B Natriuret Pep 107 pg/mL (<450) 11/29/20 15:12 Serum Total Protein 8.4 g/dL (6.4-8.2) H 11/29/20 15:12 Albumin 3.0 g/dL (3.4-5.0) L 11/29/20 15:12 Globulin 5.4 g/dL (2.3-3.5) H 11/29/20 15:12 Albumin/Globulin Ratio 0.6 (1.1-1.8) L 11/29/20 15:12 Triglycerides 101 mg/dL (<150) 11/30/20 03:09 Cholesterol 170 mg/dL (<200) 11/30/20 03:09 LDL Cholesterol, Calc 117 (<130) 11/30/20 03:09 HDL Cholesterol 33 mg/dL (40-60) L 11/30/20 03:09 Cholesterol/HDL Ratio 5.15 11/30/20 03:09 Procalcitonin < 0.05 ng/mL (<0.050) 11/29/20 15:12 Urine pH 5.5 (5.0-7.0) 11/29/20 17:02 Ur Specific [place] 1.015 (1.005-1.030) 11/29/20 17:02 Glucose (UA)(Auto) Negative (Negative) 11/29/20 17:02 Urine Ketones Negative (Negative) 11/29/20 17:02 Urine Blood Trace-intact (Negative) H 11/29/20 17:02 Urine Nitrite Positive (Negative) H 11/29/20 17:02 Ur Leukocyte Esterase 2+ (Negative) H 11/29/20 17:02 Urine RBC <5 /HPF (NONE SEEN) 11/29/20 17:01 Urine WBC Tntc /HPF (<5) H 11/29/20 17:01 Ur Squamous Epith Cells <5 /HPF (NONE SEEN) 11/29/20 17:01 Urine Bacteria Loaded /HPF (NONE SEEN) H 11/29/20 17:01 Urine Culture Reflexed Reflexed 11/29/20 17:01 Urine Total Protein Negative (Negative) 11/29/20 17:02 Vancomycin Trough < 0.8 ug/mL (5.0-20.0) L 11/29/20 15:12 SARS-CoV-2 RNA (RT-PCR) Negative (NEGATIVE) 11/30/20 11:45 Medications List Reviewed: Yes Assessment And Plan - Plan Physical Exam: General: Alert, In no apparent distress, Oriented x3, Obese HEENT: Atraumatic, Normocephalic Neck: Supple, 2+ carotid pulse no bruit Respiratory: Clear to auscultation bilaterally, Normal air movement Cardiovascular: Normal pulses, Regular rate/rhythm Capillary refill: <2 Seconds Gastrointestinal: Normal bowel sounds, Non-distended Musculoskeletal: No clubbing, No contractures Integumentary: Pressure ulcer (Stage IV coccyx ulcer: Luisa wound tissue red/purple discoloration. 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 Patient underwent surgical debridement on 12/01. Wound care orders change from Santyl to Mediney with alginate due to no necrotic/slough tissue being present on base of wound. Pack with alginate. Continue to offload wound and avoid direct pressure. Reposition patient in bed every 2 hr during waking hr. Recommend air mattress. -blood cultures: Performed on 11/29 no growth to date. Wound culture taken on 12/01: Growing Enterobacter colace and Pseudomonas aeruginosa. Urine culture obtained on 11/29: Growing Citrobacter farmeri. All cultures show susceptibility to Levaquin. Started on probiotic -antibiotics: Continue on dual therapy IV antibiotics at this time. Continue to monitor renal function. Vancomycin trough goal of 15-20. Working with pharmacy to achieve therapeutic range. -patient started on vitamins promote wound healing including vitamin-C and zinc -protein caloric malnutrition: Recommend supplemental Ensure protein drinks -insurance denied transfer to [facility] [employer], patient and I have agreed on SNIFF -medical management per primary team--continue monitor CBC and BMP -continue monitor for signs infection Plan of care discussed with Dr. Ospina Thank you for consultation Physician Review: Patient Assessed, Agree with Above Assessment and Plan
[2020-12-12] MEDS: CHOLESTYRAMINE/ASP 4 GM/PKT PO SCH (22:33)
[2020-12-12] MEDS: MELATONIN 5 MG TABLET PO PRN (22:35)
[2020-12-13] MEDS: Levofloxacin500mg IV 500 MG/100 ML BAG IV SCH (00:09)
[2020-12-13] MEDS: HYDROCODONE/APAP 5/325 MG TAB PO PRN (04:06)
[2020-12-13] MEDS: LEVOTHYROXINE SOD 0.075 MG TAB PO SCH (06:22)
[2020-12-13] MEDS: LEVOTHYROXINE SOD 0.1 MG TAB PO SCH (06:22)
[2020-12-13 08:07] VITALS: BP 115/58; TEMP 97.6
[2020-12-13] MEDS: METOPROLOL TAR 25 MG TAB PO SCH (08:36)
[2020-12-13] MEDS: LACTOBACILLUS/ACIDOPHILUS TAB PO SCH (08:36)
[2020-12-13] MEDS: ASCORBIC ACID 500 MG TABLET PO SCH (08:37)
[2020-12-13] MEDS: TAMSULOSIN 0.4 MG SR CAP PO SCH (08:37)
[2020-12-13] MEDS: CLOPIDOGREL 75 MG TABLET PO SCH (08:37)
[2020-12-13] MEDS: EZETIMIBE 10 MG TAB PO SCH (08:37)
[2020-12-13] MEDS: HEPARIN 5000 UNIT/ML 1 ML VIAL SQ SCH (08:37)
[2020-12-13] MEDS: ZINC SULFATE 220 MG CAP PO SCH (08:37)
[2020-12-13] MEDS: ENSURE HIGH PROTEIN 237 ML CAN PO SCH (08:38)
[2020-12-13] MEDS: MEDIHONEY 44 ML TOPICAL TUBE TOP SCH (08:38)
[2020-12-13] MEDS: HYDRALAZINE HCL 25 MG TABLET PO SCH (08:38)
[2020-12-13] MEDS: JUVEN PACKET PO SCH (08:38)
[2020-12-13 09:51] VITALS: O2SAT 96
--- NOTE | 2020-12-13 10:06 | P.PN ---
Subjective Date of Service: 12/13/20 Chief Complaint: Sacral wound Patient seen examined at bedside, repeat labs ordered. Review of Systems 10-point ROS is otherwise unremarkable Physical Examination - Vital Signs Temperature: 97.6 F Blood Pressure: 115/58 Pulse: 90 Respirations: 17 Pulse Ox (%): 98 - Studies Laboratory Last Values WBC 8.60 K/uL (4.3-10.9) D 11/30/20 03:09 RBC 3.77 M/uL (4.33-5.43) L 11/30/20 03:09 Hgb 11.6 g/dL (13.6-17.9) L 11/30/20 03:09 Hct 34.2 % (39.6-49.0) L 11/30/20 03:09 MCV 90.7 fL (80-100) 11/30/20 03:09 MCH 30.9 pg (27.0-35.0) 11/30/20 03:09 MCHC 34.1 g/dL (32.0-36.0) 11/30/20 03:09 RDW 14.0 % (12.1-15.2) 11/30/20 03:09 Plt Count 299 K/uL (152-406) 11/30/20 03:09 MPV 7.5 fL (7.6-11.3) L 11/30/20 03:09 Neutrophils % 59.8 % (41.7-73.7) 11/30/20 03:09 Lymphocytes % 20.9 % (15.3-44.8) 11/30/20 03:09 Monocytes % 14.6 % (3.3-12.3) H 11/30/20 03:09 Eosinophils % 4.3 % (0-4.4) 11/30/20 03:09 Basophils % 0.4 % (0-1.3) 11/30/20 03:09 Absolute Neutrophils 5.2 K/uL (1.8-8.0) 11/30/20 03:09 Absolute Lymphocytes 1.8 K/uL (0.7-4.9) 11/30/20 03:09 Absolute Monocytes 1.3 K/uL (0.1-1.3) 11/30/20 03:09 Absolute Eosinophils 0.4 K/uL (0-0.5) 11/30/20 03:09 Absolute Basophils 0.0 K/uL (0-0.5) 11/30/20 03:09 PT 14.1 SECONDS (9.5-12.5) H 11/30/20 03:09 INR 1.22 11/30/20 03:09 Sodium 134 mmol/L (136-145) L 11/29/20 15:12 Sodium Cancelled 11/29/20 15:12 Potassium 4.0 mmol/L (3.5-5.1) 11/29/20 15:12 Potassium Cancelled 11/29/20 15:12 Chloride 94 mmol/L (98-107) L 11/29/20 15:12 Chloride Cancelled 11/29/20 15:12 Carbon Dioxide 35 mmol/L (21-32) H 11/29/20 15:12 Carbon Dioxide Cancelled 11/29/20 15:12 BUN 22 mg/dL (7-18) H 11/29/20 15:12 BUN Cancelled 11/29/20 15:12 Creatinine 0.80 mg/dL (0.55-1.3) 11/29/20 15:12 Creatinine Cancelled 11/29/20 15:12 Estimated GFR > 90 mL/min (=/>90) 11/29/20 15:12 Estimated GFR Cancelled 11/29/20 15:12 Glucose 106 mg/dL (74-106) 11/29/20 15:12 Glucose Cancelled 11/29/20 15:12 Hemoglobin A1c 5.8 % (4.2-6.3) 11/29/20 15:12 Lactic Acid 1.2 mmol/L (0.4-2.0) 11/29/20 15:11 Calcium 9.6 mg/dL (8.5-10.1) 11/29/20 15:12 Calcium Cancelled 11/29/20 15:12 Magnesium 2.3 mg/dL (1.8-2.4) 11/29/20 15:12 Total Bilirubin 0.6 mg/dL (0.2-1.0) 11/29/20 15:12 Direct Bilirubin 0.2 mg/dL (0-0.2) 11/29/20 15:12 AST 17 U/L (15-37) 11/29/20 15:12 ALT 22 U/L (12-78) 11/29/20 15:12 Alkaline Phosphatase 72 U/L (45-117) 11/29/20 15:12 Rapid Troponin I < 0.02 ng/mL (0.0-0.045) 11/29/20 15:12 NT-Pro-B Natriuret Pep 107 pg/mL (<450) 11/29/20 15:12 Serum Total Protein 8.4 g/dL (6.4-8.2) H 11/29/20 15:12 Albumin 3.0 g/dL (3.4-5.0) L 11/29/20 15:12 Globulin 5.4 g/dL (2.3-3.5) H 11/29/20 15:12 Albumin/Globulin Ratio 0.6 (1.1-1.8) L 11/29/20 15:12 Triglycerides 101 mg/dL (<150) 11/30/20 03:09 Cholesterol 170 mg/dL (<200) 11/30/20 03:09 LDL Cholesterol, Calc 117 (<130) 11/30/20 03:09 HDL Cholesterol 33 mg/dL (40-60) L 11/30/20 03:09 Cholesterol/HDL Ratio 5.15 11/30/20 03:09 Procalcitonin < 0.05 ng/mL (<0.050) 11/29/20 15:12 Urine pH 5.5 (5.0-7.0) 11/29/20 17:02 Ur Specific Deale 1.015 (1.005-1.030) 11/29/20 17:02 Glucose (UA)(Auto) Negative (Negative) 11/29/20 17:02 Urine Ketones Negative (Negative) 11/29/20 17:02 Urine Blood Trace-intact (Negative) H 11/29/20 17:02 Urine Nitrite Positive (Negative) H 11/29/20 17:02 Ur Leukocyte Esterase 2+ (Negative) H 11/29/20 17:02 Urine RBC <5 /HPF (NONE SEEN) 11/29/20 17:01 Urine WBC Tntc /HPF (<5) H 11/29/20 17:01 Ur Squamous Epith Cells <5 /HPF (NONE SEEN) 11/29/20 17:01 Urine Bacteria Loaded /HPF (NONE SEEN) H 11/29/20 17:01 Urine Culture Reflexed Reflexed 11/29/20 17:01 Urine Total Protein Negative (Negative) 11/29/20 17:02 Vancomycin Trough < 0.8 ug/mL (5.0-20.0) L 11/29/20 15:12 SARS-CoV-2 RNA (RT-PCR) Negative (NEGATIVE) 11/30/20 11:45 Medications List Reviewed: Yes Assessment And Plan - Plan Physical Exam: General: Alert, In no apparent distress, Oriented x3, Obese HEENT: Atraumatic, Normocephalic Neck: Supple, 2+ carotid pulse no bruit Respiratory: Clear to auscultation bilaterally, Normal air movement Cardiovascular: Normal pulses, Regular rate/rhythm Capillary refill: <2 Seconds Gastrointestinal: Normal bowel sounds, Non-distended Musculoskeletal: No clubbing, No contractures Integumentary: Pressure ulcer (Stage IV coccyx ulcer: Luisa wound tissue red/purple discoloration. 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 Patient underwent surgical debridement on 12/01. Wound care orders change from Santyl to Medihoney with alginate due to no necrotic/slough tissue being present on base of wound. Pack with alginate. Continue to offload wound and avoid direct pressure. Reposition patient in bed every 2 hr during waking hr. Recommend air mattress. -blood cultures: Performed on 11/29 no growth to date. Wound culture taken on 12/01: Growing Enterobacter colace and Pseudomonas aeruginosa. Urine culture obtained on 11/29: Growing Citrobacter farmeri. All cultures show susceptibility to Levaquin. Started on probiotic -antibiotics: Continue monotherapy with Levaquin based off of microbiology sensitivity panel -patient started on vitamins promote wound healing including vitamin-C and zinc -protein caloric malnutrition: Recommend supplemental Ensure protein drinks -insurance denied transfer to [employer], patient agreed on [facility]--awaiting placement -medical management per primary team--continue monitor CBC and BMP -continue monitor for signs infection Plan of care discussed with Dr. Ospina Thank you for consultation Physician Review: Patient Assessed, Agree with Above Assessment and Plan
--- NOTE | 2020-12-18 12:01 | P.PN ---
Date of Service: 12/11/20 Subjective Patient is doing much better. Patient clinically has improved. Plan to discharge to [facility] was accepted Review of Systems 10-point ROS is otherwise unremarkable Physical Examination - Vital Signs Reviewed - Physical Exam General: Alert, In no apparent distress, Oriented x3 Cardiovascular: Regular rate/rhythm, Normal S1 S2, Systolic murmur Gastrointestinal: Normal bowel sounds, Soft and benign, Non-distended, No tenderness Musculoskeletal: No clubbing, No swelling, Tenderness (Spinal tenderness) Neurological: Sensation intact, Cranial nerves 3-12 intact Assessment & Plan - Problems (Diagnosis) (1) Pressure ulcer of coccygeal region, stage 3/osteomyelitis Current Visit: No Status: Ruled-out (2) History of COVID-19 infection Current Visit: No Status: Chronic (3) GERD (gastroesophageal reflux disease) Current Visit: No Status: Chronic (4) CAD (coronary artery disease) w/ Coronary artery stent Current Visit: No Status: Chronic (5) Hypertension Current Visit: No Status: Chronic (6) Hypothyroidism Current Visit: No Status: Chronic (7) Obesity (BMI 30.0-34.9) Current Visit: No Status: Chronic - Plan Continue with plan of care as mentioned below: 1. Continue with IV antibiotic; Awaiting placement at a group home facility 2. Continue with local wound care 3. I appreciate consultants Assistance in patient's care 4. Gentle IV hydration 5. Monitor CBC 6. Strict blood sugar monitoring 7. Pain control 8. GI and DVT prophylaxis
--- NOTE | 2020-12-18 12:12 | P.DS ---
Discharge Date: 12/13/20 Disposition: TRANSFER TO SNF - MEDICAL Discharge Condition: GOOD Reason for Admission: Sacral wound - Problems (1) Pressure ulcer of coccygeal region, stage 3 Status: Ruled-out (2) CAD (coronary artery disease) Status: Acute (3) GERD (gastroesophageal reflux disease) Status: Acute (4) Hx of heart artery stent Status: Acute (5) Hypertension Status: Acute (6) Hypothyroidism Status: Acute (7) Obesity (BMI 30.0-34.9) Status: Acute Brief History of Present Illness: Patient is a 75-year-old male with a past medical history significant for hypothyroidism, GERD, hypertension, obesity, CAD, neuropathy who presents with complaint of sacral wound. Patient reports that he has been having decubitus ulcer in the coccyx since August 29, 2020. Patient follows up with surgeon at the wound care center. Patient also have ulcers under his right leg and upper back. Patient followed up with surgeon at the wound care center today and was referred to the hospital for possible incision and debridement. Patient reports associated signs and symptoms of low-grade fever, sacral pain, weakness and fatigue. Patient denies any other signs or symptoms. Symptoms are aggravated or relieved by nothing. Patient decided to present to the hospital as directed by his wound care doctor. Hospital Course: Patient had done well with wound care. Patient is stable for transfer to snf facility. Continue with IV antibiotic therapy. Vital Signs/Physical Exam: Temp Pulse Resp BP Pulse Ox 97.6 F 90 17 115/58 L 98 12/13/20 10:05 12/13/20 10:05 12/13/20 10:05 12/13/20 10:05 12/13/20 10:05 General: Alert, In no apparent distress, Oriented x3 Laboratory Data at Discharge: WBC Cancelled 12/13/20 Unknown Hgb Cancelled 12/13/20 Unknown Hct Cancelled 12/13/20 Unknown Plt Count Cancelled 12/13/20 Unknown PT 13.4 SECONDS (9.5-12.5) H 12/01/20 06:58 INR 1.16 12/01/20 06:58 APTT 32.5 SECONDS (24.3-36.9) 12/01/20 06:58 Sodium Cancelled 12/13/20 Unknown Potassium Cancelled 12/13/20 Unknown BUN Cancelled 12/13/20 Unknown Creatinine Cancelled 12/13/20 Unknown Glucose Cancelled 12/13/20 Unknown Phosphorus 3.4 mg/dL (2.5-4.9) 12/01/20 05:35 Magnesium 1.9 mg/dL (1.8-2.4) 12/06/20 04:55 Total Bilirubin 0.6 mg/dL (0.2-1.0) 11/29/20 15:12 AST 17 U/L (15-37) 11/29/20 15:12 ALT 22 U/L (12-78) 11/29/20 15:12 Alkaline Phosphatase 72 U/L (45-117) 11/29/20 15:12 Triglycerides 101 mg/dL (<150) 11/30/20 03:09 Cholesterol 170 mg/dL (<200) 11/30/20 03:09 HDL Cholesterol 33 mg/dL (40-60) L 11/30/20 03:09 Cholesterol/HDL Ratio 5.15 11/30/20 03:09 Home Medications: Clopidogrel Bisulfate [Plavix*] 75 mg PO DAILY 07/04/15 Ezetimibe [Zetia*] 10 mg PO DAILY 07/04/15 Furosemide [Lasix*] 40 mg PO BID 09/07/19 Levothyroxine Sodium [Synthroid] 175 mcg PO DAILY 09/07/19 Cholestyramine/Aspartame [Cholestyramine Light Packet] 2 packet PO BEDTIME 11/30/20 Famotidine 1 tab PO BEDTIME 11/30/20 Hydralazine [Apresoline*] 1 tab PO TID 11/30/20 Metoprolol Tartrate 1 tab PO DAILY 11/30/20 Tamsulosin [Flomax*] 1 cap PO DAILY 11/30/20 Ascorbic Acid [Vitamin C*] 500 mg PO DAILY #30 tablet 12/13/20 Medihoney [Medihoney Woundcare Gel*] 1 appl TOP DAILY #30 tube 12/13/20 Melatonin 10 mg PO BEDTIME PRN PRN #14 tablet 12/13/20 Zinc Sulfate [Zinc Sulfate*] 220 mg PO DAILY #20 cap 12/13/20 levoFLOXacin [Levaquin] 500 mg IVPB DAILY 35 Days bag 12/13/20 traMADol HCL [Ultram*] 50 mg PO TID PRN #30 tab 12/13/20 New Medications: levoFLOXacin [Levaquin] 500 mg IVPB DAILY 35 Days bag Medihoney [Medihoney Woundcare Gel*] 1 appl TOP DAILY #30 tube Melatonin 10 mg PO BEDTIME PRN PRN #14 tablet PRN Reason: Insomnia traMADol HCL [Ultram*] 50 mg PO TID PRN #30 tab PRN Reason: Pain Scale 2-4 (Mild) Ascorbic Acid [Vitamin C*] 500 mg PO DAILY #30 tablet Zinc Sulfate [Zinc Sulfate*] 220 mg PO DAILY #20 cap Physician Discharge Instructions: PROBLEM: Osteomyelitis of the sacrum and coccyx GOAL: Clear understanding of disease process INSTRUCTIONS: - Discharge to snf rehab with PICC line in place. - Patient has osteomyelitis of the sacrum and coccyx on MRI. Recommend Levaquin 500mg IV piggyback daily for an additional 5 weeks. - Patient needs labs checked weekly including CBC and CMP. - Wound Healing Consult at [facility]. - Daily dressing changes to wound. Medihoney and alginate. Change daily or PRN if soiled or if dressing removed. - Follow up with your primary care provider in 1-2 weeks. - Return to the ER if symptoms worsen. - Call or text Dr. Allen at if you have any questions regarding your hospital stay. - Please call the 2nd floor at if you have any medication or nursing questions. Diet: Heart Healthy Activity: Fall precautions COMMUNITY SERVICES Services Needed: Prison Name of Company: [facility] Date or Referral: 12/08/20 IMMUNIZATION Influenza Vaccine Indicated: Influenza Vaccine Given: Date Given: Pneumonia Vaccine Indicated: No Pneumonia Vaccine Given: Date Given: Diet: AHA Activity: Fall precautions Followup: Leonardo Camara MD [Primary Care Provider] - Time spent managing pt's care (in minutes): 35
--- NOTE | 2020-12-18 12:14 | P.PN ---
Date of Service: 12/12/20 Subjective Patient continues to do well. Patient with no new complaints Review of Systems 10-point ROS is otherwise unremarkable Physical Examination - Vital Signs Reviewed - Physical Exam General: Alert, In no apparent distress, Oriented x3 Cardiovascular: Regular rate/rhythm, Normal S1 S2, Systolic murmur Gastrointestinal: Normal bowel sounds, Soft and benign, Non-distended, No tenderness Musculoskeletal: No clubbing, No swelling, Tenderness (Spinal tenderness) Neurological: Sensation intact, Cranial nerves 3-12 intact Assessment & Plan - Problems (Diagnosis) (1) Pressure ulcer of coccygeal region, stage 3/osteomyelitis Current Visit: No Status: Ruled-out (2) History of COVID-19 infection Current Visit: No Status: Chronic (3) GERD (gastroesophageal reflux disease) Current Visit: No Status: Chronic (4) CAD (coronary artery disease) w/ Coronary artery stent Current Visit: No Status: Chronic (5) Hypertension Current Visit: No Status: Chronic (6) Hypothyroidism Current Visit: No Status: Chronic (7) Obesity (BMI 30.0-34.9) Current Visit: No Status: Chronic - Plan Continue with plan of care as mentioned below: 1. Continue with IV antibiotic; Awaiting placement at a senior care facility 2. Continue with local wound care 3. I appreciate consultants assistance in patient's care 4. Gentle IV hydration 5. Monitor CBC 6. Strict blood sugar monitoring 7. Pain control 8. GI and DVT prophylaxis
== END 2020-12-13 10:45 | DRG 463 ==
LOC: ER 11:17 → ERHOLD 15:58 → OBSVTOIN 11-30 13:16 → ERHOLD 11-30 13:50 → 2ND 12-03 14:14
PROVIDERS: ADMIT Nurse Practitioner Family; ATTEND Hospitalist
PROC: 0JB70ZZ Excision of Back Subcutaneous Tissue and Fascia, Open Approach (ICD-10-PCS; 2020-12-01)
PROC: 02HV33Z Insertion of Infusion Device into Superior Vena Cava, Percutaneous Approach (ICD-10-PCS; principal; 2020-12-01 11:45)
DX: M46.28 Osteomyelitis of vertebra, sacral and sacrococcygeal region (principal); L89.153 Pressure ulcer of sacral region, stage 3; E43 Unspecified severe protein-calorie malnutrition; N39.0 Urinary tract infection, site not specified; B96.89 Other specified bacterial agents as the cause of diseases classified elsewhere; B96.5 Pseudomonas (aeruginosa) (mallei) (pseudomallei) as the cause of diseases classified elsewhere; I25.10 Atherosclerotic heart disease of native coronary artery without angina pectoris; I10 Essential (primary) hypertension; E78.5 Hyperlipidemia, unspecified; E03.9 Hypothyroidism, unspecified; N40.0 Benign prostatic hyperplasia without lower urinary tract symptoms; E66.9 Obesity, unspecified; Z68.33 Body mass index [BMI] 33.0-33.9, adult; Z86.16 Personal history of COVID-19; K21.9 Gastro-esophageal reflux disease without esophagitis; Z95.5 Presence of coronary angioplasty implant and graft; D64.9 Anemia, unspecified; R01.1 Cardiac murmur, unspecified; Z20.822 Contact with and (suspected) exposure to COVID-19
CPT/HCPCS: 36415; 36569; 71045; 72195; 74177; 80048; 80061; 80076; 80202; 81003; 81015; 82565; 83036; 83605; 83735; 83880; 84100; 84145; 84484; 85025; 85610; 85652; 85730; 87040; 87070; 87075; 87077; 87086; 87088; 87186; 87205; 88304; 96360; 96361; 97110; 97112; 97162; 97165; 97530; 99213; 99284; G0378; J1644; J2270; J2405; J2704; J2997; J3010; J3370; J3590; J7030; J7040; J7050; Q9967; U0003